=== PATIENT | female | born 1980 | race Caucasian/White ===

== ENCOUNTER 2016-06-09 22:33 | Inpatient (IN) | payer OTHER ==
[~2016-06-09] VITALS: Ht 167.6 cm; Wt 95.2 kg
[~2016-06-09 22:33] MED LIST: CEPH500C PO; DOCU-144 PO; FURO20TA3 PO; HYDR-3498 PO; HYDR-902 PO; LORA0.5T PO; METO5TAB11 PO; PANT20TA2 PO; POLY17PO6 PO
[2016-06-09] MEDS ORDERED: SOD CHLORIDE 0.9% 1,000 ML IV STA (22:46)
[2016-06-09] MEDS ORDERED: ONDANSETRON 4 MG INJ IV STA (22:46)
[2016-06-09] MEDS ORDERED: morphine 4 MG/ML VIAL IV STA (22:46)
[2016-06-09 23:16] LABS: BASOPHILS % 0.5 % (0.0-2.0); EOSINOPHILS % 0.3 % (0.0-7.0); HEMATOCRIT 33.7 % (37.0-47.0); HEMOGLOBIN 11.3 g/dl (12.0-16.0); LYMPHOCYTES # 1.4 10^3/ul (0.8-2.9); LYMPHOCYTES % 14.3 % (15.0-51.0); MEAN CORPUSCULAR HEMOGLOBIN 26.4 pg (29.0-33.0); MEAN CORPUSCULAR HGB CONC 33.5 g/dl (32.0-37.0); MONOCYTE # 0.6 10^3/ul (0.3-0.9); MONOCYTES % 6.7 % (0.0-11.0); NEUTROPHIL # 7.4 10^3/ul (1.6-7.5); NEUTROPHILS % 78.2 % (39.0-77.0); PLATELET COUNT 546 10^3/UL (140-440); RED BLOOD COUNT 4.27 10^6/ul (4.20-5.40); RED CELL DISTRIBUTION WIDTH 21.8 % (11.5-14.5); UNCORRECTED WBC 9.5 10^3/ul (4.8-10.8); WHITE BLOOD COUNT 9.5 10^3/ul (4.8-10.8)
[2016-06-09 23:18] LABS: ALBUMIN 3.2 g/dl (3.3-4.9)
[2016-06-09 23:19] LABS: POTASSIUM 4.6 mmol/L (3.5-5.1)
[2016-06-09 23:21] LABS: ALBUMIN/GLOBULIN RATIO 0.94; BILIRUBIN,INDIRECT 0.3 mg/dl (0-1.1); BILIRUBIN,TOTAL 0.3 mg/dl (0.2-1.3); CALCIUM 9.2 mg/dl (8.4-10.2); CREATININE 0.44 mg/dl (0.44-1.00); TOTAL PROTEIN 6.6 g/dl (6.1-8.1)
[2016-06-09 23:33] LABS: CONDITION 1
[2016-06-09 23:34] LABS: LH ANALYZER COMMENTS 1
--- NOTE | 2016-06-09 23:37 | RADRPT ---
PROCEDURE: XR Abdomen. CLINICAL INDICATION: Abdominal pain. Gastric cancer. Evaluate for obstruction TECHNIQUE: AP abdomen x-rays, upright and supine, a total of 3 images sent to the PACS for review. COMPARISON: CT abdomen and pelvis 04/26/2016 FINDINGS: The bowel gas pattern is normal. There is no evidence of obstruction. Punctate calcifications overly ing the left renal. The osseous structures consistent with renal calculi seen previously. Diffuse "haziness" of the abd omen is suggestive of ascites seen on the prior exam.. No pneumoperitoneum is seen on the upright vi ew. Bilateral pleural effusions and basilar atelectasis of the visualized lung bases is noted. RPTAT:HJJR IMPRESSION: 1. No evidence of bowel obstruction or pneumoperitoneum. 2. Ascites is again suggested similar to the CT of 04/26/2016. 3. Bilateral pleural effusions and compressive atelectasis similar to the prior study. 4. Left renal calculi again noted. Physician Darling Date Time Electronically viewed and signed by Physician Darling on 06/09/2016 23:37 /
[2016-06-09] MEDS ORDERED: HYDROmorphONE 1 MG/ML SYG IV STA (23:53)
[2016-06-10] MEDS ORDERED: IOHEXOL 100 ML ONE (00:27)
[2016-06-10] MEDS ORDERED: SOD CHLORIDE 0.9% 100 ML ONE (00:27)
[2016-06-10] MEDS ORDERED: HEPARIN 1000 UNITS/ML 10 ML INJ IV STA (01:24)
[2016-06-10] MEDS ORDERED: HEPARIN 25000 UNITS/250 ML 250 ML IV STA (01:24)
--- NOTE | 2016-06-10 01:25 | RADRPT ---
PROCEDURE: CTA Chest and pulmonary angiogram. CLINICAL INDICATION: Tachycardia, gastric carcinoma, chest pain, shortness of breath TECHNIQUE: CT scan of the chest and CT pulmonary angiogram was performed on a multidetector high-r esolution CT scanner. High-resolution thin slice coronal and sagittal imaging was obtained from the axial source images. The patient was examined following the intravenous administration of 90 cc of Omnipaque-350. The images were reviewed on a PACS workstation. The total exam CTDI equals 17.05 mGy , and the total exam DLP equals 601.12 mGy-cm. One or more of the following dose reduction techniques were used: - Automated exposure control. - Adjustment of the mA and/or kV according to patient size. - Use of iterative reconstruction technique. COMPARISON: CT abdomen without contrast of 04/26/2016 FINDINGS: The study is limited due to suboptimal opacification of pulmonary arteries. There is appearance of small filling defects consistent with pulmonary emboli in right upper lobe, right lower lobe, lower left upper lobe and lingular segmental/subsegmental pulmonary arteries. Small bilateral partially l oculated appearing pleural effusions are seen. Moderate amount of ascites in visualized upper abdome n. Cholelithiasis. There are nonobstructing calculi in the mid left kidney the largest 4 mm. Small pericardial effusion increased compared to CT abdomen of 04/26/2016. There is approximate 9 mm short axis right paratracheal mediastinal lymph node and an approximate 1.5 cm short axis subcarinal medi astinal lymph node. Linear atelectasis/fibrosis in the lungs. No thoracic aortic aneurysm or dissec tion is seen. IMPRESSION: Limited examination. Positive for pulmonary emboli. Small bilateral partially loculated appearing p leural effusions not significantly changed compared to of 04/26/2016. Small pericardial effusion inc reased compared to 04/26/2016. Enlarged mediastinal lymph node. Moderate amount of ascites in visual ized upper abdomen increased compared to 04/26/2016. Cholelithiasis. Please see above. Critical re sult discussed with Dr. Solorio at 01:20 a.m. on 06/10/2016. RPTAT: HJES .Damien Frost MD, MD Date Time Electronically viewed and signed by .Damien Frost MD, on 06/10/2016 01:25 .S/
[2016-06-10] MEDS ORDERED: ASPIRIN 81 MG TAB PO ONE (01:30)
[2016-06-10] MEDS ORDERED: DICLOFENAC SODIUM 37.5 MG/ML VIAL IV STA (01:41)
[2016-06-10] MEDS ORDERED: ACETAMINOPHEN 325 MG TAB PO PRN ×2 (02:00→07:30)
[2016-06-10] MEDS ORDERED: ONDANSETRON 4 MG INJ IV PRN (02:00)
[2016-06-10] MEDS ORDERED: SOD CHLORIDE 0.9% 1,000 ML IV ONE ×2 (03:30)
[2016-06-10 06:53] VITALS: TEMP 98.2
[2016-06-10] MEDS ORDERED: morphine 2 MG INJ IV PRN (07:30)
[2016-06-10] MEDS ORDERED: HYDROmorphONE 1 MG/ML SYG IV STA (07:30)
[2016-06-10] MEDS ORDERED: NACL 0.9% 3 ML SYG IV SCH (07:30)
[2016-06-10 08:29] LABS: BASOPHILS % 0.1 % (0.0-2.0); EOSINOPHILS % 0.2 % (0.0-7.0); LYMPHOCYTES # 1.5 10^3/ul (0.8-2.9); LYMPHOCYTES % 16.5 % (15.0-51.0); MEAN CORPUSCULAR HEMOGLOBIN 26.4 pg (29.0-33.0); MEAN CORPUSCULAR HGB CONC 33.3 g/dl (32.0-37.0); MEAN CORPUSCULAR VOLUME 79.3 fl (82.0-101.0); MEAN PLATELET VOLUME 6.3 fl (7.4-10.4); MONOCYTE # 0.6 10^3/ul (0.3-0.9); MONOCYTES % 6.9 % (0.0-11.0); NEUTROPHIL # 6.8 10^3/ul (1.6-7.5); NEUTROPHILS % 76.3 % (39.0-77.0); PLATELET COUNT 476 10^3/UL (140-440); RED BLOOD COUNT 3.79 10^6/ul (4.20-5.40); RED CELL DISTRIBUTION WIDTH 22.7 % (11.5-14.5); UNCORRECTED WBC 8.9 10^3/ul (4.8-10.8); WHITE BLOOD COUNT 8.9 10^3/ul (4.8-10.8)
[2016-06-10 08:32] LABS: CONDITION 1; LH ANALYZER COMMENTS 1
[2016-06-10 08:36] LABS: ALBUMIN 2.9 g/dl (3.3-4.9)
[2016-06-10 08:37] LABS: POTASSIUM 3.9 mmol/L (3.5-5.1)
[2016-06-10 08:39] LABS: BILIRUBIN,INDIRECT 0.1 mg/dl (0-1.1); BILIRUBIN,TOTAL 0.1 mg/dl (0.2-1.3); CREATININE 0.43 mg/dl (0.44-1.00)
[2016-06-10 08:40] LABS: ALBUMIN/GLOBULIN RATIO 0.93; CALCIUM 8.3 mg/dl (8.4-10.2); MAGNESIUM 1.6 mg/dl (1.7-2.5)
[2016-06-10] MEDS ORDERED: FUROSEMIDE 20 MG TAB PO SCH (09:00)
[2016-06-10] MEDS ORDERED: PANTOPRAZOLE SODIUM 20 MG TABEC PO SCH (09:00)
[2016-06-10] MEDS: ENOXAPARIN 100 MG/ML SYG SC SCH ×2 (09:00→20:46)
[2016-06-10] MEDS: HYDROmorphONE 1 MG/ML SYG IV PRN ×4 (09:12→22:30)
[2016-06-10] MEDS: METOCLOPRAMIDE 5 MG TAB PO SCH ×3 (09:59→20:47)
[2016-06-10] MEDS: FAMOTIDINE 20 MG INJ IV SCH ×2 (10:00→20:42)
[2016-06-10 10:18] LABS: IRON 38 ug/dl (35-150)
[2016-06-10 10:27] LABS: TOTAL IRON BINDING CAPACITY 212 ug/dl (241-421)
[2016-06-10 13:28] LABS: INR 1.09; PROTIME 14.1 Sec (12.2-14.2); PT RATIO 1.1
[2016-06-10 13:30] LABS: PARTIAL THROMBOPLASTIN TIME 128.3 Sec (25.0-35.0)
--- NOTE | 2016-06-10 14:15 | PN ---
Date/Time of Note Date/Time of Note DATE: 06/10/16 TIME: 14:12 Assessment/Plan VTE Prophylaxis VTE Prophylaxis Intervention: SCD's Assessment/Plan Chief Complaint/Hosp Course Assessment and plan 1. Abdominal pain with moderate ascites. We'll get paracentesis. Continue analgesics as needed. Continue on diuretics. Likely ascites from malignant source 2. Pulmonary embolus and pleural effusion. Patient with still reported shortness of breath. We'll get oversize load pilot escort follow. Continue on heparin. 3. History of stomach cancer. Patient to be followed up by her oncologist as outpatient for this. 4. Leukocytosis likely secondary to #1. Afebrile at present. We'll continue monitor. We'll consider possibility of SBP 5. Iron deficiency anemia. Continue iron Disposition and plan: Plan for paracentesis. Urology Nurse follow. We'll consider instrumentation specialist pending clinical course Discussed plan of care with Dr. Banda Problems: Subjective 24 Hr Interval Summary Free Text/Dictation This doesn't reportedly Exam/Review of Systems Vital Signs Vitals Vital Signs Date Time Temp Pulse Resp B/P Pulse Ox O2 Delivery O2 Flow Rate FiO2 06/10/16 09:53 114 17 123/94 100 Nasal Cannula 6.0 06/10/16 06:53 98.2 06/10/16 04:00 30 Results Result Diagram: 06/10/16 0810 06/10/16 0810 Results 24 hrs Laboratory Tests Test 06/09/16 23:00 06/10/16 05:07 06/10/16 08:10 06/10/16 12:00 Alanine Aminotransferase (ALT/SGPT) 16 24 Albumin 3.2 L 2.9 L Albumin/Globulin Ratio 0.94 0.93 Alkaline Phosphatase 80 81 Anion Gap 18 H 17 H Aspartate Amino Transf (AST/SGOT) 33 19 Basophils # 0.0 0.0 Basophils % 0.5 0.1 Blood Morphology Comment Blood Urea Nitrogen 11 11 Calcium Level 9.2 8.3 L Carbon Dioxide Level 23 21 Chloride Level 97 101 Creatinine 0.44 0.43 L Direct Bilirubin 0.00 0.00 Eosinophils # 0.0 0.0 Eosinophils % 0.3 0.2 Globulin 3.40 H 3.10 Glucose Level 79 84 Hematocrit 33.7 L 30.0 L Hemoglobin 11.3 L 10.0 L Indirect Bilirubin 0.3 0.1 Lactic Acid Level 1.3 Lipase 36 Lymphocytes # 1.4 1.5 Lymphocytes % 14.3 L 16.5 Mean Corpuscular Hemoglobin 26.4 L 26.4 L Mean Corpuscular Hemoglobin Concent 33.5 33.3 Mean Corpuscular Volume 79.0 L 79.3 L Mean Platelet Volume 7.0 L 6.3 L Monocytes # 0.6 0.6 Monocytes % 6.7 6.9 Neutrophils # 7.4 6.8 Neutrophils % 78.2 H 76.3 Nucleated Red Blood Cells # 0.0 0.0 Nucleated Red Blood Cells % 0.0 0.0 Platelet Count 546 H 476 H Potassium Level 4.6 3.9 Red Blood Count 4.27 3.79 L Red Cell Distribution Width 21.8 #H 22.7 H Sodium Level 133 L 135 Total Bilirubin 0.3 0.1 L Total Protein 6.6 6.0 L Troponin I < 0.012 White Blood Count 9.5 # 8.9 Activated Partial Thromboplast Time 155.7 *H 128.3 *H Ferritin 55.5 Iron Level 38 Magnesium Level 1.6 L Percent Iron Saturation 18 L Total Iron Binding Capacity 212 L INR International Normalized Ratio 1.09 Prothrombin Time 14.1 Prothrombin Time Ratio 1.1 Medications Medications Current Medications Ondansetron HCl (Zofran Inj) 4 mg Q6H PRN IV NAUSEA AND/OR VOMITING; Start 06/10 at 07:30 Acetaminophen (Tylenol Tab) 650 mg Q6H PRN PO PAIN LEVEL 1-3 OR FEVER; Start at 07:30 Famotidine (Pepcid Iv) 20 mg Q12 IV Last administered on 06/10/16 10:00; Admin Dose 20 MG; Start 06/10/16 at 09:00 Docusate Sodium (Colace) 100 mg Q12H PRN PO CONSTIPATION; Start 06/10/16 at 07: 30 Furosemide (Lasix) 20 mg DAILY PO Last administered on 06/10/16 10:00; Admin Dose 20 MG; Start 06/10/16 at 09:00 Acetaminophen/ Hydrocodone Bitart (Edwards (10/325)) 1 tab Q6H PRN PO PAIN; Start 06/10/16 at 07:30 Lorazepam (Ativan) 0.5 mg Q8 PRN PO AGITATION/ANXIETY; Start 06/10/16 at 07:30 Metoclopramide HCl (Reglan) 5 mg TID PO Last administered on 06/10/16 09:59; Admin Dose 5 MG; Start 06/10/16 at 09:00 Polyethylene Glycol (Miralax) 8.5 gm DAILY PRN PO CONSTIPATION; Start 06/10/16 at 07:30 Enoxaparin Sodium (Lovenox) 100 mg Q12 SC ; Start 06/10/16 at 09:00 Hydromorphone HCl (Dilaudid) 1 mg Q2 PRN IV pain Last administered on 06/10/16 09:12; Admin Dose 1 MG; Start 06/10/16 at 09:30 CARMEN BHATTI Jun 10, 2016 14:15
[2016-06-10 17:52] VITALS: PULSE 128
[2016-06-10 18:02] VITALS: Ht 167.6 cm; Wt 95.2 kg
[2016-06-10 18:03] VITALS: BP 120/77; PULSE 123; RESP 20
[2016-06-10] MEDS ORDERED: HEPARIN 1000 UNITS/ML 10 ML INJ IV PRN ×2 (19:30)
[2016-06-10 20:00] VITALS: BP 128/63; PULSE 117; RESP 18
[2016-06-10 20:29] VITALS: PULSE 115
[2016-06-10] MEDS: FERROUS SULFATE (EC) 325 MG TAB PO SCH (20:41)
[2016-06-10] MEDS: HEPARIN 25000 UNITS/250 ML 250 ML IV SCH (21:24)
[2016-06-11] VITALS (12 sets, daily range): BP systolic 110–132; BP diastolic 69–91; PULSE 114–130; RESP 16–21
[2016-06-11 02:37] LABS: BASOPHILS % 0.4 % (0.0-2.0); EOSINOPHILS % 0.3 % (0.0-7.0); HEMATOCRIT 29.7 % (37.0-47.0); HEMOGLOBIN 9.7 g/dl (12.0-16.0); LYMPHOCYTES # 1.6 10^3/ul (0.8-2.9); LYMPHOCYTES % 18.8 % (15.0-51.0); MEAN CORPUSCULAR HEMOGLOBIN 26.2 pg (29.0-33.0); MEAN CORPUSCULAR HGB CONC 32.8 g/dl (32.0-37.0); MEAN CORPUSCULAR VOLUME 79.7 fl (82.0-101.0); MEAN PLATELET VOLUME 6.1 fl (7.4-10.4); MONOCYTE # 0.7 10^3/ul (0.3-0.9); MONOCYTES % 7.8 % (0.0-11.0); NEUTROPHIL # 6.3 10^3/ul (1.6-7.5); NEUTROPHILS % 72.7 % (39.0-77.0); PLATELET COUNT 551 10^3/UL (140-440); RED BLOOD COUNT 3.72 10^6/ul (4.20-5.40); RED CELL DISTRIBUTION WIDTH 22.2 % (11.5-14.5); UNCORRECTED WBC 8.7 10^3/ul (4.8-10.8); WHITE BLOOD COUNT 8.7 10^3/ul (4.8-10.8)
[2016-06-11 02:45] LABS: CONDITION 1; LH ANALYZER COMMENTS 1
[2016-06-11 02:55] LABS: POTASSIUM 3.3 mmol/L (3.5-5.1)
[2016-06-11 02:58] LABS: CREATININE 0.47 mg/dl (0.44-1.00)
[2016-06-11 02:59] LABS: CALCIUM 8.5 mg/dl (8.4-10.2); MAGNESIUM 1.6 mg/dl (1.7-2.5)
[2016-06-11] MEDS: HYDROmorphONE 1 MG/ML SYG IV PRN ×7 (03:30→21:42)
[2016-06-11] MEDS: HEPARIN 25000 UNITS/250 ML 250 ML IV SCH (03:50)
[2016-06-11] MEDS: FUROSEMIDE 20 MG TAB PO SCH (05:48)
[2016-06-11] MEDS: FAMOTIDINE 20 MG INJ IV SCH ×2 (08:36→20:56)
[2016-06-11] MEDS: ENOXAPARIN 100 MG/ML SYG SC SCH ×2 (08:36→21:03)
[2016-06-11] MEDS: METOCLOPRAMIDE 5 MG TAB PO SCH ×3 (08:36→20:55)
[2016-06-11] MEDS: FERROUS SULFATE (EC) 325 MG TAB PO SCH ×2 (08:36→20:55)
[2016-06-11] MEDS: ONDANSETRON 4 MG INJ IV PRN ×2 (08:46→15:32)
[2016-06-11] MEDS: LORAZEPAM 0.5 MG TAB PO PRN (08:46)
--- NOTE | 2016-06-11 09:35 | HP ---
DATE OF ADMISSION: 06/10/2016 TIME SEEN: 5 a.m. CHIEF COMPLAINT: Abdominal pain and back pain. HISTORY OF PRESENT ILLNESS: The patient is a 36-year-old female with a history of stomach cancer wi th metastasis and dyspnea on home oxygen, who presented to the emergency department with abdominal p ain and back pain. When she presented to the ER, she was tachycardic with a heart rate of 136 and t achypneic with respiratory rate of 32, otherwise the rest of her vitals were stable. CT pulmonary angiogram was done and it showed a pulmonary embolism as well as moderate ascites, enla rged mediastinal lymph nodes and a partially loculated pleural effusion. She was started on anticoa gulation and admitted for treatment of PE. REVIEW OF SYSTEMS: A 12-point review of systems was performed and is negative except as mentioned in HPI. PAST MEDICAL HISTORY: As per HPI. ALLERGIES: NO KNOWN DRUG ALLERGIES. HOME MEDICATIONS: 1. [place]. 2. Lasix. 3. Ativan. 4. Reglan. 5. Colace. 6. Protonix. PHYSICAL EXAMINATION: VITAL SIGNS: Blood pressure 132/100, heart rate 113, respiratory rate 20, temperature 98.3, oxygen s aturation 98% on 2 liters. GENERAL: The patient in mild distress due to slight breathing problem, otherwise stable. HEENT: No obvious head deformity. His right lower extraocular muscles intact. CARDIOVASCULAR: Tachycardic with regular rhythm. LUNGS: Decreased breath sounds at the bases. ABDOMEN: Soft. There is tenderness diffusely. No rigidity, no guarding. EXTREMITIES: Positive for edema. NEUROLOGIC: No focal deficits. LABORATORY DATA: Sodium 133. Hemoglobin 11.3, platelet count 546. Otherwise CBC is within appropr iate range. IMPRESSION 1. Pulmonary embolism. 2. Abdominal pain. 3. History of stomach cancer, reportedly with metastasis. 4. Iron deficiency anemia. 5. Sinus tachycardia, likely secondary to pulmonary embolus. PLAN: She will be continued on anticoagulation. Oxygen and bronchodilators will also be provided. She is to be followed by pbx supervisor. As far as her abdominal pain is concerned, given her histo ry of stomach cancer it could be as a result of cancer and also ascites, given that she has moderate ascites noted on ultrasound. Plan is to get a paracentesis. Continue pain medication and diuretic s. The fluid will be sent for cytology as well as the culture and cell count. We will also continu e her home medications with adjustment as needed. Further workup and management will be per clinical course. Dictated By: TEREZA MARQUEZ/CAROL Conf#: [id number] DID#: [id number]
--- NOTE | 2016-06-11 13:51 | CONS ---
DATE OF ADMISSION: 06/10/2016 DATE OF CONSULTATION: 06/11/2016 PULMONARY CONSULTATION REASON FOR CONSULTATION: Pulmonary embolism. Thank you, Dr. Madden, for this consultation. HISTORY OF PRESENT ILLNESS: This is an unfortunate 36-year-old lady with a history of gastric cance r, recent admission for pleural effusion. Underwent thoracentesis last month. Now presents with ab dominal pain and dyspnea on exertion. Had a CT angiogram on admission for tachycardia, found to hav e evidence of pulmonary embolism. The patient now commenced on heparin drip for anticoagulation, be ing transitioned to Lovenox. PAST MEDICAL HISTORY: 1. Metastatic gastric cancer. 2. History of pleural effusion. 3. Obesity. 4. History of ascites secondary to malignancy. MEDICATIONS: Per chart. ALLERGIES: NONE. SOCIAL HISTORY: Nonsmoker, no alcohol, no history of drug use. FAMILY HISTORY: Noncontributory. SYSTEMS REVIEW: A 12-point review of systems was negative other than that mentioned above. PHYSICAL EXAMINATION: GENERAL: Well-nourished, well-developed lady, appears comfortable at rest, no acute distress. VITAL SIGNS: Currently afebrile, pulse is 118, blood pressure 110/73, O2 saturation 96% on 6 L nasa l cannula. NECK: Supple. No JVD or lymphadenopathy. CARDIAC: S1, S2, no added sounds or murmurs. CHEST: Diminished air entry bilaterally. ABDOMEN: Soft, nontender. No guarding or rebound. EXTREMITIES: No cyanosis, clubbing, edema. NEUROLOGIC: Grossly intact. No focal deficits. ASSESSMENT: 1. History of gastric cancer. 2. New pulmonary emboli. 3. History of pleural effusion. 4. Ascites, likely secondary to underlying malignancy. The patient will require: 1. Continue anticoagulation. I will switch to Lovenox. 2. Obtain lower extremity Dopplers, rule out deep vein thrombosis. The patient may require vena ca va filter. 3. Continue aspiration precautions. 4. Consider hematology/oncology recommendations. 5. Deep venous thrombosis and gastrointestinal prophylaxis. Dictated By: ERROL CORBETT/CAROL Conf#: [id number] DID#: [id number]
--- NOTE | 2016-06-11 14:32 | RADRPT ---
PROCEDURE: US DVT. CLINICAL INDICATION: Pulmonary embolism, leg swelling. TECHNIQUE: Multiple longitudinal and transverse images of the bilateral lower extremity veins were obtained with osorio scale and color Doppler imaging. 2D grayscale measurements with compression, co sami Doppler flow, and augmentation was performed. The calf veins were interrogated as well. COMPARISON: CTA chest, 06/10/2016 FINDINGS: No evidence of DVT is identified in the right lower extremity. Distal left superficial femoral vein demonstrates noncompressibility and increased internal echogeni city, compatible with DVT in this location. The remainder of the left lower extremity deep venous s ystem is patent. IMPRESSION: 1. The study is positive for DVT in the distal left superficial femoral vein, as above. RPTAT: QQ .Damian Ford MD, MD Date Time Electronically viewed and signed by .Damian Ford MD, on 06/11/2016 14:31 .R/
[2016-06-11] MEDS ORDERED: POTASSIUM CHLORIDE (SR) 20 MEQ TAB PO STA (15:57)
[2016-06-11] MEDS ORDERED: MAGNESIUM SULFATE 2 GM/50 ML 50 ML IVPB ONE (16:00)
--- NOTE | 2016-06-11 17:15 | PN ---
DATE: 06/11/2016 SUBJECTIVE DATA: Complains of severe abdominal pain. Complains of nausea and intolerance to oral intake. OBJECTIVE DATA: VITAL SIGNS: Temperature 98.7, pulse rate 182, respiratory rate 20, blood pressure 132/75, oxygen saturation 98% on supplemental oxygen. GENERAL: This is an obese female lying in bed in mild to moderate respiratory distress with oxygen via nasal cannula on. HEENT: Head normocephalic and atraumatic. Eyes: Anicteric sclerae. Conjunctivae clear. ENT: Nasal septum is midline. Oral mucosa is dry. NECK: Supple. No JVD noticed. RESPIRATORY: Bilaterally diminished breath sounds. Use of accessory muscles of respiration. CARDIAC: Regular rate and rhythm. Sinus tachycardia. ABDOMEN: Distended. Ascites. Diffuse tenderness. GENITOURINARY: Deferred. EXTREMITIES: No cyanosis, no clubbing, no edema. Peripheral pulses palpable. NEUROLOGIC: The patient is awake, alert and oriented. Cranial nerves are grossly intact. LABORATORY AND DIAGNOSTIC DATA: WBC 8.7, hemoglobin 9.7, hematocrit 29.7, platelet count 551. Sodium 137, potassium 3.3, chloride 100, carbon dioxide 28 , anion gap 15, BUN 8, creatinine 0.47, glucose 76, calcium 8.5, magnesium 1.6. ASSESSMENT AND PLAN: 1. Pulmonary embolism. Continue therapeutic anticoagulation. Continue supplemental oxygen. Status post evaluation by pulmonology. 2. Left distal superficial femoral vein deep venous thrombosis. Continue treatment as per #1. We will involve vascular surgery on case for placement of an inferior vena cava filter since the patient has hypercoagulability secondary to underlying malignancy. 2. Abdominal pain with moderate ascites, most probably malignant ascites. Paracentesis ordered. 3. History of stomach cancer. The patient is being followed by outpatient oncology. As per the patient, the patient has finished chemotherapy. 4. Microcytic hypochromic anemia. Underlying deficiency. Continue iron supplements. 5. Bilateral pleural effusions. Continue diuresis. Fluid, electrolytes and nutrition. Regular diet as tolerated. 6. Deep venous thrombosis prophylaxis. Therapeutic anticoagulation. 7. Gastrointestinal prophylaxis. H2 receptor blockers. PLAN: 1. Continue with paracentesis. 2. Involve vascular surgery on the case for inferior vena cava filter placement. Case discussed with Dr. Ortiz. NAYELY ORTIZ MD, AM/CAROL Conf#: [id number] [facility]#: [id number] MTDD
[2016-06-11] MEDS ORDERED: LIDOCAINE 1% (MPF) 5 ML VIAL ONE ×2 (17:47)
[2016-06-11] MEDS: D5W-0.45 NACL + KCL 20 MEQ 1,000 ML IV SCH (18:05)
--- NOTE | 2016-06-11 19:00 | RADRPT ---
PROCEDURE: Renal US. CLINICAL INDICATION: Ascites. TECHNIQUE: Ultrasound guided paracentesis. COMPARISON: CTA chest with partially visualized upper abdomen dated 06/10/2016. CT abdomen and pel vis dated 04/26/2016. FINDINGS: Abdominal ascites is visualized. 5000 cc fluid aspirated from left lower quadrant, as per document provided with these images. IMPRESSION: 5000 cc fluid aspirated from left lower quadrant. RPTAT: [facility]U Patty Zelaya Physician Date Time Electronically viewed and signed by Patty Zelaya Physician on 06/11/2016 18:59 RS/
[2016-06-11] MEDS: HYDROCODONE/APAP (10/325) TAB PO PRN (20:55)
[2016-06-12] VITALS (12 sets, daily range): BP systolic 107–123; BP diastolic 62–95; PULSE 119–135; RESP 16–21
[2016-06-12] MEDS: HYDROmorphONE 1 MG/ML SYG IV PRN ×3 (03:12→14:13)
--- NOTE | 2016-06-12 03:19 | ERA ---
DATE OF SERVICE: 06/10/2016 HISTORY OF PRESENT ILLNESS: This 36-year-old female presents to the emergency room for abdominal pain that has been going on for about a day and a half, described as a sharp pain. She first noticed it 4 days ago. In the last day and one-half, it has gotten much worse. She has a history of stomach cancer. She also has nausea and an episode of vomiting that was nonbloody, nonbilious. She also states that she has been feeling intermittent heart palpitations. REVIEW OF SYSTEMS: A 10-point review of systems negative except as in the HPI. PAST MEDICAL HISTORY: Stomach cancer. PAST SURGICAL HISTORY: Negative. FAMILY HISTORY: Noncontributory. SOCIAL HISTORY: Denies tobacco, alcohol, or other drugs. PHYSICAL EXAMINATION: VITAL SIGNS: Temperature 97.7, pulse 136, respiratory rate 32, blood pressure 110/89, oxygen saturation 100% on room air. GENERAL: Mild distress. HEENT: Normocephalic, atraumatic. NECK: Supple, no JVD or meningismus. CARDIAC: Regular tachycardia without murmurs. LUNGS: Clear to auscultation bilaterally. ABDOMEN: Mild to moderate abdominal tenderness in mid abdomen and left abdomen. No guarding or rebound. Bowel sounds positive. SKIN: No rashes or other lesions. NEUROLOGIC: Alert and oriented x3 with no focal deficits. VASCULAR: Distal pulses intact all 4 extremities. EXTREMITIES: No cyanosis, clubbing, or edema. LABORATORY DATA: CBC significant for mild microcytic anemia, elevated platelet count of 546. Chemistries significant for mildly decreased sodium of 133. Liver function tests and lipase are within normal limits. Lactic acid is not elevated. Troponin is negative. IMAGING: A 2-view abdominal x-ray interpretation by myself: No acute process, no obstruction, no free air, no acute bony abnormalities. CT chest angiogram interpretation: Bilateral pulmonary emboli, small bilateral pleural effusions. No pneumothorax, no pulmonary edema. Moderate abdominal ascites. No fractures. EMERGENCY DEPARTMENT COURSE AND MEDICAL DECISION MAKING: Pulmonary embolism in a patient with acute abdominal pain from stomach cancer. Initially an abdominal workup was performed. The patient was not found any liver or pancreatic lab abnormalities; however, she does have moderate ascites which may be contributing to the pain. Due to her unstable vital signs, history of cancer , I performed a CT angiogram which was positive for pulmonary embolus. The patient's shortness of breath is only mildly improved with oxygen. She was given aspirin and heparin bolus and placed on a heparin drip. She had no signs of hypotension. I will discuss telemetry versus critical care admission with admitting doctor, Dr. Madden. The patient's pain was controlled with morphine and Dilaudid as well as Dyloject IV. She was hydrated with 2 liters of normal saline. She will be continue to be monitored very closely for any worsening of pulmonary embolism. Heart rate was decreased with pain control, fluid administration, and oxygen. CRITICAL CARE TIME: 34 minutes: This includes treatment of unstable vital signs related to a pulmonary embolism in a patient with active cancer, careful fluid administration, pain control, heparinization, multiple visits to the patient's bedside to reassess status for decompensation, chart review, discussion with admitting doctor and patient. ADMISSION DIAGNOSES: 1. Pulmonary embolus. 2. Acute abdominal pain. 3. Stomach cancer. 4. Dyspnea 5. Hyponatremia. DISPOSITION: Admitted in serious condition. Dictated By: TYSON SAMUEL/CAROL Conf#: [id number] DID#: [id number] MTDD
[2016-06-12] MEDS: FUROSEMIDE 20 MG TAB PO SCH (06:37)
[2016-06-12 07:21] LABS: BASOPHILS % 0.5 % (0.0-2.0); EOSINOPHILS % 0.3 % (0.0-7.0); HEMATOCRIT 30.6 % (37.0-47.0); HEMOGLOBIN 10.1 g/dl (12.0-16.0); LYMPHOCYTES # 1.1 10^3/ul (0.8-2.9); LYMPHOCYTES % 15.9 % (15.0-51.0); MEAN CORPUSCULAR HEMOGLOBIN 26.4 pg (29.0-33.0); MEAN CORPUSCULAR HGB CONC 33.2 g/dl (32.0-37.0); MEAN CORPUSCULAR VOLUME 79.5 fl (82.0-101.0); MEAN PLATELET VOLUME 6.9 fl (7.4-10.4); MONOCYTE # 0.5 10^3/ul (0.3-0.9); NEUTROPHIL # 5.2 10^3/ul (1.6-7.5); NEUTROPHILS % 75.3 % (39.0-77.0); PLATELET COUNT 489 10^3/UL (140-440); RED BLOOD COUNT 3.85 10^6/ul (4.20-5.40); UNCORRECTED WBC 6.8 10^3/ul (4.8-10.8); WHITE BLOOD COUNT 6.8 10^3/ul (4.8-10.8)
[2016-06-12 07:33] LABS: CONDITION 1; LH ANALYZER COMMENTS 1
[2016-06-12 07:55] LABS: PHOSPHORUS 3.6 mg/dl (2.5-4.9)
[2016-06-12 07:56] LABS: POTASSIUM 3.3 mmol/L (3.5-5.1)
[2016-06-12 07:59] LABS: CALCIUM 8.3 mg/dl (8.4-10.2); CREATININE 0.45 mg/dl (0.44-1.00)
[2016-06-12] MEDS: METOCLOPRAMIDE 5 MG TAB PO SCH ×3 (08:31→20:45)
[2016-06-12] MEDS: FAMOTIDINE 20 MG INJ IV SCH ×2 (08:31→20:44)
[2016-06-12] MEDS: FERROUS SULFATE (EC) 325 MG TAB PO SCH ×2 (08:31→20:44)
[2016-06-12] MEDS: ENOXAPARIN 100 MG/ML SYG SC SCH ×2 (08:33→20:54)
[2016-06-12] MEDS: D5W-0.45 NACL + KCL 20 MEQ 1,000 ML IV SCH ×2 (08:39→16:35)
[2016-06-12] MEDS: ONDANSETRON 4 MG INJ IV PRN ×2 (08:47→14:12)
[2016-06-12] MEDS: HYDROCODONE/APAP (10/325) TAB PO PRN (08:47)
[2016-06-12] MEDS: LORAZEPAM 0.5 MG TAB PO PRN (08:47)
--- NOTE | 2016-06-12 13:46 | PN ---
Date/Time of Note Date/Time of Note DATE: 06/12/16 TIME: 13:45 Assessment/Plan VTE Prophylaxis VTE Prophylaxis Intervention: LMWH Lines/Catheters IV Catheter Type (from [facility]): Peripheral IV Urinary Cath still in place: No Assessment/Plan Chief Complaint/Hosp Course 1. Pulmonary embolism. Continue therapeutic anticoagulation. Continue supplemental oxygen. Status post evaluation by pulmonology. 2. Left distal superficial femoral vein deep venous thrombosis. Continue treatment as per #1. Will involve vascular surgery on case for placement of an inferior vena cava filter since the patient has hypercoagulability secondary to underlying malignancy. 2. Abdominal pain with moderate ascites, most probably malignant ascites. Paracentesis ordered. 3. History of stomach cancer. The patient is being followed by outpatient oncology. As per the patient, the patient has finished chemotherapy. 4. Microcytic hypochromic anemia. Underlying deficiency. Continue iron supplements. 5. Bilateral pleural effusions. Continue diuresis. Fluid, electrolytes and nutrition. Regular diet as tolerated. 6. Deep venous thrombosis prophylaxis. Therapeutic anticoagulation. 7. Gastrointestinal prophylaxis. H2 receptor blockers. 8. Plan. Continue therapeutic anticoagulation. Will await IVC filter placement. Will switch the patient to oral anticoagulation once IVC filter is placed. Case discussed with . Problems: Subjective 24 Hr Interval Summary Free Text/Dictation Complains of severe abdominal pain. Poor oral intake. Exam/Review of Systems Vital Signs Vitals Vital Signs Date Time Temp Pulse Resp B/P Pulse Ox O2 Delivery O2 Flow Rate FiO2 06/12/16 12:30 122 06/12/16 11:39 98.3 20 111/77 100 06/12/16 07:29 Nasal Cannula 6.0 06/10/16 04:00 30 Intake and Output 06/11/16 06/11/16 06/12/16 15:00 23:00 07:00 Intake Total 820 ml Output Total 500 ml Balance 320 ml Exam GENERAL: This is an obese female lying in bed in mild to moderate respiratory distress with oxygen via nasal cannula on. HEENT: Head normocephalic and atraumatic. Eyes: Anicteric sclerae. Conjunctivae clear. ENT: Nasal septum is midline. Oral mucosa is dry. NECK: Supple. No JVD noticed. RESPIRATORY: Bilaterally diminished breath sounds. Use of accessory muscles of respiration. CARDIAC: Regular rate and rhythm. Sinus tachycardia. ABDOMEN: Distended. Ascites. Diffuse tenderness. GENITOURINARY: Deferred. EXTREMITIES: No cyanosis, no clubbing, no edema. Peripheral pulses palpable. NEUROLOGIC: The patient is awake, alert and oriented. Cranial nerves are grossly intact. Results Result Diagram: 06/12/16 0644 06/12/16 0644 Results 24 hrs Laboratory Tests Test 06/11/16 15:20 06/12/16 06:44 Activated Partial Thromboplast Time 47.8 H Anion Gap 13 Basophils # 0.0 Basophils % 0.5 Blood Morphology Comment Blood Urea Nitrogen 7 Calcium Level 8.3 L Carbon Dioxide Level 28 Chloride Level 98 Creatinine 0.45 Eosinophils # 0.0 Eosinophils % 0.3 Glucose Level 79 Hematocrit 30.6 L Hemoglobin 10.1 L Lymphocytes # 1.1 Lymphocytes % 15.9 Magnesium Level 2.0 Mean Corpuscular Hemoglobin 26.4 L Mean Corpuscular Hemoglobin Concent 33.2 Mean Corpuscular Volume 79.5 L Mean Platelet Volume 6.9 L Monocytes # 0.5 Monocytes % 8.0 Neutrophils # 5.2 Neutrophils % 75.3 Nucleated Red Blood Cells # 0.0 Nucleated Red Blood Cells % 0.0 Phosphorus Level 3.6 Platelet Count 489 H Potassium Level 3.3 L Red Blood Count 3.85 L Red Cell Distribution Width 22.0 H Sodium Level 136 White Blood Count 6.8 # Medications Medications Current Medications Ondansetron HCl (Zofran Inj) 4 mg Q6H PRN IV NAUSEA AND/OR VOMITING Last administered on 06/12/16 08:47; Admin Dose 4 MG; Start 06/10/16 at 07:30 Acetaminophen (Tylenol Tab) 650 mg Q6H PRN PO PAIN LEVEL 1-3 OR FEVER; Start at 07:30 Famotidine (Pepcid Iv) 20 mg Q12 IV Last administered on 06/12/16 08:31; Admin Dose 20 MG; Start 06/10/16 at 09:00 Docusate Sodium (Colace) 100 mg Q12H PRN PO CONSTIPATION; Start 06/10/16 at 07: 30 Acetaminophen/ Hydrocodone Bitart ([place] (10/325)) 1 tab Q6H PRN PO PAIN Last administered on 06/12/16 08:47; Admin Dose 1 TAB; Start 06/10/16 at 07:30 Lorazepam (Ativan) 0.5 mg Q8 PRN PO AGITATION/ANXIETY Last administered on 08:47; Admin Dose 0.5 MG; Start 06/10/16 at 07:30 Metoclopramide HCl (Reglan) 5 mg TID PO Last administered on 06/12/16 12:38; Admin Dose 5 MG; Start 06/10/16 at 09:00 Polyethylene Glycol (Miralax) 8.5 gm DAILY PRN PO CONSTIPATION; Start 06/10/16 at 07:30 Enoxaparin Sodium (Lovenox) 100 mg Q12 SC Last administered on 06/12/16 08:33; Admin Dose 100 MG; Start 06/10/16 at 09:00 Hydromorphone HCl (Dilaudid) 1 mg Q2 PRN IV pain Last administered on 06/12/16 07:03; Admin Dose 1 MG; Start 06/10/16 at 09:30 Ferrous Sulfate (Ferrous Sulfate (Ec)) 325 mg BID PO Last administered on 08:31; Admin Dose 325 MG; Start 06/10/16 at 21:00 Furosemide 20 mg 20 mg DAILY@06 PO Last administered on 06/12/16 06:37; Admin Dose 20 MG; Start 06/11/16 at 06:00 Potassium Chloride/Dextrose/ Sod Cl (D5-1/2ns + KCl 20 Meq) 1,000 ml @ 60 mls/ hr [id number] IV Last administered on 06/11/16 18:05; Admin Dose 60 MLS/HR; Start 06/11/16 at 16:00 NAYELY LINTON NP Jun 12, 2016 13:45
--- NOTE | 2016-06-12 15:31 | CONS ---
Date/Time of Note Date/Time of Note DATE: 06/12/16 TIME: 15:29 Consult Date/Type/Reason Admit Date/Time Jun 10, 2016 at 01:43 Initial Consult Date Type of Consultation: pulmonary Subjective Patient remained stable no new events Objective Vital Signs Date Time Temp Pulse Resp B/P Pulse Ox O2 Delivery O2 Flow Rate FiO2 06/12/16 12:30 122 06/12/16 11:39 98.3 20 111/77 100 06/12/16 07:29 Nasal Cannula 6.0 06/10/16 04:00 30 Intake and Output 06/11/16 06/11/16 06/12/16 15:00 23:00 07:00 Intake Total 820 ml Output Total 500 ml Balance 320 ml Results/Medications Result Diagram: 06/12/1644 06/12/16 0644 Results 24 hrs Laboratory Tests Test 06/12/16 06:44 Anion Gap 13 Basophils # 0.0 Basophils % 0.5 Blood Morphology Comment Blood Urea Nitrogen 7 Calcium Level 8.3 L Carbon Dioxide Level 28 Chloride Level 98 Creatinine 0.45 Eosinophils # 0.0 Eosinophils % 0.3 Glucose Level 79 Hematocrit 30.6 L Hemoglobin 10.1 L Lymphocytes # 1.1 Lymphocytes % 15.9 Magnesium Level 2.0 Mean Corpuscular Hemoglobin 26.4 L Mean Corpuscular Hemoglobin Concent 33.2 Mean Corpuscular Volume 79.5 L Mean Platelet Volume 6.9 L Monocytes # 0.5 Monocytes % 8.0 Neutrophils # 5.2 Neutrophils % 75.3 Nucleated Red Blood Cells # 0.0 Nucleated Red Blood Cells % 0.0 Phosphorus Level 3.6 Platelet Count 489 H Potassium Level 3.3 L Red Blood Count 3.85 L Red Cell Distribution Width 22.0 H Sodium Level 136 White Blood Count 6.8 # Medications Current Medications Ondansetron HCl (Zofran Inj) 4 mg Q6H PRN IV NAUSEA AND/OR VOMITING Last administered on 06/12/16 14:12; Admin Dose 4 MG; Start 06/10/16 at 07:30 Acetaminophen (Tylenol Tab) 650 mg Q6H PRN PO PAIN LEVEL 1-3 OR FEVER; Start at 07:30 Famotidine (Pepcid Iv) 20 mg Q12 IV Last administered on 06/12/16 08:31; Admin Dose 20 MG; Start 06/10/16 at 09:00 Docusate Sodium (Colace) 100 mg Q12H PRN PO CONSTIPATION; Start 06/10/16 at 07: 30 Acetaminophen/ Hydrocodone Bitart ([place] (10/325)) 1 tab Q6H PRN PO PAIN Last administered on 06/12/16 08:47; Admin Dose 1 TAB; Start 06/10/16 at 07:30 Lorazepam (Ativan) 0.5 mg Q8 PRN PO AGITATION/ANXIETY Last administered on 08:47; Admin Dose 0.5 MG; Start 06/10/16 at 07:30 Metoclopramide HCl (Reglan) 5 mg TID PO Last administered on 06/12/16 12:38; Admin Dose 5 MG; Start 06/10/16 at 09:00 Polyethylene Glycol (Miralax) 8.5 gm DAILY PRN PO CONSTIPATION; Start 06/10/16 at 07:30 Enoxaparin Sodium (Lovenox) 100 mg Q12 SC Last administered on 06/12/16 08:33; Admin Dose 100 MG; Start 06/10/16 at 09:00 Hydromorphone HCl (Dilaudid) 1 mg Q2 PRN IV pain Last administered on 06/12/16 14:13; Admin Dose 1 MG; Start 06/10/16 at 09:30 Ferrous Sulfate (Ferrous Sulfate (Ec)) 325 mg BID PO Last administered on 08:31; Admin Dose 325 MG; Start 06/10/16 at 21:00 Furosemide 20 mg 20 mg DAILY@06 PO Last administered on 06/12/16 06:37; Admin Dose 20 MG; Start 06/11/16 at 06:00 Potassium Chloride/Dextrose/ Sod Cl (D5-1/2ns + KCl 20 Meq) 1,000 ml @ 60 mls/ hr [id number] IV Last administered on 06/11/16 18:05; Admin Dose 60 MLS/HR; Start 06/11/16 at 16:00 Assessment/Plan Chief Complaint/Hosp Course Pending IVC filter ASSESSMENT: 1. History of gastric cancer. 2. New pulmonary emboli. 3. History of pleural effusion. 4. Ascites, likely secondary to underlying malignancy. The patient will require: 1. Continue anticoagulation. I will switch to Lovenox. 2. Deep vein thrombosis. Pending IVC filter 3. Continue aspiration precautions. 4. Consider hematology/oncology recommendations. 5. Deep venous thrombosis and gastrointestinal prophylaxis. Problems: ERROL TUCKER [facility], [facility] Jun 12, 2016 15:31
[2016-06-12] MEDS ORDERED: HYDROmorphONE 1 MG/ML SYG IV STA (16:22)
[2016-06-12] MEDS ORDERED: HYDROmorphONE 0.2 MG/ML PCA IV SCH ×3 (16:30→19:30)
[2016-06-12] MEDS ORDERED: POTASSIUM CHLORIDE 20 MEQ POWDER FOR ORAL SOLN PO ONE (19:30)
[2016-06-12] MEDS: HYDROmorphONE 0.2 MG/ML PCA IV SCH (21:19)
--- NOTE | 2016-06-12 22:13 | CONS ---
DATE OF ADMISSION: 06/10/2016 DATE OF CONSULTATION: 06/12/2016 TYPE OF CONSULTATION: Vascular surgery. Dear Doctors: HISTORY OF PRESENT ILLNESS: Mrs. Hernandez is a 36-year-old female with history of stomach cance r that was diagnosed in 08/2015 with metastatic disease. Unfortunately, the patient was started on chemotherapy in which she was not able to tolerate and has stopped her chemo since. The patient was prophylactically started on Lovenox b.i.d. treatments about 3 to 4 months ago per her reporting and , in light of her being on Lovenox, she has developed pulmonary embolism. In addition, she also was identified to have deep vein thrombosis that was found in the distal left superficial femoral vein. The small filling defects that were consistent with pulmonary emboli in the right upper lobe, righ t lower lobe, left upper lobe, and lingular segmental/subsegmental pulmonary arteries. At the [facility], she does have some shortness of breath on nasal cannula with oxygen and tachypneic and tachycardi c. She is on telemetry bed. She denies any claudication or rest pain of her lower extremities. REVIEW OF SYSTEMS: A 12-point review performed and negative except what is mentioned in the HPI. S he denies nausea, vomiting, fever, or chills. PAST MEDICAL HISTORY: Entails metastatic stomach cancer, no longer on chemo. Deep vein thrombosis and pulmonary embolism. PAST SURGICAL HISTORY: None. ALLERGIES: NO KNOWN DRUG ALLERGIES. FAMILY HISTORY: Denies any hypercoagulable state. SOCIAL HISTORY: Denies alcohol, tobacco, or illicit drug use. PHYSICAL EXAMINATION: GENERAL: Alert and oriented x3. At the moment, she is comfortable even though a bit tachypneic. HEENT: Normocephalic, atraumatic. PERRLA, EOMI. Mucosa moist. NECK: Supple. No carotid bruit. PULMONARY: Coarse breath sounds bilaterally, crackles at the bases. CARDIOVASCULAR: Tachycardic. S1, S2 present. ABDOMEN: Soft, nontender, nondistended. Bowel sounds positive. Truncal obesity. EXTREMITIES: Palpable femoral pulses, palpable pedal pulses. Motor, sensory intact. Capillary ref ill 2 to 3 seconds. Edema 1 of the left lower extremity. ASSESSMENT AND PLAN: Left lower extremity deep vein thrombosis and pulmonary embolism in bilateral pulmonary arteries: It seems that the patient's metastatic stomach cancer is the likely the cause o f her being hypercoagulable and developing deep vein thrombosis and pulmonary embolism. Despite her being on prophylactic anticoagulation, she has developed pulmonary embolism. 1. I would recommend for her to have an inferior vena cava filter placement, in light of these find ings. However, the patient is not a candidate for endovascular interventions, such as thrombolysis or thrombectomy, as the patient's prognosis seems to be poor, as she no longer wants to continue wit h chemotherapy. 2. Would recommend to obtain a possible prognosis if the patient is planning to pursue any treatmen ts for stomach cancer in which we can reconsider our endovascular interventions. 3. Optimize vascular status. 4. Continue with her anticoagulation for now. 5. Will plan to place IVC filter in the coming days. 6. Elevate left lower extremity. 7. Discussed findings, plan, and management with the patient and family at the bedside with a certi fied glue maker bone and they understand. Thank you for allowing us to partake in the care of your patient. Please call with any questions. Dictated By: RACHID NUNEZ/CAROL Conf#: [id number] DID#: [id number] CC: TEREZA NEGRETE MD;*EndCC*
[2016-06-13] VITALS (13 sets, daily range): BP systolic 102–146; BP diastolic 74–99; PULSE 126–153; RESP 16–20
[2016-06-13] MEDS: ONDANSETRON 4 MG INJ IV PRN ×3 (00:58→18:47)
[2016-06-13] MEDS: HYDROmorphONE 0.2 MG/ML PCA IV SCH ×5 (00:58→19:40)
[2016-06-13] MEDS: FUROSEMIDE 20 MG TAB PO SCH (05:39)
[2016-06-13 08:21] LABS: BASOPHILS % 0.2 % (0.0-2.0); EOSINOPHILS % 0.2 % (0.0-7.0); HEMATOCRIT 33.2 % (37.0-47.0); LYMPHOCYTES # 1.3 10^3/ul (0.8-2.9); LYMPHOCYTES % 11.3 % (15.0-51.0); MEAN CORPUSCULAR HEMOGLOBIN 26.4 pg (29.0-33.0); MEAN CORPUSCULAR HGB CONC 33.2 g/dl (32.0-37.0); MEAN CORPUSCULAR VOLUME 79.6 fl (82.0-101.0); MONOCYTE # 1.1 10^3/ul (0.3-0.9); NEUTROPHIL # 9.2 10^3/ul (1.6-7.5); NEUTROPHILS % 79.3 % (39.0-77.0); PLATELET COUNT 593 10^3/UL (140-440); RED BLOOD COUNT 4.17 10^6/ul (4.20-5.40); RED CELL DISTRIBUTION WIDTH 21.5 % (11.5-14.5); UNCORRECTED WBC 11.6 10^3/ul (4.8-10.8); WHITE BLOOD COUNT 11.6 10^3/ul (4.8-10.8)
[2016-06-13 08:29] LABS: CONDITION 1; LH ANALYZER COMMENTS 1
[2016-06-13 08:37] LABS: POTASSIUM 4.1 mmol/L (3.5-5.1)
[2016-06-13 08:40] LABS: CREATININE 0.45 mg/dl (0.44-1.00)
[2016-06-13 08:41] LABS: CALCIUM 8.5 mg/dl (8.4-10.2)
[2016-06-13] MEDS: METOCLOPRAMIDE 5 MG TAB PO SCH ×3 (08:48→22:02)
[2016-06-13] MEDS: FAMOTIDINE 20 MG INJ IV SCH ×2 (08:48→22:02)
[2016-06-13] MEDS: FERROUS SULFATE (EC) 325 MG TAB PO SCH ×2 (08:48→22:02)
[2016-06-13 08:50] LABS: PHOSPHORUS 3.6 mg/dl (2.5-4.9)
[2016-06-13 08:51] LABS: MAGNESIUM 1.6 mg/dl (1.7-2.5)
[2016-06-13] MEDS: ENOXAPARIN 100 MG/ML SYG SC SCH ×2 (08:51→23:25)
--- NOTE | 2016-06-13 11:18 | RADRPT ---
PROCEDURE: Chest Radiograph. CLINICAL INDICATION: Dyspnea TECHNIQUE: Single frontal chest radiograph. COMPARISON: Chest radiograph 04/17/2016. CT chest 06/10/2016 FINDINGS: The cardiomediastinal silhouette is within normal limits. There is a small left pleural effusion wi th adjacent atelectasis. There is moderate right basilar atelectasis and mild left basilar atelecta sis . No confluent or lobar infiltrate is seen. The bones are intact. IMPRESSION: 1. Small right pleural effusion. 2. Moderate right and mild left basilar atelectasis. RPTAT: KK .Mason Siddiqi MD, MD Date Time Electronically viewed and signed by .Mason Siddiqi MD, on 06/13/2016 11:18 .B/
[2016-06-13] MEDS ORDERED: FUROSEMIDE 40 MG INJ IV ONE (11:30)
[2016-06-13] MEDS ORDERED: MAGNESIUM SULFATE 2 GM/50 ML 50 ML IVPB SCH (12:00)
--- NOTE | 2016-06-13 12:05 | PN ---
Date/Time of Note Date/Time of Note DATE: 06/13/16 TIME: 12:04 Assessment/Plan VTE Prophylaxis VTE Prophylaxis Intervention: LMWH, other (Therapeutic anticoagulation) Lines/Catheters IV Catheter Type (from [facility]): Peripheral IV Urinary Cath still in place: No Assessment/Plan Chief Complaint/Hosp Course 1. Pulmonary embolism. Continue therapeutic anticoagulation. Continue supplemental oxygen. Status post evaluation by pulmonology. 2. Left distal superficial femoral vein deep venous thrombosis. Continue treatment as per #1. Will involve vascular surgery on case for placement of an inferior vena cava filter since the patient has hypercoagulability secondary to underlying malignancy. 2. Abdominal pain with moderate ascites, most probably malignant ascites. Status post paracentesis. 3. History of stomach cancer. The patient is being followed by outpatient oncology. 4. Microcytic hypochromic anemia. Underlying deficiency. Continue iron supplements. 5. Bilateral pleural effusions. Continue diuresis. 6. Sinus tachycardia. Etiology unclear. Will obtain cardiology evaluation. Will obtain a 2D echocardiogram to evaluate for any underlying pericardial effusion provided the patient's history of malignancy 7. Fluid, electrolytes and nutrition. Regular diet as tolerated. 8. Deep venous thrombosis prophylaxis. Therapeutic anticoagulation. 9. Gastrointestinal prophylaxis. H2 receptor blockers. 10. Plan. Continue therapeutic anticoagulation. Will await IVC filter placement. Will switch the patient to oral anticoagulation once IVC filter is placed. Cardiology consult called for evaluation of sinus tachycardia. Case discussed with . Problems: Subjective 24 Hr Interval Summary Free Text/Dictation The patient was started on [employer] for pain control. Appreciate pain management inputs. The patient started having sinus tachycardia since the morning. The patient denied any chest pain. Patient verbalized that her pain is fairly well- controlled with [employer] Exam/Review of Systems Vital Signs Vitals Vital Signs Date Time Temp Pulse Resp B/P Pulse Ox O2 Delivery O2 Flow Rate FiO2 06/13/16 08:58 153 06/13/16 08:04 98.5 20 128/95 100 06/13/16 01:31 3.0 06/12/16 20:00 Nasal Cannula 06/10/16 04:00 30 Intake and Output 06/12/16 06/12/16 06/13/16 14:59 22:59 06:59 Intake Total 1080 ml 1220 ml Balance 1080 ml 1220 ml Exam GENERAL: This is an obese female lying in bed in mild to moderate respiratory distress with oxygen via nasal cannula on. HEENT: Head normocephalic and atraumatic. Eyes: Anicteric sclerae. Conjunctivae clear. ENT: Nasal septum is midline. Oral mucosa is dry. NECK: Supple. No JVD noticed. RESPIRATORY: Bilaterally diminished breath sounds. Use of accessory muscles of respiration. CARDIAC: Regular rate and rhythm. Sinus tachycardia. ABDOMEN: Distended. Ascites. Diffuse tenderness. GENITOURINARY: Deferred. EXTREMITIES: No cyanosis, no clubbing, no edema. Peripheral pulses palpable. NEUROLOGIC: The patient is awake, alert and oriented. Cranial nerves are grossly intact. Results Result Diagram: 06/13/16 0700 06/13/16 0700 Results 24 hrs Laboratory Tests Test 06/13/16 07:00 Anion Gap 12 Basophils # 0.0 Basophils % 0.2 Blood Morphology Comment Blood Urea Nitrogen 10 Calcium Level 8.5 Carbon Dioxide Level 29 Chloride Level 98 Creatinine 0.45 Eosinophils # 0.0 Eosinophils % 0.2 Glucose Level 89 Hematocrit 33.2 L Hemoglobin 11.0 L Lymphocytes # 1.3 Lymphocytes % 11.3 L Magnesium Level 1.6 L Mean Corpuscular Hemoglobin 26.4 L Mean Corpuscular Hemoglobin Concent 33.2 Mean Corpuscular Volume 79.6 L Mean Platelet Volume 7.0 L Monocytes # 1.1 H Monocytes % 9.0 Neutrophils # 9.2 H Neutrophils % 79.3 H Nucleated Red Blood Cells # 0.0 Nucleated Red Blood Cells % 0.0 Phosphorus Level 3.6 Platelet Count 593 #H Potassium Level 4.1 Red Blood Count 4.17 L Red Cell Distribution Width 21.5 H Sodium Level 135 White Blood Count 11.6 #H Medications Medications Current Medications Ondansetron HCl (Zofran Inj) 4 mg Q6H PRN IV NAUSEA AND/OR VOMITING Last administered on 06/13/16 06:12; Admin Dose 4 MG; Start 06/10/16 at 07:30 Acetaminophen (Tylenol Tab) 650 mg Q6H PRN PO PAIN LEVEL 1-3 OR FEVER; Start at 07:30 Famotidine (Pepcid Iv) 20 mg Q12 IV Last administered on 06/13/16 08:48; Admin Dose 20 MG; Start 06/10/16 at 09:00 Docusate Sodium (Colace) 100 mg Q12H PRN PO CONSTIPATION; Start 06/10/16 at 07: 30 Lorazepam (Ativan) 0.5 mg Q8 PRN PO AGITATION/ANXIETY Last administered on 08:47; Admin Dose 0.5 MG; Start 06/10/16 at 07:30 Metoclopramide HCl (Reglan) 5 mg TID PO Last administered on 06/13/16 08:48; Admin Dose 5 MG; Start 06/10/16 at 09:00 Polyethylene Glycol (Miralax) 8.5 gm DAILY PRN PO CONSTIPATION; Start 06/10/16 at 07:30 Enoxaparin Sodium (Lovenox) 100 mg Q12 SC Last administered on 06/13/16 08:51; Admin Dose 100 MG; Start 06/10/16 at 09:00 Ferrous Sulfate (Ferrous Sulfate (Ec)) 325 mg BID PO Last administered on 08:48; Admin Dose 325 MG; Start 06/10/16 at 21:00 Furosemide 20 mg 20 mg DAILY@06 PO Last administered on 06/13/16 05:39; Admin Dose 20 MG; Start 06/11/16 at 06:00 Potassium Chloride/Dextrose/ Sod Cl (D5-1/2ns + KCl 20 Meq) 1,000 ml @ 60 mls/ hr [id number] IV Last administered on 06/12/16 16:35; Admin Dose 60 MLS/HR; Start 06/11/16 at 16:00 Hydromorphone HCl 1 MG/HR CONTINUOUS RATE ... Q4PCA IV Last administered on 06/13 05:29; Admin Dose 6 MG; Start 06/12/16 at 21:05 Magnesium Sulfate (Magnesium Sulfate 2 Gm/50 ml) 50 ml @ 25 mls/hr ONCE IVPB ; Start 06/13/16 at 12:00; Stop 06/13/16 at 13:59 NAYELY LINTON NP Jun 13, 2016 12:05
[2016-06-13] MEDS: D5W-0.45 NACL + KCL 20 MEQ 1,000 ML IV SCH (12:07)
[2016-06-13] MEDS ORDERED: METHADONE (1 MG/ML 5 ML PO UD SYG) PO SCH (13:00)
--- NOTE | 2016-06-13 13:19 | CONS ---
Date/Time of Note Date/Time of Note DATE: 06/13/16 TIME: 13:13 Assessment/Plan Assessment/Plan Additional Assessment/Plan Sinus tachycardia Pulmonary emboli Stomach cancer with metastases DVT Preserved ejection fraction Pleural effusion and abdominal ascites -Patient with mild congestion seen on chest x-ray. Currently getting diuretics. Repeat echocardiogram has been ordered secondary to recent pulmonary emboli. On review of telemetry, episodes of tachycardia are sinus. Would obtain ECG since there is not one in the chart. TSH checked in April was normal. Magnesium level is low, supplementation has been ordered. Patient is complaining of abdominal pain and is on medications. Sinus tachycardia is likely multifactorial including pulmonary emboli, pain, shortness of breath. Would continue on telemetry monitoring at the current time. Consultation Date/Type/Reason Admit Date/Time Jun 10, 2016 at 01:43 Type of Consultation: cv Reason for Consultation Tachycardia Hx of Present Illness This is a 36-year-old female with unfortunate has stomach cancer with metastases who presented with shortness of breath and found to have pulmonary emboli and lower extremity DVT. Patient has been started on anticoagulation. Patient continues to have episodes of shortness of breath. She denies any chest pain. She does complain of abdominal pain which worsened throughout the day and at times is better. She denies any dizziness or lightheadedness. She does get occasional palpitations. Cardiology consultation was requested secondary to tachycardia. 12 point review of systems was performed with all pertinent positives and negatives mentioned above and all else is negative Past Medical History Stomach cancer Hypertension Family History Significant Family History: no pertinent family hx Social History Smoking Status: Never smoker Exam/Review of Systems Vital Signs Vitals Vital Signs Date Time Temp Pulse Resp B/P Pulse Ox O2 Delivery O2 Flow Rate FiO2 06/13/16 12:26 98.1 131 20 146/99 100 06/13/16 01:31 3.0 06/12/16 20:00 Nasal Cannula 06/10/16 04:00 30 Intake and Output 06/12/16 06/12/16 06/13/16 15:00 23:00 07:00 Intake Total 1080 ml 1220 ml Balance 1080 ml 1220 ml Exam No apparent distress Constitutional: alert, obese, oriented Head: normocephalic Neck: supple Respiratory: other (course breath sounds bilaterally, no wheezing) Cardiovascular: other (S1-S2 heard), regular rate and rhythm (tachycardic) Gastrointestinal: bowel sounds, other (no guarding), soft, tender (with palpation) Extremities: edema (trace) Results Result Diagram: 06/13/16 0700 06/13/16 0700 Results 24 hrs Laboratory Tests Test 06/13/16 07:00 Anion Gap 12 Basophils # 0.0 Basophils % 0.2 Blood Morphology Comment Blood Urea Nitrogen 10 Calcium Level 8.5 Carbon Dioxide Level 29 Chloride Level 98 Creatinine 0.45 Eosinophils # 0.0 Eosinophils % 0.2 Glucose Level 89 Hematocrit 33.2 L Hemoglobin 11.0 L Lymphocytes # 1.3 Lymphocytes % 11.3 L Magnesium Level 1.6 L Mean Corpuscular Hemoglobin 26.4 L Mean Corpuscular Hemoglobin Concent 33.2 Mean Corpuscular Volume 79.6 L Mean Platelet Volume 7.0 L Monocytes # 1.1 H Monocytes % 9.0 Neutrophils # 9.2 H Neutrophils % 79.3 H Nucleated Red Blood Cells # 0.0 Nucleated Red Blood Cells % 0.0 Phosphorus Level 3.6 Platelet Count 593 #H Potassium Level 4.1 Red Blood Count 4.17 L Red Cell Distribution Width 21.5 H Sodium Level 135 White Blood Count 11.6 #H Medications Medications Current Medications Ondansetron HCl (Zofran Inj) 4 mg Q6H PRN IV NAUSEA AND/OR VOMITING Last administered on 06/13/16 06:12; Admin Dose 4 MG; Start 06/10/16 at 07:30 Acetaminophen (Tylenol Tab) 650 mg Q6H PRN PO PAIN LEVEL 1-3 OR FEVER; Start at 07:30 Famotidine (Pepcid Iv) 20 mg Q12 IV Last administered on 06/13/16 08:48; Admin Dose 20 MG; Start 06/10/16 at 09:00 Docusate Sodium (Colace) 100 mg Q12H PRN PO CONSTIPATION; Start 06/10/16 at 07: 30 Lorazepam (Ativan) 0.5 mg Q8 PRN PO AGITATION/ANXIETY Last administered on 08:47; Admin Dose 0.5 MG; Start 06/10/16 at 07:30 Metoclopramide HCl (Reglan) 5 mg TID PO Last administered on 06/13/16 08:48; Admin Dose 5 MG; Start 06/10/16 at 09:00 Polyethylene Glycol (Miralax) 8.5 gm DAILY PRN PO CONSTIPATION; Start 06/10/16 at 07:30 Enoxaparin Sodium (Lovenox) 100 mg Q12 SC Last administered on 06/13/16 08:51; Admin Dose 100 MG; Start 06/10/16 at 09:00 Ferrous Sulfate (Ferrous Sulfate (Ec)) 325 mg BID PO Last administered on 08:48; Admin Dose 325 MG; Start 06/10/16 at 21:00 Furosemide 20 mg 20 mg DAILY@06 PO Last administered on 06/13/16 05:39; Admin Dose 20 MG; Start 06/11/16 at 06:00 Potassium Chloride/Dextrose/ Sod Cl (D5-1/2ns + KCl 20 Meq) 1,000 ml @ 60 mls/ hr [id number] IV Last administered on 06/13/16 12:07; Admin Dose 60 MLS/HR; Start 06/11/16 at 16:00 Hydromorphone HCl 1 MG/HR CONTINUOUS RATE 1... Q4PCA IV Last administered on 11:51; Admin Dose 6 MG; Start 06/12/16 at 21:05 Magnesium Sulfate (Magnesium Sulfate 2 Gm/50 ml) 50 ml @ 25 mls/hr ONCE IVPB ; Start 06/13/16 at 12:00; Stop 06/13/16 at 13:59 Methadone HCl (Methadone Liq (Ped)) 2 mg Q6 PO ; Start 06/13/16 at 14:00 Procedures Procedures Telemetry reviewed with sinus tachycardia ranging from 100 eats per minute up to 140s José Baez DO Jun 13, 2016 13:19
--- NOTE | 2016-06-13 14:03 | PN ---
DATE: 06/13/2016 I have had a conversation with nursing staff available and just talked to this patient concerning o ngoing level of care and her code status. She made it very clear she does not want to live on artif icial life support and she is competent enough to make a decision on her own. I told her we would d iscuss hospice care soon; however, at this time, she is going down to have a paracentesis done. I b lisa because she is being treated for bilateral pulmonary emboli at this time, that placement of a PleurX catheter may have significant complications. Therefore, I would suggest not placing one. Karoline coronado will follow her very closely. I have adjusted her CHEMICAL RECLAMATION EQUIPMENT OPERATOR today, discussed with nursing staff in [facility]. She is receiving excellent care by nursing staff. Dictated By: EPHRAIM PHELPS MD, LP/CAROL Conf#: [id number] DID#: [id number]
--- NOTE | 2016-06-13 14:10 | CONS ---
DATE OF ADMISSION: 06/10/2016 DATE OF CONSULTATION: 06/13/2016 PALLIATIVE CARE CONSULTATION HISTORY OF PRESENT ILLNESS: This is a very pleasant 36-year-old female who has a history of stomach cancer with tense abdominal ascites who presented with pain and increasing shortness of breath to [facility] emergency room. Her primary care team is at [facility]. The last time she states she saw them was approximately 1 month prior to this hospitalization. She is unclear as to whether or not they had anything further to offer her. When I asked her these questions, she says "nothing , nothing." She says she was quickly in and out of the clinic and there was no other talk of ongoin g care or protocol drugs. Currently she is extremely uncomfortable, complaining of generalized abdo yadira discomfort without radiations into her flanks but radiations into the lumbar spine. She state s that she is nauseated. She is having periods of vomiting associated with it. She rates her pain 10/10 and states that medications she has taken at home for pain management have been ineffective. MEDICATIONS: Please refer to reconciliation sheet. ALLERGIES: NO KNOWN DRUG ALLERGIES. MAJOR MEDICAL PROBLEMS IN THE PAST: All pertinent for history of present illness only. SOCIAL HISTORY: Nonsmoker, nondrinker. FAMILY HISTORY: Noncontributory. REVIEW OF SYSTEMS: Cannot obtain; the patient is too uncomfortable at this time. PHYSICAL EXAMINATION: GENERAL: Shows an uncomfortable appearing female, diaphoretic, and holding her abdomen. HEENT: She is otherwise normocephalic and atraumatic, anicteric, and acyanotic on examination. VITAL SIGNS: Blood pressure 146/99, pulse 131 and regular, respirations are 20, pulse oximetry 100% , temperature 98.1 degrees. HEENT: She is normocephalic and atraumatic. Anicteric, acyanotic. CHEST: Shows bilateral distant breath sounds throughout both lung daniels. No rales, rhonchi, wheez ing, or rubs. ABDOMEN: Distant bowel signs grossly distended all 4 quadrants with discomfort in all 4 quadrants b ut without gross rebound or peritoneal signs. LABORATORIES: Pertinent for this consultation, white blood cell count of 11.6, hemoglobin 11.0, hem atocrit of 33.2, MCV of 79.6, platelet count 593,000. Chemistries: Serum sodium 135, potassium 4.1 , chloride 98, bicarbonate 29, BUN 10, creatinine 0.45, blood sugar of 89. INR 47.8. ASSESSMENT AND PLAN: This is an unfortunate female with what appears to be very advanced stomach ca ncer with malignant ascites. She has had 1 paracentesis. She has done well with that and had some alleviation of her shortness of breath, but she is obviously uncomfortable at this time and having d iffuse abdominal discomfort. My suggestion is to treat her pain at this time. It may also help wit h her shortness of breath. I will discontinue current medications and start her off on a CORE LAYING MACHINE OPERATOR Dilaud id. The morphine she was taking seems to have been ineffective but was a good idea to begin as a fi rst line drug. Program her machine for continuous as well as breakthrough pain dose also. At this time, also I have ordered methadone with anticipation she will probably go home with methadone as th e primary pain control medications. Other issues such as pulmonary embolus, I think we should try a nd obtain medical records from [facility] also. Dictated By: EPHRAIM PHELPS MD LP/NTS Conf#: [id number] DID#: [id number]
[2016-06-13] MEDS ORDERED: MAGNESIUM SULFATE 3 GM in SOD CHLORIDE 0.9% 100 ML IVPB SCH (14:30)
[2016-06-13] MEDS: METHADONE (1 MG/1 ML PO SYG) PO SCH ×2 (15:24→18:40)
--- NOTE | 2016-06-13 15:51 | PN ---
Date/Time of Note Date/Time of Note DATE: 06/13/16 TIME: 15:49 Assessment/Plan Lines/Catheters IV Catheter Type (from [facility]): Peripheral IV Jackson in Place (from [facility]): No Assessment/Plan Chief Complaint/Hosp Course -Left lower extremity deep vein thrombosis and pulmonary embolism in bilateral pulmonary arteries: It seems that the patient's metastatic stomach cancer is the likely the cause of her being hypercoagulable and developing deep vein thrombosis and pulmonary embolism. Despite her being on prophylactic anticoagulation, she has developed pulmonary embolism. -Will plan for inferior vena cava filter placement, in light of these findings. However, the patient is not a candidate for endovascular interventions, such as thrombolysis or thrombectomy, as the patient's prognosis seems to be poor, as she no longer wants to continue with chemotherapy. -Would recommend to obtain a possible prognosis if the patient is planning to pursue any treatments for stomach cancer in which we can reconsider our endovascular interventions. -Optimize vascular status. -Continue with her anticoagulation for now. -Will plan to place IVC filter in the coming days. -Elevate left lower extremity. -Discussed findings, plan, and management with the patient and family at the bedside with a certified medical stenographer and they understand. -Thank you for allowing us to partake in the care of your patient. Please call with any questions. Problems: Subjective 24 Hr Interval Summary no new vascular events overnight, requiring oxygen on NC Exam/Review of Systems Vital Signs Vitals Vital Signs Date Time Temp Pulse Resp B/P Pulse Ox O2 Delivery O2 Flow Rate FiO2 06/13/16 15:31 97.7 144 20 133/76 96 06/13/16 01:31 3.0 06/12/16 20:00 Nasal Cannula 06/10/16 04:00 30 Intake and Output 06/12/16 06/12/16 06/13/16 15:00 23:00 07:00 Intake Total 1080 ml 1220 ml Balance 1080 ml 1220 ml Exam Free Text/Dictation GENERAL: Alert and oriented x3. PULMONARY: Coarse breath sounds bilaterally, crackles at the bases. CARDIOVASCULAR: S1, S2 present. ABDOMEN: Soft, nontender, nondistended. Bowel sounds positive. Truncal obesity. EXTREMITIES: Palpable femoral pulses, palpable pedal pulses. Motor, sensory intact. Capillary refill 2 to 3 seconds. Edema 1 of the left lower extremity. Results Result Diagram: 06/13/1600 06/13/1600 RACHID CRUZ MD Jun 13, 2016 15:51
--- NOTE | 2016-06-13 16:32 | CONS ---
Date/Time of Note Date/Time of Note DATE: 06/13/16 TIME: 16:30 Consult Date/Type/Reason Admit Date/Time Jun 10, 2016 at 01:43 Type of Consultation: Pulm Subjective Still has shortness of breath on exertion. Objective Vital Signs Date Time Temp Pulse Resp B/P Pulse Ox O2 Delivery O2 Flow Rate FiO2 06/13/16 15:31 97.7 144 20 133/76 96 06/13/16 01:31 3.0 06/12/16 20:00 Nasal Cannula 06/10/16 04:00 30 Intake and Output 06/12/16 06/12/16 06/13/16 15:00 23:00 07:00 Intake Total 1080 ml 1220 ml Balance 1080 ml 1220 ml PHYSICAL EXAMINATION: GENERAL: Well-nourished, well-developed lady, appears comfortable at rest, no acute distress. VITAL SIGNS: Currently afebrile, pulse is 118, blood pressure 110/73, O2 saturation 96% on 4L nc NECK: Supple. No JVD or lymphadenopathy. CARDIAC: S1, S2, no added sounds or murmurs. CHEST: Diminished air entry bilaterally. ABDOMEN: Soft, nontender. No guarding or rebound. EXTREMITIES: No cyanosis, clubbing, edema +1 NEUROLOGIC: Grossly intact. No focal deficits. Results/Medications Result Diagram: 06/13/16 0700 06/13/16 0700 Results 24 hrs Laboratory Tests Test 06/13/16 07:00 Anion Gap 12 Basophils # 0.0 Basophils % 0.2 Blood Morphology Comment Blood Urea Nitrogen 10 Calcium Level 8.5 Carbon Dioxide Level 29 Chloride Level 98 Creatinine 0.45 Eosinophils # 0.0 Eosinophils % 0.2 Glucose Level 89 Hematocrit 33.2 L Hemoglobin 11.0 L Lymphocytes # 1.3 Lymphocytes % 11.3 L Magnesium Level 1.6 L Mean Corpuscular Hemoglobin 26.4 L Mean Corpuscular Hemoglobin Concent 33.2 Mean Corpuscular Volume 79.6 L Mean Platelet Volume 7.0 L Monocytes # 1.1 H Monocytes % 9.0 Neutrophils # 9.2 H Neutrophils % 79.3 H Nucleated Red Blood Cells # 0.0 Nucleated Red Blood Cells % 0.0 Phosphorus Level 3.6 Platelet Count 593 #H Potassium Level 4.1 Red Blood Count 4.17 L Red Cell Distribution Width 21.5 H Sodium Level 135 White Blood Count 11.6 #H Medications Current Medications Ondansetron HCl (Zofran Inj) 4 mg Q6H PRN IV NAUSEA AND/OR VOMITING Last administered on 06/13/16 06:12; Admin Dose 4 MG; Start 06/10/16 at 07:30 Acetaminophen (Tylenol Tab) 650 mg Q6H PRN PO PAIN LEVEL 1-3 OR FEVER; Start at 07:30 Famotidine (Pepcid Iv) 20 mg Q12 IV Last administered on 06/13/16 08:48; Admin Dose 20 MG; Start 06/10/16 at 09:00 Docusate Sodium (Colace) 100 mg Q12H PRN PO CONSTIPATION; Start 06/10/16 at 07: 30 Lorazepam (Ativan) 0.5 mg Q8 PRN PO AGITATION/ANXIETY Last administered on 08:47; Admin Dose 0.5 MG; Start 06/10/16 at 07:30 Metoclopramide HCl (Reglan) 5 mg TID PO Last administered on 06/13/16 13:45; Admin Dose 5 MG; Start 06/10/16 at 09:00 Polyethylene Glycol (Miralax) 8.5 gm DAILY PRN PO CONSTIPATION; Start 06/10/16 at 07:30 Enoxaparin Sodium (Lovenox) 100 mg Q12 SC Last administered on 06/13/16 08:51; Admin Dose 100 MG; Start 06/10/16 at 09:00 Ferrous Sulfate (Ferrous Sulfate (Ec)) 325 mg BID PO Last administered on 08:48; Admin Dose 325 MG; Start 06/10/16 at 21:00 Furosemide 20 mg 20 mg DAILY@06 PO Last administered on 06/13/16 05:39; Admin Dose 20 MG; Start 06/11/16 at 06:00 Potassium Chloride/Dextrose/ Sod Cl (D5-1/2ns + KCl 20 Meq) 1,000 ml @ 60 mls/ hr [id number] IV Last administered on 06/13/16 12:07; Admin Dose 60 MLS/HR; Start 06/11/16 at 16:00 Hydromorphone HCl (Dilaudid EXECUTIVE ASST) 1 MG/HR CONTINUOUS RATE 1... Q4PCA IV Last administered on 06/13/16 15:19; Admin Dose 6 MG; Start 06/12/16 at 21:05 Methadone HCl 2 mg 2 mg Q6 PO Last administered on 06/13/16 15:24; Admin Dose 2 MG; Start 06/13/16 at 14:00 Magnesium Sulfate/ Sodium Chloride (Magnesium Sulfate/NS) 106 ml @ 35.333 mls/ hr ONCE IVPB Last administered on 06/13/16 15:24; Admin Dose 35.333 MLS/HR; Start 06/13/16 at 14:30; Stop 06/13/16 at 17:29 Assessment/Plan Chief Complaint/Hosp Course Pending IVC filter ASSESSMENT: 1. History of gastric cancer. 2. New pulmonary emboli.Hypercoagulable state 3. History of pleural effusion. 4. Ascites, likely secondary to underlying malignancy. The patient will require: 1. Continue anticoagulation. I will switch to Lovenox. 2. Deep vein thrombosis. Pending IVC filter 3. Continue aspiration precautions. 4. Consider hematology/oncology recommendations. 5. Deep venous thrombosis and gastrointestinal prophylaxis. Problems: ERROL TUCKER MD, [facility] Jun 13, 2016 16:32
--- NOTE | 2016-06-13 17:15 | RADRPT ---
PROCEDURE: Ultrasound four quadrants CLINICAL INDICATION: Abdominal distension. Evaluate for ascites. TECHNIQUE: Sonographic evaluation of the four quadrants of the abdomen was performed. Huffman-scale imaging was utilized. Images were reviewed on a high-resolution PACS workstation. COMPARISON: Ultrasound-guided paracentesis 06/11/2016. FINDINGS: Minimal to mild ascites is seen. IMPRESSION: 1. Minimal to mild ascites. RPTAT: QQ .Miko Mtz MD, Date Time Electronically viewed and signed by .Miko Mtz MD, MD on 06/13/2016 17:15 .N/
--- NOTE | 2016-06-13 21:41 | RADRPT ---
Echocardiogram Report Patient Name: ROSIE REYES Gender: Female Date: 1980 Study Date: 13-Jun-2016 Traffic Sergeant: Awa Harris [facility] Location: 5560 Ref. Physician: NAYELY LINTON Quality: Technically Difficult Study Procedures: Transthoracic echocardiogram examination. Indications: Pericardial Effusion. Findings Left Ventricle: Lower limits of normal left ventricular systolic function. The left ventricular ejection fraction is visually estimated at 50 %. Pericardium: Trivial to small effusion. IVC: Normal inferior vena cava appearance and respiratory collapse. Conclusions Lower limits of normal left ventricular systolic function. The left ventricular ejection fraction is visually estimated at 50 %. Trivial to small effusion. Electronically Signed By: José Baez 13-Jun-2016 21:41:01 -0800 Patient Name: ROSIE REYES Study Date: 13-Jun-2016 [id number]
[2016-06-14] VITALS (13 sets, daily range): BP systolic 112–142; BP diastolic 77–105; PULSE 123–151; RESP 16–20
[2016-06-14] MEDS: METHADONE (1 MG/1 ML PO SYG) PO SCH ×4 (00:09→17:39)
[2016-06-14] MEDS: HYDROmorphONE 0.2 MG/ML PCA IV SCH ×4 (05:36→19:38)
[2016-06-14] MEDS: FUROSEMIDE 20 MG TAB PO SCH (05:37)
[2016-06-14 08:06] LABS: BASOPHILS % 0.2 % (0.0-2.0); EOSINOPHILS % 0.3 % (0.0-7.0); HEMATOCRIT 34.5 % (37.0-47.0); HEMOGLOBIN 11.4 g/dl (12.0-16.0); LYMPHOCYTES # 1.7 10^3/ul (0.8-2.9); LYMPHOCYTES % 17.4 % (15.0-51.0); MEAN CORPUSCULAR HEMOGLOBIN 26.3 pg (29.0-33.0); MEAN CORPUSCULAR VOLUME 79.7 fl (82.0-101.0); MEAN PLATELET VOLUME 7.1 fl (7.4-10.4); MONOCYTE # 0.9 10^3/ul (0.3-0.9); MONOCYTES % 9.4 % (0.0-11.0); NEUTROPHILS % 72.7 % (39.0-77.0); RED BLOOD COUNT 4.33 10^6/ul (4.20-5.40); RED CELL DISTRIBUTION WIDTH 21.8 % (11.5-14.5); UNCORRECTED WBC 9.7 10^3/ul (4.8-10.8); WHITE BLOOD COUNT 9.7 10^3/ul (4.8-10.8)
[2016-06-14 08:09] LABS: POTASSIUM 4.1 mmol/L (3.5-5.1)
[2016-06-14 08:11] LABS: CREATININE 0.52 mg/dl (0.44-1.00)
[2016-06-14 08:12] LABS: CALCIUM 8.3 mg/dl (8.4-10.2); CONDITION 1; LH ANALYZER COMMENTS 1; PLATELET COUNT 634 10^3/UL (140-440)
[2016-06-14 08:19] LABS: MAGNESIUM 1.8 mg/dl (1.7-2.5); PHOSPHORUS 4.1 mg/dl (2.5-4.9)
[2016-06-14] MEDS: FAMOTIDINE 20 MG INJ IV SCH ×2 (09:39→21:37)
[2016-06-14] MEDS: METOCLOPRAMIDE 5 MG TAB PO SCH ×2 (09:39→15:21)
[2016-06-14] MEDS: FERROUS SULFATE (EC) 325 MG TAB PO SCH ×2 (09:39→21:37)
[2016-06-14] MEDS: ENOXAPARIN 100 MG/ML SYG SC SCH ×2 (09:52→21:45)
--- NOTE | 2016-06-14 11:48 | RADRPT ---
Vent Rate: 129 bpm RR Interval: 0 msec VA Interval: 140 msec QRS Duration: 88 msec QT Interval: 302 msec QTC Interval: 442 msec P-R-T [place]: 60 - 72 - 49 degrees Sinus tachycardia Otherwise normal ECG Electronically Signed By: Stephen Doherty [id number]
--- NOTE | 2016-06-14 12:04 | PN ---
Date/Time of Note Date/Time of Note DATE: 06/14/16 TIME: 11:59 Assessment/Plan VTE Prophylaxis VTE Prophylaxis Intervention: LMWH Lines/Catheters IV Catheter Type (from [facility]): Peripheral IV Urinary Cath still in place: No Assessment/Plan Chief Complaint/Hosp Course 1. Pulmonary embolism. Continue therapeutic anticoagulation. Continue supplemental oxygen. Being followed by pulmonology. 2. Left distal superficial femoral vein deep venous thrombosis. Continue treatment as per #1. Vascular surgery on case for placement of an inferior vena cava filter since the patient has hypercoagulability secondary to underlying malignancy. 3. Abdominal pain with moderate ascites, most probably malignant ascites. Status post paracentesis. 4. Stomach cancer with malignant ascites. Palliative care following. The patient is currently a DNR. 5. Microcytic hypochromic anemia. Underlying deficiency. Continue iron supplements. 6. Bilateral pleural effusions. Continue diuresis. 7. Sinus tachycardia. Etiology unclear. Cardiology following. 8. Fluid, electrolytes and nutrition. Regular diet as tolerated. 9. Deep venous thrombosis prophylaxis. Therapeutic anticoagulation. 10. Gastrointestinal prophylaxis. H2 receptor blockers. 11. Plan. Continue therapeutic anticoagulation. Will await IVC filter placement. Will switch the patient to oral anticoagulation once IVC filter is placed. Case discussed with . Problems: Subjective 24 Hr Interval Summary Free Text/Dictation "Feeling better." Remains tachycardic, but better. Exam/Review of Systems Vital Signs Vitals Vital Signs Date Time Temp Pulse Resp B/P Pulse Ox O2 Delivery O2 Flow Rate FiO2 06/14/16 11:48 98.7 125 20 124/85 98 06/14/16 00:14 3.0 06/13/16 20:30 Nasal Cannula Intake and Output 06/13/16 06/13/16 06/14/16 15:00 23:00 07:00 Intake Total 1000 ml 900 ml Balance 1000 ml 900 ml Exam GENERAL: This is an obese female lying in bed in mild to moderate respiratory distress with oxygen via nasal cannula on. HEENT: Head normocephalic and atraumatic. Eyes: Anicteric sclerae. Conjunctivae clear. ENT: Nasal septum is midline. Oral mucosa is dry. NECK: Supple. No JVD noticed. RESPIRATORY: Bilaterally diminished breath sounds. Use of accessory muscles of respiration. CARDIAC: Regular rate and rhythm. Sinus tachycardia. ABDOMEN: Distended. Ascites. Diffuse tenderness. GENITOURINARY: Deferred. EXTREMITIES: No cyanosis, no clubbing, no edema. Peripheral pulses palpable. NEUROLOGIC: The patient is awake, alert and oriented. Cranial nerves are grossly intact. Results Result Diagram: 06/14/16 0654 06/14/16 0654 Results 24 hrs Laboratory Tests Test 06/14/16 06:54 Anion Gap 13 Basophils # 0.0 Basophils % 0.2 Blood Morphology Comment Blood Urea Nitrogen 11 Calcium Level 8.3 L Carbon Dioxide Level 30 Chloride Level 93 L Creatinine 0.52 Eosinophils # 0.0 Eosinophils % 0.3 Glucose Level 92 Hematocrit 34.5 L Hemoglobin 11.4 L Lymphocytes # 1.7 Lymphocytes % 17.4 Magnesium Level 1.8 Mean Corpuscular Hemoglobin 26.3 L Mean Corpuscular Hemoglobin Concent 33.0 Mean Corpuscular Volume 79.7 L Mean Platelet Volume 7.1 L Monocytes # 0.9 Monocytes % 9.4 Neutrophils # 7.0 Neutrophils % 72.7 Nucleated Red Blood Cells # 0.0 Nucleated Red Blood Cells % 0.0 Phosphorus Level 4.1 Platelet Count 634 H Potassium Level 4.1 Red Blood Count 4.33 Red Cell Distribution Width 21.8 H Sodium Level 132 L White Blood Count 9.7 Medications Medications Current Medications Ondansetron HCl (Zofran Inj) 4 mg Q6H PRN IV NAUSEA AND/OR VOMITING Last administered on 06/13/16 18:47; Admin Dose 4 MG; Start 06/10/16 at 07:30 Acetaminophen (Tylenol Tab) 650 mg Q6H PRN PO PAIN LEVEL 1-3 OR FEVER; Start at 07:30 Famotidine (Pepcid Iv) 20 mg Q12 IV Last administered on 06/14/16 09:39; Admin Dose 20 MG; Start 06/10/16 at 09:00 Docusate Sodium (Colace) 100 mg Q12H PRN PO CONSTIPATION; Start 06/10/16 at 07: 30 Lorazepam (Ativan) 0.5 mg Q8 PRN PO AGITATION/ANXIETY Last administered on 08:47; Admin Dose 0.5 MG; Start 06/10/16 at 07:30 Metoclopramide HCl (Reglan) 5 mg TID PO Last administered on 06/14/16 09:39; Admin Dose 5 MG; Start 06/10/16 at 09:00 Polyethylene Glycol (Miralax) 8.5 gm DAILY PRN PO CONSTIPATION; Start 06/10/16 at 07:30 Enoxaparin Sodium (Lovenox) 100 mg Q12 SC Last administered on 06/14/16 09:52; Admin Dose 100 MG; Start 06/10/16 at 09:00 Ferrous Sulfate (Ferrous Sulfate (Ec)) 325 mg BID PO Last administered on 09:39; Admin Dose 325 MG; Start 06/10/16 at 21:00 Furosemide 20 mg 20 mg DAILY@06 PO Last administered on 06/14/16 05:37; Admin Dose 20 MG; Start 06/11/16 at 06:00 Potassium Chloride/Dextrose/ Sod Cl (D5-1/2ns + KCl 20 Meq) 1,000 ml @ 60 mls/ hr [id number] IV Last administered on 06/13/16 12:07; Admin Dose 60 MLS/HR; Start 06/11/16 at 16:00 Hydromorphone HCl (Dilaudid DIRECTOR FINANCIAL SYSTEMS) 1 MG/HR CONTINUOUS RATE 1... Q4PCA IV Last administered on 06/14/16 05:36; Admin Dose 6 MG; Start 06/12/16 at 21:05 Methadone HCl (Methadone Liq (Ped)) 2 mg Q6 PO Last administered on 06/14/16 05 :36; Admin Dose 2 MG; Start 06/13/16 at 14:00 NAYELY LINTON NP Jun 14, 2016 12:04
--- NOTE | 2016-06-14 13:05 | CONS ---
Date/Time of Note Date/Time of Note DATE: 06/14/16 TIME: 13:04 Consult Date/Type/Reason Admit Date/Time Jun 10, 2016 at 01:43 Type of Consultation: Pulm Subjective Still has some shortness breath on exertion Currently he remains hemodynamic stable Objective Vital Signs Date Time Temp Pulse Resp B/P Pulse Ox O2 Delivery O2 Flow Rate FiO2 06/14/16 11:48 98.7 125 20 124/85 98 06/14/16 00:14 3.0 06/13/16 20:30 Nasal Cannula Intake and Output 06/13/16 06/13/16 06/14/16 15:00 23:00 07:00 Intake Total 1000 ml 900 ml Balance 1000 ml 900 ml PHYSICAL EXAMINATION: GENERAL: Well-nourished, well-developed lady, appears comfortable at rest, no acute distress. VITAL SIGNS: As above NECK: Supple. No JVD or lymphadenopathy. CARDIAC: S1, S2, no added sounds or murmurs. CHEST: Diminished air entry bilaterally. ABDOMEN: Soft, nontender. No guarding or rebound. EXTREMITIES: No cyanosis, clubbing, edema +1 NEUROLOGIC: Grossly intact. No focal deficits. Results/Medications Result Diagram: 06/14/16 0654 06/14/16 0654 Results 24 hrs Laboratory Tests Test 06/14/16 06:54 Anion Gap 13 Basophils # 0.0 Basophils % 0.2 Blood Morphology Comment Blood Urea Nitrogen 11 Calcium Level 8.3 L Carbon Dioxide Level 30 Chloride Level 93 L Creatinine 0.52 Eosinophils # 0.0 Eosinophils % 0.3 Glucose Level 92 Hematocrit 34.5 L Hemoglobin 11.4 L Lymphocytes # 1.7 Lymphocytes % 17.4 Magnesium Level 1.8 Mean Corpuscular Hemoglobin 26.3 L Mean Corpuscular Hemoglobin Concent 33.0 Mean Corpuscular Volume 79.7 L Mean Platelet Volume 7.1 L Monocytes # 0.9 Monocytes % 9.4 Neutrophils # 7.0 Neutrophils % 72.7 Nucleated Red Blood Cells # 0.0 Nucleated Red Blood Cells % 0.0 Phosphorus Level 4.1 Platelet Count 634 H Potassium Level 4.1 Red Blood Count 4.33 Red Cell Distribution Width 21.8 H Sodium Level 132 L White Blood Count 9.7 Medications Current Medications Ondansetron HCl (Zofran Inj) 4 mg Q6H PRN IV NAUSEA AND/OR VOMITING Last administered on 06/13/16 18:47; Admin Dose 4 MG; Start 06/10/16 at 07:30 Acetaminophen (Tylenol Tab) 650 mg Q6H PRN PO PAIN LEVEL 1-3 OR FEVER; Start at 07:30 Famotidine (Pepcid Iv) 20 mg Q12 IV Last administered on 06/14/16 09:39; Admin Dose 20 MG; Start 06/10/16 at 09:00 Docusate Sodium (Colace) 100 mg Q12H PRN PO CONSTIPATION; Start 06/10/16 at 07: 30 Lorazepam (Ativan) 0.5 mg Q8 PRN PO AGITATION/ANXIETY Last administered on 08:47; Admin Dose 0.5 MG; Start 06/10/16 at 07:30 Metoclopramide HCl (Reglan) 5 mg TID PO Last administered on 06/14/16 09:39; Admin Dose 5 MG; Start 06/10/16 at 09:00 Polyethylene Glycol (Miralax) 8.5 gm DAILY PRN PO CONSTIPATION; Start 06/10/16 at 07:30 Enoxaparin Sodium (Lovenox) 100 mg Q12 SC Last administered on 06/14/16 09:52; Admin Dose 100 MG; Start 06/10/16 at 09:00 Ferrous Sulfate (Ferrous Sulfate (Ec)) 325 mg BID PO Last administered on 09:39; Admin Dose 325 MG; Start 06/10/16 at 21:00 Furosemide 20 mg 20 mg DAILY@06 PO Last administered on 06/14/16 05:37; Admin Dose 20 MG; Start 06/11/16 at 06:00 Potassium Chloride/Dextrose/ Sod Cl (D5-1/2ns + KCl 20 Meq) 1,000 ml @ 60 mls/ hr [id number] IV Last administered on 06/13/16 12:07; Admin Dose 60 MLS/HR; Start 06/11/16 at 16:00 Hydromorphone HCl (Dilaudid CANVAS GOODS SUPERVISOR) 1 MG/HR CONTINUOUS RATE 1... Q4PCA IV Last administered on 06/14/16 05:36; Admin Dose 6 MG; Start 06/12/16 at 21:05 Methadone HCl (Methadone Liq (Ped)) 2 mg Q6 PO Last administered on 06/14/16t 05 :36; Admin Dose 2 MG; Start 06/13/16 at 14:00 Assessment/Plan Chief Complaint/Hosp Course ASSESSMENT: 1. History of gastric cancer. 2. New pulmonary emboli.Hypercoagulable state 3. History of pleural effusion. 4. Ascites, likely secondary to underlying malignancy. 5. Hypoxemic respiratory failure secondary to pleural effusions and bibasilar atelectasis from alveolar hypoventilation The patient will require: 1. Continue anticoagulation. 2. Deep vein thrombosis. Pending IVC filter 3. Continue aspiration precautions. 4. Consider hematology/oncology recommendations. 5. Deep venous thrombosis and gastrointestinal prophylaxis. 6. Incentive spirometry Problems: ERROL TUCKER MD, [facility] Jun 14, 2016 13:05
--- NOTE | 2016-06-14 13:36 | PN ---
Date/Time of Note Date/Time of Note DATE: 06/14/16 TIME: 13:35 Assessment/Plan Lines/Catheters IV Catheter Type (from [facility]): Peripheral IV [facility] in Place (from [facility]): No Assessment/Plan Chief Complaint/Hosp Course -Left lower extremity deep vein thrombosis and pulmonary embolism in bilateral pulmonary arteries: It seems that the patient's metastatic stomach cancer is the likely the cause of her being hypercoagulable and developing deep vein thrombosis and pulmonary embolism. Despite her being on prophylactic anticoagulation, she has developed pulmonary embolism. -Will plan for inferior vena cava filter placement, in light of these findings. However, the patient is not a candidate for endovascular interventions, such as thrombolysis or thrombectomy, as the patient's prognosis seems to be poor, as she no longer wants to continue with chemotherapy. -Optimize vascular status. -Continue with her anticoagulation for now. -Will plan to place IVC filter in the coming days. -Elevate left lower extremity. -Discussed findings, plan, and management with the patient and family at the bedside with a certified full roll inspector and they understand. -Thank you for allowing us to partake in the care of your patient. Please call with any questions. Problems: Subjective 24 Hr Interval Summary no new vascular events overnight Exam/Review of Systems Vital Signs Vitals Vital Signs Date Time Temp Pulse Resp B/P Pulse Ox O2 Delivery O2 Flow Rate FiO2 06/14/16 11:48 98.7 125 20 124/85 98 06/14/16 00:14 3.0 06/13/16 20:30 Nasal Cannula Intake and Output 06/13/16 06/13/16 06/14/16 15:00 23:00 07:00 Intake Total 1000 ml 900 ml Balance 1000 ml 900 ml Exam Free Text/Dictation GENERAL: Alert and oriented x3. PULMONARY: Coarse breath sounds bilaterally, crackles at the bases. CARDIOVASCULAR: S1, S2 present. ABDOMEN: Soft, nontender, nondistended. Bowel sounds positive. Truncal obesity. EXTREMITIES: Palpable femoral pulses, palpable pedal pulses. Motor, sensory intact. Capillary refill 2 to 3 seconds. Edema 1 of the left lower extremity. Results Result Diagram: 06/14/16 0654 06/14/16 0654 RACHID CRUZ MD Jun 14, 2016 13:36
[2016-06-14] MEDS: D5W-0.45 NACL + KCL 20 MEQ 1,000 ML IV SCH (15:22)
[2016-06-14] MEDS ORDERED: MAGNESIUM SULFATE 3 GM in SOD CHLORIDE 0.9% 100 ML IVPB ONE (17:30)
--- NOTE | 2016-06-14 18:16 | CONS ---
Date/Time of Note Date/Time of Note DATE: 06/14/16 TIME: 18:14 Assessment/Plan Assessment/Plan Additional Assessment/Plan Tachycardia Pulmonary emboli Stomach cancer with metastases DVT Preserved ejection fraction Pleural effusion and abdominal ascites -Review of telemetry, with strips of what appears to be possibly atrial tachycardia versus atrial flutter. Would start Cardizem to slow down rate. Continue aggressive pain control and anticoagulation. Supplement magnesium to maintain above 2.0 and potassium above 4.0. Consultation Date/Type/Reason Admit Date/Time Jun 10, 2016 at 01:43 Initial Consult Date Type of Consultation: cv 24 HR Interval Summary Free Text/Dictation Patient complains of abdominal pain and intermittent palpitations. Shortness of breath is better Exam/Review of Systems Vital Signs Vitals Vital Signs Date Time Temp Pulse Resp B/P Pulse Ox O2 Delivery O2 Flow Rate FiO2 06/14/16 17:29 125 06/14/16 16:28 98.2 20 142/105 100 06/14/16 08:40 Nasal Cannula 6.0 Intake and Output 06/13/16 06/13/16 06/14/16 15:00 23:00 07:00 Intake Total 1000 ml 900 ml Balance 1000 ml 900 ml Exam No apparent distress Constitutional: alert, obese, oriented Head: normocephalic Neck: supple Respiratory: other (Coarse breath sounds bilaterally, no wheezing) Cardiovascular: other (S1-S2 heard), regular rate and rhythm (Tachycardic) Gastrointestinal: bowel sounds, other (No guarding), soft, tender Extremities: edema (Trace) Results Result Diagram: 06/14/16 0654 06/14/16 0654 Results 24 hrs Laboratory Tests Test 06/14/16 06:54 Anion Gap 13 Basophils # 0.0 Basophils % 0.2 Blood Morphology Comment Blood Urea Nitrogen 11 Calcium Level 8.3 L Carbon Dioxide Level 30 Chloride Level 93 L Creatinine 0.52 Eosinophils # 0.0 Eosinophils % 0.3 Glucose Level 92 Hematocrit 34.5 L Hemoglobin 11.4 L Lymphocytes # 1.7 Lymphocytes % 17.4 Magnesium Level 1.8 Mean Corpuscular Hemoglobin 26.3 L Mean Corpuscular Hemoglobin Concent 33.0 Mean Corpuscular Volume 79.7 L Mean Platelet Volume 7.1 L Monocytes # 0.9 Monocytes % 9.4 Neutrophils # 7.0 Neutrophils % 72.7 Nucleated Red Blood Cells # 0.0 Nucleated Red Blood Cells % 0.0 Phosphorus Level 4.1 Platelet Count 634 H Potassium Level 4.1 Red Blood Count 4.33 Red Cell Distribution Width 21.8 H Sodium Level 132 L White Blood Count 9.7 Medications Medications Current Medications Ondansetron HCl (Zofran Inj) 4 mg Q6H PRN IV NAUSEA AND/OR VOMITING Last administered on 06/13/16 18:47; Admin Dose 4 MG; Start 06/10/16 at 07:30 Acetaminophen (Tylenol Tab) 650 mg Q6H PRN PO PAIN LEVEL 1-3 OR FEVER; Start at 07:30 Famotidine (Pepcid Iv) 20 mg Q12 IV Last administered on 06/14/16 09:39; Admin Dose 20 MG; Start 06/10/16 at 09:00 Docusate Sodium (Colace) 100 mg Q12H PRN PO CONSTIPATION; Start 06/10/16 at 07: 30 Lorazepam (Ativan) 0.5 mg Q8 PRN PO AGITATION/ANXIETY Last administered on 08:47; Admin Dose 0.5 MG; Start 06/10/16 at 07:30 Metoclopramide HCl (Reglan) 5 mg TID PO Last administered on 06/14/16 15:21; Admin Dose 5 MG; Start 06/10/16 at 09:00 Polyethylene Glycol (Miralax) 8.5 gm DAILY PRN PO CONSTIPATION; Start 06/10/16 at 07:30 Enoxaparin Sodium (Lovenox) 100 mg Q12 SC Last administered on 06/14/16 09:52; Admin Dose 100 MG; Start 06/10/16 at 09:00 Ferrous Sulfate (Ferrous Sulfate (Ec)) 325 mg BID PO Last administered on 09:39; Admin Dose 325 MG; Start 06/10/16 at 21:00 Furosemide 20 mg 20 mg DAILY@06 PO Last administered on 06/14/16 05:37; Admin Dose 20 MG; Start 06/11/16 at 06:00 Potassium Chloride/Dextrose/ Sod Cl (D5-1/2ns + KCl 20 Meq) 1,000 ml @ 60 mls/ hr [id number] IV Last administered on 06/14/16 15:22; Admin Dose 60 MLS/HR; Start 06/11/16 at 16:00 Hydromorphone HCl (Dilaudid SOIL FERTILITY EXTENSION SPECIALIST) 1 MG/HR CONTINUOUS RATE 1... Q4PCA IV Last administered on 06/14/16 15:45; Admin Dose 6 MG; Start 06/12/16 at 21:05 Methadone HCl 2 mg 2 mg Q6 PO Last administered on 06/14/16 17:39; Admin Dose 2 MG; Start 06/13/16 at 14:00 Magnesium Sulfate/ Sodium Chloride (Magnesium Sulfate/NS) 106 ml @ 35.333 mls/ hr ONCE ONCE IVPB ; Start 06/14/16 at 17:30; Stop 06/14/16 at 20:29 José Baez DO Jun 14, 2016 18:16
[2016-06-14] MEDS: DILTIAZEM 60 MG TAB PO SCH (18:35)
--- NOTE | 2016-06-14 19:32 | PN ---
DATE: 06/14/2016 PAIN MANAGEMENT PROGRESS NOTE SUBJECTIVE: She is feeling better, states that she is not sleeping well at night, but her pain is u nder better control, and she is less short of breath. Denies nausea and vomiting today. She is usi ng her FINANCIAL OFFICER machine, and she states she feels better with the use of her FINANCIAL OFFICER machine and uses it also very appropriately at dosings, 1 mg continuous, 1 mg q.30 minute lockout. Denies any hypersomnolen ce associated with it. There have been no hemodynamic changes. OBJECTIVE: VITAL SIGNS: Blood pressure 140/105, pulse of 137, respirations of 20, temperature of 98.2 degrees, 100% saturations on 6 L. CHEST: Distant breath sounds throughout both lung daniels. CORONARY: S1, S2, without S3 or S4. Rapid rate. LABORATORY TESTS: White blood cell count 9.7, hemoglobin 11.4, hematocrit 34.5, MCV of 79.7, platel et count of 634,000. Chemistry: Serum sodium 132, potassium 4.1, chloride 93, bicarbonate 30, BUN 11, creatinine 0.52, blood sugar of 92. 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 We do not have medic al records from [facility]. I spoke to El Storey, the patient's nurse practition er, suggests trying to obtain those medical records and oncology consultation. We should address e oncology consultation first before I open up hospice care. Dictated By: EPHRAIM PHELPS MD LP/NTS Conf#: [id number] DID#: [id number]
[2016-06-15] VITALS (13 sets, daily range): BP systolic 102–128; BP diastolic 63–80; PULSE 104–121; RESP 18–24
[2016-06-15] MEDS: HYDROmorphONE 0.2 MG/ML PCA IV SCH ×5 (00:11→21:48)
[2016-06-15] MEDS: METHADONE (1 MG/1 ML PO SYG) PO SCH ×4 (00:38→18:15)
[2016-06-15] MEDS: DILTIAZEM 60 MG TAB PO SCH ×4 (00:38→18:00)
[2016-06-15] MEDS: D5W-0.45 NACL + KCL 20 MEQ 1,000 ML IV SCH ×3 (03:20→20:00)
[2016-06-15] MEDS: FUROSEMIDE 20 MG TAB PO SCH ×2 (06:12→18:16)
[2016-06-15 08:06] LABS: ADD SCAN DIFF NO
[2016-06-15 08:10] LABS: BASOPHILS % 0.3 % (0.0-2.0); EOSINOPHILS % 0.2 % (0.0-7.0); HEMATOCRIT 34.8 % (37.0-47.0); HEMOGLOBIN 11.1 g/dl (12.0-16.0); LYMPHOCYTES % 19.3 % (15.0-51.0); MEAN CORPUSCULAR HEMOGLOBIN 25.8 pg (29.0-33.0); MEAN CORPUSCULAR HGB CONC 31.9 g/dl (32.0-37.0); MEAN CORPUSCULAR VOLUME 80.7 fl (82.0-101.0); MEAN PLATELET VOLUME 8.6 fl (7.4-10.4); MONOCYTES % 9.6 % (0.0-11.0); NEUTROPHIL # 7.2 10^3/ul (1.6-7.5); NEUTROPHILS % 69.2 % (39.0-77.0); RED BLOOD COUNT 4.31 10^6/ul (4.20-5.40); RED CELL DISTRIBUTION WIDTH 18.9 % (11.5-14.5); WHITE BLOOD COUNT 10.3 10^3/ul (4.8-10.8)
[2016-06-15 08:28] LABS: MAGNESIUM 1.9 mg/dl (1.7-2.5); PHOSPHORUS 3.8 mg/dl (2.5-4.9)
[2016-06-15 08:36] LABS: POTASSIUM 3.7 mmol/L (3.5-5.1)
[2016-06-15 08:38] LABS: CREATININE 0.45 mg/dl (0.44-1.00)
[2016-06-15 08:39] LABS: CALCIUM 7.9 mg/dl (8.4-10.2)
[2016-06-15 09:03] LABS: PLATELET COUNT 727 10^3/UL (140-415)
[2016-06-15] MEDS: FERROUS SULFATE (EC) 325 MG TAB PO SCH ×2 (09:32→21:44)
[2016-06-15] MEDS: FAMOTIDINE 20 MG INJ IV SCH ×2 (09:32→21:44)
[2016-06-15] MEDS: ENOXAPARIN 100 MG/ML SYG SC SCH ×2 (09:33→21:49)
[2016-06-15] MEDS ORDERED: DILTIAZEM 25 MG INJ IV ONE (11:00)
[2016-06-15] MEDS ORDERED: POTASSIUM CHLORIDE (SR) 20 MEQ TAB PO STA (11:29)
[2016-06-15] MEDS ORDERED: MAGNESIUM SULFATE 2 GM/50 ML 50 ML IVPB ONE (11:30)
--- NOTE | 2016-06-15 11:36 | CONS ---
Date/Time of Note Date/Time of Note DATE: 06/15/16 TIME: 11:30 Assessment/Plan Assessment/Plan Additional Assessment/Plan Tachycardia Pulmonary emboli Stomach cancer with metastases DVT Preserved ejection fraction Pleural effusion and abdominal ascites -Telemetry reviewed with episodes of atrial tachycardia and possibly atrial flutter, slightly better with Cardizem. Will start Lopressor. If not improved , might need to start amiodarone. Patient with increased shortness of breath today, plan for CT chest. Would increase diuretics to twice daily but if CT chest with increased effusion, would likely need to switch diuretics to IV. Supplement potassium to maintain above 4.0 and magnesium above 2.0. Consultation Date/Type/Reason Admit Date/Time Jun 10, 2016 at 01:43 Type of Consultation: cv 24 HR Interval Summary Free Text/Dictation Patient with palpitations this morning and shortness of breath. Better after Cardizem. Exam/Review of Systems Vital Signs Vitals Vital Signs Date Time Temp Pulse Resp B/P Pulse Ox O2 Delivery O2 Flow Rate FiO2 06/15/16 08:19 97.6 121 24 105/73 100 06/15/16 07:47 Mask 10.0 Intake and Output 06/14/16 06/14/16 06/15/16 15:00 23:00 07:00 Intake Total 1600 ml 1120 ml Balance 1600 ml 1120 ml Exam On oxygen mask, dyspnea with extensively speaking Constitutional: alert, oriented Head: normocephalic Neck: supple Respiratory: other (Coarse breath sounds bilaterally, no wheezing) Cardiovascular: other (S1-S2 heard), regular rate and rhythm (Tachycardic) Gastrointestinal: bowel sounds, other (No guarding), soft, tender Extremities: edema Results Result Diagram: 06/15/1671806/15/16718 Results 24 hrs Laboratory Tests Test 06/15/16 07:19 Anion Gap 12 Basophils # 0.0 Basophils % 0.3 Blood Urea Nitrogen 9 Calcium Level 7.9 L Carbon Dioxide Level 28 Chloride Level 92 L Creatinine 0.45 Eosinophils # 0.0 Eosinophils % 0.2 Glucose Level 94 Hematocrit 34.8 L Hemoglobin 11.1 L Lymphocytes # 2.0 Lymphocytes % 19.3 Magnesium Level 1.9 Mean Corpuscular Hemoglobin 25.8 L Mean Corpuscular Hemoglobin Concent 31.9 L Mean Corpuscular Volume 80.7 L Mean Platelet Volume 8.6 # Monocytes # 1.0 H Monocytes % 9.6 Neutrophils # 7.2 Neutrophils % 69.2 Nucleated Red Blood Cells # 0.0 Nucleated Red Blood Cells % 0.0 Phosphorus Level 3.8 Platelet Count 727 H Potassium Level 3.7 Red Blood Count 4.31 Red Cell Distribution Width 18.9 H Sodium Level 128 L White Blood Count 10.3 Medications Medications Current Medications Ondansetron HCl (Zofran Inj) 4 mg Q6H PRN IV NAUSEA AND/OR VOMITING Last administered on 06/13/16 18:47; Admin Dose 4 MG; Start 06/10/16 at 07:30 Acetaminophen (Tylenol Tab) 650 mg Q6H PRN PO PAIN LEVEL 1-3 OR FEVER; Start at 07:30 Famotidine (Pepcid Iv) 20 mg Q12 IV Last administered on 06/15/16 09:32; Admin Dose 20 MG; Start 06/10/16 at 09:00 Docusate Sodium (Colace) 100 mg Q12H PRN PO CONSTIPATION; Start 06/10/16 at 07: 30 Polyethylene Glycol (Miralax) 8.5 gm DAILY PRN PO CONSTIPATION; Start 06/10/16 at 07:30 Enoxaparin Sodium (Lovenox) 100 mg Q12 SC Last administered on 06/15/16 09:33 ; Admin Dose 100 MG; Start 06/10/16 at 09:00 Ferrous Sulfate (Ferrous Sulfate (Ec)) 325 mg BID PO Last administered on 09:32; Admin Dose 325 MG; Start 06/10/16 at 21:00 Furosemide 20 mg 20 mg DAILY@06 PO Last administered on 06/15/16 06:12; Admin Dose 20 MG; Start 06/11/16 at 06:00 Potassium Chloride/Dextrose/ Sod Cl (D5-1/2ns + KCl 20 Meq) 1,000 ml @ 60 mls/ hr [id number] IV Last administered on 06/14/16 15:22; Admin Dose 60 MLS/HR; Start 06/11/16 at 16:00 Hydromorphone HCl (Dilaudid CHEMICAL INSTRUMENTATION OFFICER) 1 MG/HR CONTINUOUS RATE 1... Q4PCA IV Last administered on 06/15/16 09:27; Admin Dose 6 MG; Start 06/12/16 at 21:05 Methadone HCl (Methadone Liq (Ped)) 2 mg Q6 PO Last administered on 06/15/16 06:12; Admin Dose 2 MG; Start 06/13/16 at 14:00 Diltiazem HCl (Cardizem) 60 mg Q6 PO Last administered on 06/15/16 06:12; Admin Dose 60 MG; Start 06/14/16 at 18:30 José Baez DO Jun 15, 2016 11:36
[2016-06-15] MEDS: METOPROLOL 50 MG TAB PO SCH ×2 (12:26→21:46)
--- NOTE | 2016-06-15 12:28 | PN ---
Date/Time of Note Date/Time of Note DATE: 06/15/16 TIME: 12:27 Assessment/Plan VTE Prophylaxis VTE Prophylaxis Intervention: LMWH Lines/Catheters IV C[facility]ter Type (from [facility]): Peripheral IV Urinary Cath still in place: No Assessment/Plan Chief Complaint/Hosp Course 1. Pulmonary embolism. Continue therapeutic anticoagulation. Continue supplemental oxygen. Being followed by pulmonology. 2. Left distal superficial femoral vein deep venous thrombosis. Continue treatment as per #1. Vascular surgery on case for placement of an inferior vena cava filter since the patient has hypercoagulability secondary to underlying malignancy. 3. Abdominal pain with moderate ascites, most probably malignant ascites. Status post paracentesis. 4. Stomach cancer with malignant ascites. Palliative care following. The patient is currently a DNR. 5. Microcytic hypochromic anemia. Underlying deficiency. Continue iron supplements. 6. Bilateral pleural effusions. Continue diuresis. 7. Sinus tachycardia. Etiology unclear. Cardiology following. 8. Fluid, electrolytes and nutrition. Regular diet as tolerated. 9. Deep venous thrombosis prophylaxis. Therapeutic anticoagulation. 10. Gastrointestinal prophylaxis. H2 receptor blockers. 11. Plan. Continue therapeutic anticoagulation. Will await IVC filter placement. Will switch the patient to oral anticoagulation once IVC filter is placed. Called Oncology for recommendations. Poor prognosis. Case discussed with . Problems: Subjective 24 Hr Interval Summary Free Text/Dictation "Feeling better." Exam/Review of Systems Vital Signs Vitals Vital Signs Date Time Temp Pulse Resp B/P Pulse Ox O2 Delivery O2 Flow Rate FiO2 06/15/16 12:11 115 06/15/16 11:56 97.9 20 102/64 96 06/15/16 07:47 Mask 10.0 Intake and Output 06/14/16 06/14/16 06/15/16 14:59 22:59 06:59 Intake Total 1600 ml 1120 ml Balance 1600 ml 1120 ml Exam GENERAL: This is an obese female lying in bed in mild respiratory distress with oxygen via nasal cannula on. HEENT: Head normocephalic and atraumatic. Eyes: Anicteric sclerae. Conjunctivae clear. ENT: Nasal septum is midline. Oral mucosa is dry. NECK: Supple. No JVD noticed. RESPIRATORY: Bilaterally diminished breath sounds. Minimal use of accessory muscles of respiration. CARDIAC: Regular rate and rhythm. Sinus tachycardia. ABDOMEN: Distended. Ascites. Diffuse tenderness. GENITOURINARY: Deferred. EXTREMITIES: No cyanosis, no clubbing, no edema. Peripheral pulses palpable. NEUROLOGIC: The patient is awake, alert and oriented. Cranial nerves are grossly intact. Results Result Diagram: 06/15/1671806/15/16 07 Results 24 hrs Laboratory Tests Test 06/15/16 07:19 Anion Gap 12 Basophils # 0.0 Basophils % 0.3 Blood Urea Nitrogen 9 Calcium Level 7.9 L Carbon Dioxide Level 28 Chloride Level 92 L Creatinine 0.45 Eosinophils # 0.0 Eosinophils % 0.2 Glucose Level 94 Hematocrit 34.8 L Hemoglobin 11.1 L Lymphocytes # 2.0 Lymphocytes % 19.3 Magnesium Level 1.9 Mean Corpuscular Hemoglobin 25.8 L Mean Corpuscular Hemoglobin Concent 31.9 L Mean Corpuscular Volume 80.7 L Mean Platelet Volume 8.6 # Monocytes # 1.0 H Monocytes % 9.6 Neutrophils # 7.2 Neutrophils % 69.2 Nucleated Red Blood Cells # 0.0 Nucleated Red Blood Cells % 0.0 Phosphorus Level 3.8 Platelet Count 727 H Potassium Level 3.7 Red Blood Count 4.31 Red Cell Distribution Width 18.9 H Sodium Level 128 L White Blood Count 10.3 Medications Medications Current Medications Ondansetron HCl (Zofran Inj) 4 mg Q6H PRN IV NAUSEA AND/OR VOMITING Last administered on 06/13/16 18:47; Admin Dose 4 MG; Start 06/10/16 at 07:30 Acetaminophen (Tylenol Tab) 650 mg Q6H PRN PO PAIN LEVEL 1-3 OR FEVER; Start at 07:30 Famotidine (Pepcid Iv) 20 mg Q12 IV Last administered on 06/15/16 09:32; Admin Dose 20 MG; Start 06/10/16 at 09:00 Docusate Sodium (Colace) 100 mg Q12H PRN PO CONSTIPATION; Start 06/10/16 at 07: 30 Polyethylene Glycol (Miralax) 8.5 gm DAILY PRN PO CONSTIPATION; Start 06/10/16 at 07:30 Enoxaparin Sodium (Lovenox) 100 mg Q12 SC Last administered on 06/15/16 09:33 ; Admin Dose 100 MG; Start 06/10/16 at 09:00 Ferrous Sulfate 325 mg 325 mg BID PO Last administered on 06/15/16 09:32; Admin Dose 325 MG; Start 06/10/16 at 21:00 Potassium Chloride/Dextrose/ Sod Cl (D5-1/2ns + KCl 20 Meq) 1,000 ml @ 60 mls/ hr [id number] IV Last administered on 06/14/16 15:22; Admin Dose 60 MLS/HR; Start 06/11/16 at 16:00 Hydromorphone HCl (Dilaudid ADMINISTRATIVE ASSISTANT OFFICE MANAGER) 1 MG/HR CONTINUOUS RATE 1... Q4PCA IV Last administered on 06/15/16 09:27; Admin Dose 6 MG; Start 06/12/16 at 21:05 Methadone HCl (Methadone Liq (Ped)) 2 mg Q6 PO Last administered on 06/15/16 06:12; Admin Dose 2 MG; Start 06/13/16 at 14:00 Diltiazem HCl (Cardizem) 60 mg Q6 PO Last administered on 06/15/16 06:12; Admin Dose 60 MG; Start 06/14/16 at 18:30 Metoprolol Tartrate 50 mg 50 mg BID PO ; Start 06/15/16 at 11:30 Magnesium Sulfate (Magnesium Sulfate 2 Gm/50 ml) 50 ml @ 25 mls/hr ONCE ONCE IVPB ; Start 06/15/16 at 11:30; Stop 06/15/16 at 13:29 NAYELY LINTON NP Jun 15, 2016 12:28
--- NOTE | 2016-06-15 13:09 | PN ---
DATE: 06/15/2016 SUBJECTIVE: The patient remains stable this morning. No new events. Continues on Ventimask oxygen. PHYSICAL EXAMINATION: VITAL SIGNS: Temperature 97, pulse is 115, blood pressure 102/64, O2 saturation 96% on 10 liters condon pplemental O2. NECK: Supple, no JVD or lymphadenopathy. CARDIAC: S1, S2, no added sounds or murmurs. CHEST: Diminished air entry bilaterally. ABDOMEN: Soft, nontender. No guarding or rebound. EXTREMITIES: No cyanosis, clubbing, 1+ edema. NEUROLOGIC: Generalized weakness. LABORATORY DATA: White count 10.3, hemoglobin 9.1, platelets 727. Chemistry within normal limits e xcept for sodium of 128. Most recent chest x-ray shows bibasilar atelectasis and small right pleura l effusion. IMPRESSION AND PLAN: 1. Metastatic gastric cancer. 2. Pleural effusions, likely malignant in origin. 3. Hypoxemic respiratory failure, likely secondary to a component of alveolar hypoventilation. 4. History of deep venous thrombosis and pulmonary embolism, pending inferior vena cava. 5. Tachycardia, likely secondary to underlying malignancy and/or possible component of mild sepsis. The patient will require: 1. Continued supplemental O2. 2. Appreciate hematology/oncology recommendations. 3. DVT and GI prophylaxis. Dictated By: ERROL CORBETT/CAROL Conf#: [id number] DID#: [id number]
--- NOTE | 2016-06-15 16:08 | CONS ---
Date/Time of Note Date/Time of Note DATE: 06/15/16 TIME: 16:00 Assessment/Plan Assessment/Plan Chief Complaint/Hosp Course 36 yo female with metastatic gastric cancer wh ohas failed multiple lines of chemotherapy who now presents with shortness of breath secondary to pulmonary embolism 1. Metastatic gastric cancer - pt has failed multiple lines of chemotherapy and is no longer a candidate for chemotherapy given her frail state - She carries a very poor prognosis. I would recommend hospice evaluation 2. Left lower extremity deep vein thrombosis and pulmonary embolism in bilateral pulmonary arteries - agree with plan for IVC filter - agree with Lovenox 100mg SQ q 12 Problems: Consultation Date/Type/Reason Admit Date/Time Jun 10, 2016 at 01:43 Date of Consultation: Jun 15, 2016 Type of Consultation: Oncology Reason for Consultation metastatic gastric cancer Referring Provider: NAYELY LINTON NP Hx of Present Illness 36-year-old female with metastatic gastric cancer dx 08/2015 with peritoneal metastasis. Pt was being treated at [facility] and has progressed through Xeloda and then Taxol/ Ramcirumab. PT was deemed too ill for further chemotherapy and was referred to hospice but per oncologist at [facility], her was not comfortable with this. She now presents with dyspnea, abdominal pain and back pain. In the ER a CT pulmonary angiogram was done and it showed a pulmonary embolism as well as moderate ascites, enlarged mediastinal lymph nodes and a partially loculated pleural effusion. She was started on anticoagulation and admitted for treatment of PE. Subjective hx not possible: other (weak) Constitutional: diaphoresis, poor po, requiring O2 Eyes: no complaints ENT: no complaints Respiratory: cough, pleuritic pain, shortness of breath Cardiovascular: no complaints Gastrointestinal: decreased appetite, nausea, pain Genitourinary: no complaints Musculoskeletal: back pain, bone/joint pain Skin: no complaints Neurologic: no complaints Past Medical History Medical History: no pertinent history Family History Significant Family History: no pertinent family hx Social History Alcohol Use: none Smoking Status: Never smoker Drug Use: none Exam/Review of Systems Vital Signs Vitals Vital Signs Date Time Temp Pulse Resp B/P Pulse Ox O2 Delivery O2 Flow Rate FiO2 06/15/16 13:20 Simple Mask 10.0 06/15/16 12:11 115 06/15/16 11:56 97.9 20 102/64 96 Intake and Output 06/14/16 06/14/16 06/15/16 15:00 23:00 07:00 Intake Total 1600 ml 1120 ml Balance 1600 ml 1120 ml Exam Constitutional: alert, distress, frail, oriented Psych: anxiety, depression Head: normocephalic Eyes: nl conjunctiva ENMT: nl external ears & nose Neck: supple Respiratory: crackles/rales, diminished breath sounds, intercostal retraction, labored breathing, other (on face mask) Cardiovascular: other (tachycardic) Gastrointestinal: soft Musculoskeletal: nl extremities to inspection Extremities: normal pulses Results Result Diagram: 06/15/1671806/15/16718 Results 24 hrs Laboratory Tests Test 06/15/16 07:19 Anion Gap 12 Basophils # 0.0 Basophils % 0.3 Blood Urea Nitrogen 9 Calcium Level 7.9 L Carbon Dioxide Level 28 Chloride Level 92 L Creatinine 0.45 Eosinophils # 0.0 Eosinophils % 0.2 Glucose Level 94 Hematocrit 34.8 L Hemoglobin 11.1 L Lymphocytes # 2.0 Lymphocytes % 19.3 Magnesium Level 1.9 Mean Corpuscular Hemoglobin 25.8 L Mean Corpuscular Hemoglobin Concent 31.9 L Mean Corpuscular Volume 80.7 L Mean Platelet Volume 8.6 # Monocytes # 1.0 H Monocytes % 9.6 Neutrophils # 7.2 Neutrophils % 69.2 Nucleated Red Blood Cells # 0.0 Nucleated Red Blood Cells % 0.0 Phosphorus Level 3.8 Platelet Count 727 H Potassium Level 3.7 Red Blood Count 4.31 Red Cell Distribution Width 18.9 H Sodium Level 128 L White Blood Count 10.3 Medications Medications Current Medications Ondansetron HCl (Zofran Inj) 4 mg Q6H PRN IV NAUSEA AND/OR VOMITING Last administered on 06/13/16 18:47; Admin Dose 4 MG; Start 06/10/16 at 07:30 Acetaminophen (Tylenol Tab) 650 mg Q6H PRN PO PAIN LEVEL 1-3 OR FEVER; Start at 07:30 Famotidine (Pepcid Iv) 20 mg Q12 IV Last administered on 06/15/16 09:32; Admin Dose 20 MG; Start 06/10/16 at 09:00 Docusate Sodium (Colace) 100 mg Q12H PRN PO CONSTIPATION; Start 06/10/16 at 07: 30 Polyethylene Glycol (Miralax) 8.5 gm DAILY PRN PO CONSTIPATION; Start 06/10/16 at 07:30 Enoxaparin Sodium (Lovenox) 100 mg Q12 SC Last administered on 06/15/16 09:33 ; Admin Dose 100 MG; Start 06/10/16 at 09:00 Ferrous Sulfate 325 mg 325 mg BID PO Last administered on 06/15/16 09:32; Admin Dose 325 MG; Start 06/10/16 at 21:00 Potassium Chloride/Dextrose/ Sod Cl (D5-1/2ns + KCl 20 Meq) 1,000 ml @ 60 mls/ hr [id number] IV Last administered on 06/15/16 12:23; Admin Dose 60 MLS/HR; Start 06/11/16 at 16:00 Hydromorphone HCl (Dilaudid PLUMBING ASSEMBLER INSTALLER) 1 MG/HR CONTINUOUS RATE 1... Q4PCA IV Last administered on 06/15/16 09:27; Admin Dose 6 MG; Start 06/12/16 at 21:05 Methadone HCl (Methadone Liq (Ped)) 2 mg Q6 PO Last administered on 06/15/16 12:23; Admin Dose 2 MG; Start 06/13/16 at 14:00 Diltiazem HCl (Cardizem) 60 mg Q6 PO Last administered on 06/15/16 06:12; Admin Dose 60 MG; Start 06/14/16 at 18:30 Metoprolol Tartrate (Lopressor) 50 mg BID PO Last administered on 06/15/16 12: 26; Admin Dose 50 MG; Start 06/15/16 at 11:30 LISSET BABIN M.D. Jun 15, 2016 16:08
--- NOTE | 2016-06-15 17:20 | RADRPT ---
Vent Rate: 117 bpm RR Interval: 0 msec [place] Interval: 172 msec QRS Duration: 96 msec QT Interval: 332 msec QTC Interval: 463 msec P-R-T [place]: 28 - 64 - 42 degrees Sinus tachycardia Otherwise normal ECG Electronically Signed By: Stephen Doherty [id number]
[2016-06-15] MEDS: NITROGLYCERIN (SL) 0.4 MG TAB SL PRN ×2 (22:58→23:16)
[2016-06-16] VITALS (14 sets, daily range): BP systolic 91–127; BP diastolic 56–76; PULSE 86–110; RESP 17–19
[2016-06-16] MEDS: DILTIAZEM 60 MG TAB PO SCH ×5 (00:41→17:29)
[2016-06-16] MEDS: METHADONE (1 MG/1 ML PO SYG) PO SCH ×4 (00:41→17:29)
[2016-06-16] MEDS: HYDROmorphONE 0.2 MG/ML PCA IV SCH ×6 (02:04→23:17)
[2016-06-16] MEDS: D5W-0.45 NACL + KCL 20 MEQ 1,000 ML IV SCH ×3 (05:25→23:15)
[2016-06-16] MEDS: FUROSEMIDE 20 MG TAB PO SCH ×2 (05:27→17:29)
--- NOTE | 2016-06-16 08:45 | PN ---
Date/Time of Note Date/Time of Note DATE: 06/16/16 TIME: 08:43 Assessment/Plan Lines/Catheters IV Catheter Type (from [facility]): Peripheral IV Jackson in Place (from [facility]): No Assessment/Plan Chief Complaint/Hosp Course -Left lower extremity deep vein thrombosis and pulmonary embolism in bilateral pulmonary arteries: It seems that the patient's metastatic stomach cancer is the likely the cause of her being hypercoagulable and developing deep vein thrombosis and pulmonary embolism. Despite her being on prophylactic anticoagulation, she has developed pulmonary embolism. -Will plan for inferior vena cava filter placement, in light of these findings. However, the patient is not a candidate for endovascular interventions, such as thrombolysis or thrombectomy, as the patient's prognosis seems to be poor -Optimize vascular status. -Continue with her anticoagulation for now. -Will plan to place IVC filter in the coming days if the patient agrees and multidisciplinary team feels it is necessary given her poor prognosis -Elevate left lower extremity. -Discussed findings, plan, and management with the patient and family at the bedside with a certified powder nipper and they understand. -Thank you for allowing us to partake in the care of your patient. Please call with any questions. Problems: Subjective 24 Hr Interval Summary no new vascular events overnight, requiring oxygen support Exam/Review of Systems Vital Signs Vitals Vital Signs Date Time Temp Pulse Resp B/P Pulse Ox O2 Delivery O2 Flow Rate FiO2 06/16/16 08:41 97.6 102 19 112/74 100 06/16/16 00:39 10.0 06/15/16 23:00 Simple Mask Intake and Output 06/15/16 06/15/16 06/16/16 14:59 22:59 06:59 Intake Total 1020 ml Output Total 200 ml Balance 820 ml Exam Free Text/Dictation GENERAL: Alert and oriented x3. PULMONARY: Coarse breath sounds bilaterally, crackles at the bases. CARDIOVASCULAR: S1, S2 present. ABDOMEN: Soft, nontender, nondistended. Bowel sounds positive. Truncal obesity. EXTREMITIES: Palpable femoral pulses, palpable pedal pulses. Motor, sensory intact. Capillary refill 2 to 3 seconds. Edema 1+ of the left lower extremity. Results Result Diagram: 06/15/16 0719 06/15/16 0719 RACHID CRUZ MD Jun 16, 2016 08:45
[2016-06-16] MEDS: FERROUS SULFATE (EC) 325 MG TAB PO SCH ×2 (09:04→21:46)
[2016-06-16] MEDS: FAMOTIDINE 20 MG INJ IV SCH ×2 (09:04→21:48)
[2016-06-16] MEDS: METOPROLOL 50 MG TAB PO SCH ×2 (09:04→21:49)
[2016-06-16] MEDS: ENOXAPARIN 100 MG/ML SYG SC SCH ×2 (09:11→21:52)
--- NOTE | 2016-06-16 09:21 | PN ---
Date/Time of Note Date/Time of Note DATE: 06/16/16 TIME: 09:18 Assessment/Plan VTE Prophylaxis VTE Prophylaxis Intervention: LMWH Lines/Catheters IV Catheter Type (from [facility]): Peripheral IV Urinary Cath still in place: No Assessment/Plan Chief Complaint/Hosp Course 1. Pulmonary embolism. Continue therapeutic anticoagulation. Continue supplemental oxygen. Being followed by pulmonology. 2. Left distal superficial femoral vein deep venous thrombosis. Continue treatment as per #1. Vascular surgery was on the case for possible inferior vena cava filter since the patient has hypercoagulability secondary to underlying malignancy. However, vascular surgery suggested no IVC filter placement provided the patient's advanced malignancy 3. Abdominal pain with moderate ascites, most probably malignant ascites. Status post paracentesis. 4. Stomach cancer with malignant ascites. Palliative care following. The patient is currently a DNR. 5. Microcytic hypochromic anemia. Underlying deficiency. Continue iron supplements. 6. Bilateral pleural effusions. Continue diuresis. 7. Sinus tachycardia. Etiology unclear. Cardiology following. Improving with beta-blockers. 8. Fluid, electrolytes and nutrition. Regular diet as tolerated. 9. Deep venous thrombosis prophylaxis. Therapeutic anticoagulation. 10. Gastrointestinal prophylaxis. H2 receptor blockers. 11. Plan. Continue therapeutic anticoagulation. The patient had a CT scan of the abdomen and pelvis ordered to evaluate the extent of metastasis. However, the patient's urine hCG and a beta hCG was found to be positive. The patient verbalized that she has not had any menstrual periods for the past few months. Will obtain a pelvic ultrasound to evaluate for any underlying intrauterine . Case discussed with . Problems: Subjective 24 Hr Interval Summary Free Text/Dictation Had an episode of chest pain last night. Denies any pain at this time. On Dilaudid ADVANCED MANUFACTURING ENGINEER. Exam/Review of Systems Vital Signs Vitals Vital Signs Date Time Temp Pulse Resp B/P Pulse Ox O2 Delivery O2 Flow Rate FiO2 06/16/16 08:41 97.6 102 19 112/74 100 06/16/16 00:39 10.0 06/15/16 23:00 Simple Mask Intake and Output 06/15/16 06/15/16 06/16/16 15:00 23:00 07:00 Intake Total 1020 ml Output Total 200 ml Balance 820 ml Exam GENERAL: This is an obese female lying in bed in mild respiratory distress with oxygen via nasal cannula on. HEENT: Head normocephalic and atraumatic. Eyes: Anicteric sclerae. Conjunctivae clear. ENT: Nasal septum is midline. Oral mucosa is dry. NECK: Supple. No JVD noticed. RESPIRATORY: Bilaterally diminished breath sounds. Minimal use of accessory muscles of respiration. CARDIAC: Regular rate and rhythm. Sinus tachycardia. ABDOMEN: Distended. Ascites. Diffuse tenderness. GENITOURINARY: Deferred. EXTREMITIES: No cyanosis, no clubbing, no edema. Peripheral pulses palpable. NEUROLOGIC: The patient is awake, alert and oriented. Cranial nerves are grossly intact. Results Result Diagram: 06/15/1671806/15/16718 Results 24 hrs Laboratory Tests Test 06/15/16 15:45 06/15/16 23:09 Urine Test POSITIVE Beta HCG, Quantitative 82.8 Medications Medications Current Medications Ondansetron HCl (Zofran Inj) 4 mg Q6H PRN IV NAUSEA AND/OR VOMITING Last administered on 06/13/16 18:47; Admin Dose 4 MG; Start 06/10/16 at 07:30 Acetaminophen (Tylenol Tab) 650 mg Q6H PRN PO PAIN LEVEL 1-3 OR FEVER; Start at 07:30 Famotidine (Pepcid Iv) 20 mg Q12 IV Last administered on 06/16/16 09:04; Admin Dose 20 MG; Start 06/10/16 at 09:00 Docusate Sodium (Colace) 100 mg Q12H PRN PO CONSTIPATION; Start 06/10/16 at 07: 30 Polyethylene Glycol (Miralax) 8.5 gm DAILY PRN PO CONSTIPATION; Start 06/10/16 at 07:30 Enoxaparin Sodium (Lovenox) 100 mg Q12 SC Last administered on 06/16/16 09:11 ; Admin Dose 100 MG; Start 06/10/16 at 09:00 Ferrous Sulfate 325 mg 325 mg BID PO Last administered on 06/16/16 09:04; Admin Dose 325 MG; Start 06/10/16 at 21:00 Potassium Chloride/Dextrose/ Sod Cl (D5-1/2ns + KCl 20 Meq) 1,000 ml @ 60 mls/ hr [id number] IV Last administered on 06/16/16 05:25; Admin Dose 60 MLS/HR; Start 06/11/16 at 16:00 Hydromorphone HCl (Dilaudid ADVANCED MANUFACTURING ENGINEER) 1 MG/HR CONTINUOUS RATE 1... Q4PCA IV Last administered on 06/16/16 07:04; Admin Dose 6 MG; Start 06/12/16 at 21:05 Methadone HCl (Methadone Liq (Ped)) 2 mg Q6 PO Last administered on 06/16/16 05:27; Admin Dose 2 MG; Start 06/13/16 at 14:00 Diltiazem HCl (Cardizem) 60 mg Q6 PO Last administered on 06/16/16 05:28; Admin Dose 60 MG; Start 06/14/16 at 18:30 Metoprolol Tartrate (Lopressor) 50 mg BID PO Last administered on 06/16/16 09: 04; Admin Dose 50 MG; Start 06/15/16 at 11:30 Nitroglycerin (Nitroglycerin (Sl Tab) 0.4 Mg) 1 tab Q5M PRN SL ANGINA Last administered on 06/15/16 23:16; Admin Dose 1 TAB; Start 06/15/16 at 22:47 NAYELY LINTON NP Jun 16, 2016 09:21
--- NOTE | 2016-06-16 10:03 | PN ---
Date/Time of Note Date/Time of Note DATE: 06/16/16 TIME: 10:01 Assessment/Plan VTE Prophylaxis VTE Prophylaxis Intervention: SCD's Lines/Catheters IV Catheter Type (from [facility]): Peripheral IV Urinary Cath still in place: No Assessment/Plan Assessment/Plan Tachycardia Pulmonary emboli Stomach cancer with metastases DVT Preserved ejection fraction Pleural effusion and abdominal ascites -Telemetry reviewed with episodes of atrial tachycardia and possibly atrial flutter, slightly better with Cardizem / Lopressor. -on lasix Supplement potassium to maintain above 4.0 and magnesium above 2.0. Subjective 24 Hr Interval Summary Free Text/Dictation The patient iwt no change Exam/Review of Systems Vital Signs Vitals Vital Signs Date Time Temp Pulse Resp B/P Pulse Ox O2 Delivery O2 Flow Rate FiO2 06/16/16 08:41 97.6 102 19 112/74 100 06/16/16 00:39 10.0 06/15/16 23:00 Simple Mask Intake and Output 06/15/16 06/15/16 06/16/16 15:00 23:00 07:00 Intake Total 1020 ml Output Total 200 ml Balance 820 ml Results Result Diagram: 06/15/1671806/15/16718 Results 24 hrs Laboratory Tests Test 06/15/16 15:45 06/15/16 23:09 Urine Test POSITIVE Beta HCG, Quantitative 82.8 Medications Medications Current Medications Ondansetron HCl (Zofran Inj) 4 mg Q6H PRN IV NAUSEA AND/OR VOMITING Last administered on 06/13/16 18:47; Admin Dose 4 MG; Start 06/10/16 at 07:30 Acetaminophen (Tylenol Tab) 650 mg Q6H PRN PO PAIN LEVEL 1-3 OR FEVER; Start at 07:30 Famotidine (Pepcid Iv) 20 mg Q12 IV Last administered on 06/16/16 09:04; Admin Dose 20 MG; Start 06/10/16 at 09:00 Docusate Sodium (Colace) 100 mg Q12H PRN PO CONSTIPATION; Start 06/10/16 at 07: 30 Polyethylene Glycol (Miralax) 8.5 gm DAILY PRN PO CONSTIPATION; Start 06/10/16 at 07:30 Enoxaparin Sodium (Lovenox) 100 mg Q12 SC Last administered on 06/16/16 09:11 ; Admin Dose 100 MG; Start 06/10/16 at 09:00 Ferrous Sulfate 325 mg 325 mg BID PO Last administered on 06/16/16 09:04; Admin Dose 325 MG; Start 06/10/16 at 21:00 Potassium Chloride/Dextrose/ Sod Cl (D5-1/2ns + KCl 20 Meq) 1,000 ml @ 60 mls/ hr [id number] IV Last administered on 06/16/16 05:25; Admin Dose 60 MLS/HR; Start 06/11/16 at 16:00 Hydromorphone HCl (Dilaudid TRANSMISSION SYSTEMS OPERATOR) 1 MG/HR CONTINUOUS RATE 1... Q4PCA IV Last administered on 06/16/16 07:04; Admin Dose 6 MG; Start 06/12/16 at 21:05 Methadone HCl (Methadone Liq (Ped)) 2 mg Q6 PO Last administered on 06/16/16 05:27; Admin Dose 2 MG; Start 06/13/16 at 14:00 Diltiazem HCl (Cardizem) 60 mg Q6 PO Last administered on 06/16/16 05:28; Admin Dose 60 MG; Start 06/14/16 at 18:30 Metoprolol Tartrate (Lopressor) 50 mg BID PO Last administered on 06/16/16 09: 04; Admin Dose 50 MG; Start 06/15/16 at 11:30 Nitroglycerin (Nitroglycerin (Sl Tab) 0.4 Mg) 1 tab Q5M PRN SL ANGINA Last administered on 06/15/16 23:16; Admin Dose 1 TAB; Start 06/15/16 at 22:47 ERIBERTO DOMINGUEZ MD Jun 16, 2016 10:03
--- NOTE | 2016-06-16 16:57 | RADRPT ---
PROCEDURE: US OB. CLINICAL INDICATION: Abdominal pain with a positive test. TECHNIQUE: Transabdominal imaging of the gravid uterus was performed. Images are reviewed on a h igh-resolution PACS workstation. COMPARISON: Abdominal ultrasound dated 06/13/2016. FINDINGS: No intrauterine is identified. The uterus measures 7.3 x 3.8 x 6.2 cm. The right ovary chaparro sures 3.9 x 2.1 x 2.3 cm and the left ovary measures 2.9 x 1.7 x 2.4 cm. There is normal flow demons trated within both ovaries. There are no adnexal masses. There is a moderate volume of ascites with in the visualized pelvis. IMPRESSION: 1. No intrauterine is identified. While this can be a normal finding in early , an ectopic is not excluded and clinical correlation with serial beta HCG and follow-up ul trasound is recommended. 2. Moderate volume of ascites. RPTAT: EE .Pratik Tovar MD, Date Time Electronically viewed and signed by .Pratik Tovar MD, on 06/16/2016 16:57 .P/
[2016-06-16] MEDS: ONDANSETRON 4 MG INJ IV PRN (17:30)
--- NOTE | 2016-06-16 18:00 | CONS ---
Date/Time of Note Date/Time of Note DATE: 06/16/16 TIME: 17:57 Consult Date/Type/Reason Admit Date/Time Jun 10, 2016 at 01:43 Initial Consult Date 06/15/16 Type of Consultation: Pulm Ordering Provider: NAYELY LINTON EPIC ANALYST Subjective On 8L FM, still SOB. Objective Vital Signs Date Time Temp Pulse Resp B/P Pulse Ox O2 Delivery O2 Flow Rate FiO2 06/16/16 16:39 100 8.0 06/16/16 16:20 94 06/16/16 16:15 97.9 18 108/76 06/15/16 23:00 Simple Mask Intake and Output 06/15/16 06/15/16 06/16/16 15:00 23:00 07:00 Intake Total 1020 ml Output Total 200 ml Balance 820 ml HEENT: Neck supple; no JVD; no LAD CVS: tachy, S1 and S2 CHEST: Coarse BS ABD: Soft, NT, + BS EXT: No c/c/e Results/Medications Result Diagram: 06/15/1671806/15/16718 Results 24 hrs Laboratory Tests Test 06/15/16 23:09 Beta HCG, Quantitative 82.8 Medications Current Medications Ondansetron HCl (Zofran Inj) 4 mg Q6H PRN IV NAUSEA AND/OR VOMITING Last administered on 06/16/16 17:30; Admin Dose 4 MG; Start 06/10/16 at 07:30 Acetaminophen (Tylenol Tab) 650 mg Q6H PRN PO PAIN LEVEL 1-3 OR FEVER; Start at 07:30 Famotidine (Pepcid Iv) 20 mg Q12 IV Last administered on 06/16/16 09:04; Admin Dose 20 MG; Start 06/10/16 at 09:00 Docusate Sodium (Colace) 100 mg Q12H PRN PO CONSTIPATION; Start 06/10/16 at 07: 30 Polyethylene Glycol (Miralax) 8.5 gm DAILY PRN PO CONSTIPATION; Start 06/10/16 at 07:30 Enoxaparin Sodium (Lovenox) 100 mg Q12 SC Last administered on 06/16/16 09:11 ; Admin Dose 100 MG; Start 06/10/16 at 09:00 Ferrous Sulfate 325 mg 325 mg BID PO Last administered on 06/16/16 09:04; Admin Dose 325 MG; Start 06/10/16 at 21:00 Potassium Chloride/Dextrose/ Sod Cl (D5-1/2ns + KCl 20 Meq) 1,000 ml @ 60 mls/ hr [id number] IV Last administered on 06/16/16 05:25; Admin Dose 60 MLS/HR; Start 06/11/16 at 16:00 Hydromorphone HCl (Dilaudid AIRCRAFT CYLINDER MECHANIC) 1 MG/HR CONTINUOUS RATE 1... Q4PCA IV Last administered on 06/16/16 15:54; Admin Dose 6 MG; Start 06/12/16 at 21:05 Methadone HCl (Methadone Liq (Ped)) 2 mg Q6 PO Last administered on 06/16/16 17:29; Admin Dose 2 MG; Start 06/13/16 at 14:00 Diltiazem HCl (Cardizem) 60 mg Q6 PO Last administered on 06/16/16 05:28; Admin Dose 60 MG; Start 06/14/16 at 18:30 Metoprolol Tartrate (Lopressor) 50 mg BID PO Last administered on 06/16/16 09: 04; Admin Dose 50 MG; Start 06/15/16 at 11:30 Nitroglycerin (Nitroglycerin (Sl Tab) 0.4 Mg) 1 tab Q5M PRN SL ANGINA Last administered on 06/15/16 23:16; Admin Dose 1 TAB; Start 06/15/16 at 22:47 Assessment/Plan Additional Assessment/Plan IMP: 1. 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 Pleural effusions, likely malignant in origin. 3. Hypoxemic respiratory insufficiency due to cancer and PE 4. History of deep venous thrombosis and pulmonary embolism 5. Tachycardia RECS: 1. Change oxygen delivery to high-flow nasal canula 2. Trial of systemic CS may help with lymphangitic carcinomatosis 3. Anticoagulation RYLAN JOSEPH MD Jun 16, 2016 18:00
[2016-06-16] MEDS: METHYLPREDNISOLONE 40 MG INJ IV SCH (21:46)
[2016-06-16] MEDS: NITROGLYCERIN (SL) 0.4 MG TAB SL PRN (22:59)
[2016-06-17] VITALS (13 sets, daily range): BP systolic 89–119; BP diastolic 59–78; PULSE 90–110; RESP 15–25
[2016-06-17] MEDS: METHADONE (1 MG/1 ML PO SYG) PO SCH ×4 (00:40→18:11)
[2016-06-17] MEDS: DILTIAZEM 60 MG TAB PO SCH ×4 (00:40→18:12)
[2016-06-17] MEDS: HYDROmorphONE 0.2 MG/ML PCA IV SCH ×3 (03:07→18:25)
[2016-06-17] MEDS: FUROSEMIDE 20 MG TAB PO SCH ×2 (05:50→18:12)
[2016-06-17] MEDS: METOPROLOL 50 MG TAB PO SCH ×2 (09:00→20:09)
[2016-06-17] MEDS: METHYLPREDNISOLONE 40 MG INJ IV SCH ×2 (09:04→20:09)
[2016-06-17] MEDS: FERROUS SULFATE (EC) 325 MG TAB PO SCH ×2 (09:04→20:09)
[2016-06-17] MEDS: FAMOTIDINE 20 MG INJ IV SCH ×2 (09:04→20:09)
[2016-06-17] MEDS: ENOXAPARIN 100 MG/ML SYG SC SCH ×2 (09:05→20:18)
--- NOTE | 2016-06-17 09:07 | PN ---
Date/Time of Note Date/Time of Note DATE: 06/17/16 TIME: 09:02 Assessment/Plan VTE Prophylaxis VTE Prophylaxis Intervention: LMWH Lines/Catheters [facility] (from [facility] Peripheral IV Urinary Cath still in place: No Assessment/Plan Chief Complaint/Hosp Course 1. Pulmonary embolism. Continue therapeutic anticoagulation. Continue supplemental oxygen. Being followed by pulmonology. 2. Left distal superficial femoral vein deep venous thrombosis. Continue treatment as per #1. Vascular surgery was on the case for possible inferior vena cava filter since the patient has hypercoagulability secondary to underlying malignancy. However, vascular surgery suggested no IVC filter placement provided the patient's advanced malignancy 3. Abdominal pain with moderate ascites, most probably malignant ascites. Status post paracentesis. 4. Stomach cancer with malignant ascites. Palliative care following. The patient is currently a DNR. 5. Microcytic hypochromic anemia. Underlying deficiency. Continue iron supplements. 6. Bilateral pleural effusions. Continue diuresis. 7. Acute respiratory failure. Hypoxic. Continue supplemental oxygen and inhaled bronchodilators. The patient being followed by pulmonary. 8. Sinus tachycardia. Etiology unclear. Cardiology following. Improving with beta-blockers. 9. Fluid, electrolytes and nutrition. Regular diet as tolerated. 10. Deep venous thrombosis prophylaxis. Therapeutic anticoagulation. 11. Gastrointestinal prophylaxis. H2 receptor blockers. 12. Plan. Continue therapeutic anticoagulation. Palliative Care planning on talking to the patient and family regarding comfort measures. Case discussed with . Problems: Subjective 24 Hr Interval Summary Free Text/Dictation Remains on Dilaudid INSULATION PROFESSIONAL. Currently on high flow O2. Exam/Review of Systems Vital Signs Vitals Vital Signs Date Time Temp Pulse Resp B/P Pulse Ox O2 Delivery O2 Flow Rate FiO2 06/17/16 08:20 92 06/17/16 08:19 100 40 06/17/16 07:31 98.3 24 90/67 06/17/16 01:30 High Flow 06/16/16 16:39 8.0 Intake and Output 06/16/16 06/16/16 06/17/16 15:00 23:00 07:00 Intake Total 1400 ml 1800 ml Output Total 1000 ml 1500 ml Balance 400 ml 300 ml Exam GENERAL: This is an obese female lying in bed in mild respiratory distress with oxygen via high flow nasal cannula on. HEENT: Head normocephalic and atraumatic. Eyes: Anicteric sclerae. Conjunctivae clear. ENT: Nasal septum is midline. Oral mucosa is dry. NECK: Supple. No JVD noticed. RESPIRATORY: Bilaterally diminished breath sounds. Minimal use of accessory muscles of respiration. CARDIAC: Regular rate and rhythm. Sinus tachycardia. ABDOMEN: Distended. Ascites. Diffuse tenderness. GENITOURINARY: Deferred. EXTREMITIES: No cyanosis, no clubbing, no edema. Peripheral pulses palpable. NEUROLOGIC: The patient is awake, alert and oriented. Cranial nerves are grossly intact. Results Result Diagram: 06/15/1671806/15/16718 Results 24 hrs Laboratory Tests Test 06/16/16 21:39 Bedside Glucose 96 Medications Medications Current Medications Ondansetron HCl (Zofran Inj) 4 mg Q6H PRN IV NAUSEA AND/OR VOMITING Last administered on 06/16/16 17:30; Admin Dose 4 MG; Start 06/10/16 at 07:30 Acetaminophen (Tylenol Tab) 650 mg Q6H PRN PO PAIN LEVEL 1-3 OR FEVER Last administered on 06/16/16 22:50; Admin Dose 650 MG; Start 06/10/16 at 07:30 Famotidine (Pepcid Iv) 20 mg Q12 IV Last administered on 06/16/16 21:48; Admin Dose 20 MG; Start 06/10/16 at 09:00 Docusate Sodium (Colace) 100 mg Q12H PRN PO CONSTIPATION; Start 06/10/16 at 07: 30 Polyethylene Glycol (Miralax) 8.5 gm DAILY PRN PO CONSTIPATION; Start 06/10/16 at 07:30 Enoxaparin Sodium (Lovenox) 100 mg Q12 SC Last administered on 06/16/16 21:52 ; Admin Dose 100 MG; Start 06/10/16 at 09:00 Ferrous Sulfate 325 mg 325 mg BID PO Last administered on 06/16/16 21:46; Admin Dose 325 MG; Start 06/10/16 at 21:00 Potassium Chloride/Dextrose/ Sod Cl (D5-1/2ns + KCl 20 Meq) 1,000 ml @ 60 mls/ hr [id number] IV Last administered on 06/16/16 23:15; Admin Dose 60 MLS/HR; Start 06/11/16 at 16:00 Hydromorphone HCl (Dilaudid INSULATION PROFESSIONAL) 1 MG/HR CONTINUOUS RATE 1... Q4PCA IV Last administered on 06/17/16 03:07; Admin Dose 6 MG; Start 06/12/16 at 21:05 Methadone HCl (Methadone Liq (Ped)) 2 mg Q6 PO Last administered on 06/17/16 06:09; Admin Dose 2 MG; Start 06/13/16 at 14:00 Diltiazem HCl (Cardizem) 60 mg Q6 PO Last administered on 06/17/16 00:40; Admin Dose 60 MG; Start 06/14/16 at 18:30 Metoprolol Tartrate (Lopressor) 50 mg BID PO Last administered on 06/16/16 21: 49; Admin Dose 50 MG; Start 06/15/16 at 11:30 Nitroglycerin (Nitroglycerin (Sl Tab) 0.4 Mg) 1 tab Q5M PRN SL ANGINA Last administered on 06/16/16 22:59; Admin Dose 1 TAB; Start 06/15/16 at 22:47 Methylprednisolone Sodium Succinate (Solu-Medrol) 40 mg Q12 IV Last administered on 06/16/16 21:46; Admin Dose 40 MG; Start 06/16/16 at 21:00 NAYELY LINTON NP Jun 17, 2016 09:07
[2016-06-17] MEDS: NITROGLYCERIN (SL) 0.4 MG TAB SL PRN (11:33)
--- NOTE | 2016-06-17 15:46 | CONS ---
Date/Time of Note Date/Time of Note DATE: 06/17/16 TIME: 15:35 Consult Date/Type/Reason Admit Date/Time Jun 10, 2016 at 01:43 Initial Consult Date 06/15/16 Type of Consultation: Pulm Ordering Provider: NAYELY LINTON GLOBAL MARKETING INTERN Subjective Transferred to tele. On high-flow NC. Appears more comfortable. Objective Vital Signs Date Time Temp Pulse Resp B/P Pulse Ox O2 Delivery O2 Flow Rate FiO2 06/17/16 14:06 100 40 06/17/16 12:06 108 06/17/16 11:25 97.9 25 119/78 06/17/16 01:30 High Flow 06/16/16 16:39 8.0 Intake and Output 06/16/16 06/16/16 06/17/16 15:00 23:00 07:00 Intake Total 1400 ml 1800 ml Output Total 1000 ml 1500 ml Balance 400 ml 300 ml HEENT: Neck supple; no JVD; no LAD CVS: RRR, S1 and S2 CHEST: Clear ABD: Soft, NT, + BS EXT: No c/c/e Results/Medications Result Diagram: 06/15/1671806/15/16718 Results 24 hrs Laboratory Tests Test 06/16/16 21:39 Bedside Glucose 96 Medications Current Medications Ondansetron HCl (Zofran Inj) 4 mg Q6H PRN IV NAUSEA AND/OR VOMITING Last administered on 06/16/16 17:30; Admin Dose 4 MG; Start 06/10/16 at 07:30 Acetaminophen (Tylenol Tab) 650 mg Q6H PRN PO PAIN LEVEL 1-3 OR FEVER Last administered on 06/16/16 22:50; Admin Dose 650 MG; Start 06/10/16 at 07:30 Famotidine (Pepcid Iv) 20 mg Q12 IV Last administered on 06/17/16 09:04; Admin Dose 20 MG; Start 06/10/16 at 09:00 Docusate Sodium (Colace) 100 mg Q12H PRN PO CONSTIPATION; Start 06/10/16 at 07: 30 Polyethylene Glycol (Miralax) 8.5 gm DAILY PRN PO CONSTIPATION; Start 06/10/16 at 07:30 Enoxaparin Sodium (Lovenox) 100 mg Q12 SC Last administered on 06/17/16 09:05 ; Admin Dose 100 MG; Start 06/10/16 at 09:00 Ferrous Sulfate 325 mg 325 mg BID PO Last administered on 06/17/16 09:04; Admin Dose 325 MG; Start 06/10/16 at 21:00 Potassium Chloride/Dextrose/ Sod Cl (D5-1/2ns + KCl 20 Meq) 1,000 ml @ 60 mls/ hr [id number] IV Last administered on 06/16/16 23:15; Admin Dose 60 MLS/HR; Start 06/11/16 at 16:00 Hydromorphone HCl (Dilaudid ROUTEMAN) 1 MG/HR CONTINUOUS RATE 1... Q4PCA IV Last administered on 06/17/16 09:28; Admin Dose 6 MG; Start 06/12/16 at 21:05 Methadone HCl (Methadone Liq (Ped)) 2 mg Q6 PO Last administered on 06/17/16 13:02; Admin Dose 2 MG; Start 06/13/16 at 14:00 Diltiazem HCl (Cardizem) 60 mg Q6 PO Last administered on 06/17/16 11:33; Admin Dose 60 MG; Start 06/14/16 at 18:30 Metoprolol Tartrate (Lopressor) 50 mg BID PO Last administered on 06/16/16 21: 49; Admin Dose 50 MG; Start 06/15/16 at 11:30 Nitroglycerin (Nitroglycerin (Sl Tab) 0.4 Mg) 1 tab Q5M PRN SL ANGINA Last administered on 06/17/16 11:33; Admin Dose 1 TAB; Start 06/15/16 at 22:47 Methylprednisolone Sodium Succinate (Solu-Medrol) 40 mg Q12 IV Last administered on 06/17/16 09:04; Admin Dose 40 MG; Start 06/16/16 at 21:00 Assessment/Plan Additional Assessment/Plan IMP: 1. 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 Pleural effusions 3. Hypoxemic respiratory insufficiency due to cancer and PE 4. History of deep venous thrombosis and pulmonary embolism 5. Tachycardia RECS: 1. Continue High-flow NC 2. Trial of systemic CS 3. Anticoagulation RYLAN JOSEPH MD Jun 17, 2016 15:45
[2016-06-17] MEDS: D5W-0.45 NACL + KCL 20 MEQ 1,000 ML IV SCH (15:57)
[2016-06-17] MEDS: LEVALBUTEROL (NEB) 0.63 MG/3 ML AMP HHN SCH (17:16)
[2016-06-17] MEDS: ONDANSETRON 4 MG INJ IV PRN (21:39)
[2016-06-18] VITALS (12 sets, daily range): BP systolic 99–112; BP diastolic 62–76; PULSE 82–100; RESP 16–20
[2016-06-18] MEDS: LEVALBUTEROL (NEB) 0.63 MG/3 ML AMP HHN SCH ×4 (00:35→23:24)
[2016-06-18] MEDS: HYDROmorphONE 0.2 MG/ML PCA IV SCH ×4 (02:37→19:45)
[2016-06-18] MEDS: DILTIAZEM 60 MG TAB PO SCH ×2 (02:40→06:19)
[2016-06-18] MEDS: METHADONE (1 MG/1 ML PO SYG) PO SCH ×4 (02:48→16:16)
[2016-06-18] MEDS: D5W-0.45 NACL + KCL 20 MEQ 1,000 ML IV SCH ×2 (02:48→19:42)
[2016-06-18] MEDS: FUROSEMIDE 20 MG TAB PO SCH ×2 (06:19→18:05)
[2016-06-18 06:24] LABS: BASOPHILS % 0.1 % (0.0-2.0); HEMATOCRIT 29.5 % (37.0-47.0); HEMOGLOBIN 9.8 g/dl (12.0-16.0); LYMPHOCYTES # 0.8 10^3/ul (0.8-2.9); MEAN CORPUSCULAR HEMOGLOBIN 26.5 pg (29.0-33.0); MEAN CORPUSCULAR HGB CONC 33.3 g/dl (32.0-37.0); MEAN CORPUSCULAR VOLUME 79.5 fl (82.0-101.0); MEAN PLATELET VOLUME 6.6 fl (7.4-10.4); MONOCYTE # 0.4 10^3/ul (0.3-0.9); MONOCYTES % 4.8 % (0.0-11.0); NEUTROPHILS % 85.1 % (39.0-77.0); PLATELET COUNT 753 10^3/UL (140-440); RED BLOOD COUNT 3.71 10^6/ul (4.20-5.40); RED CELL DISTRIBUTION WIDTH 20.8 % (11.5-14.5); UNCORRECTED WBC 8.2 10^3/ul (4.8-10.8); WHITE BLOOD COUNT 8.2 10^3/ul (4.8-10.8)
[2016-06-18 06:33] LABS: CONDITION 1; LH ANALYZER COMMENTS 1
[2016-06-18 06:36] LABS: POTASSIUM 3.9 mmol/L (3.5-5.1)
[2016-06-18 06:38] LABS: CREATININE 0.35 mg/dl (0.44-1.00)
[2016-06-18 06:39] LABS: CALCIUM 8.3 mg/dl (8.4-10.2)
[2016-06-18 06:47] LABS: MAGNESIUM 1.7 mg/dl (1.7-2.5); PHOSPHORUS 3.3 mg/dl (2.5-4.9)
[2016-06-18] MEDS: METOPROLOL 50 MG TAB PO SCH ×2 (09:00→21:00)
[2016-06-18] MEDS: FERROUS SULFATE (EC) 325 MG TAB PO SCH ×2 (09:18→21:12)
[2016-06-18] MEDS: FAMOTIDINE 20 MG INJ IV SCH ×2 (09:18→21:12)
[2016-06-18] MEDS: METHYLPREDNISOLONE 40 MG INJ IV SCH ×2 (09:18→21:12)
[2016-06-18] MEDS: ENOXAPARIN 100 MG/ML SYG SC SCH ×2 (09:19→21:18)
--- NOTE | 2016-06-18 11:08 | CONS ---
Date/Time of Note Date/Time of Note DATE: 06/18/16 TIME: 11:03 Assessment/Plan Assessment/Plan Additional Assessment/Plan Assessment and recommendations; 1. Patient with advanced gastric cancer with large volume centesis performed on the sixth of this month. 2. Bilateral pleural thickening in lower lobes. 3. Left superficial femoral vein DVT with PE. 4. Hypoxemia currently on high flow FiO2. Continue current treatment. Patient can be started on apixaban. Scheduled for [place] filter placement today. Based upon CT imaging of the chest, I could not appreciate evidence of any extensive metastatic disease. Continue Solu- Medrol for now. Consultation Date/Type/Reason Admit Date/Time Jun 10, 2016 at 01:43 Initial Consult Date 06/15/16 Type of Consultation: Pulm Referring Provider: NAYELY LINTON NP 24 HR Interval Summary Free Text/Dictation Patient condition is stable. Denies any chest pain, shortness of breath is stable. Denies any cough, hemoptysis, sputum production. Does complain of occasional nausea. Without any vomiting. General examination; young lady, currently in no distress awake and alert. Exam/Review of Systems Vital Signs Vitals Vital Signs Date Time Temp Pulse Resp B/P Pulse Ox O2 Delivery O2 Flow Rate FiO2 06/18/16 09:33 82 06/18/16 09:27 98.2 16 104/70 99 High Flow 06/18/16 07:49 40 06/16/16 16:39 8.0 Intake and Output 06/17/16 06/17/16 06/18/16 15:00 23:00 07:00 Intake Total 1920 ml 460 ml Output Total 800 ml Balance 1120 ml 460 ml Exam HEENT examination; supple neck, no JVD. Pharynx is clear. Patient has good dentition. Pupils are midsize and reactive to light bilaterally. No neck masses. No thyromegaly. Chest examination; minimally decreased breath sounds right lower lobe otherwise clear. S1-S2 audible. No murmurs. Regular rhythm. Abdomen examination; there is mild epigastric tenderness. Abdomen is nondistended. Bowel sounds audible. Extremity examination; no peripheral edema. SHIPPING MANAGER examination no focal deficit. Results Result Diagram: 06/18/16 0518 06/18/16 0518 Results 24 hrs Laboratory Tests Test 06/18/16 05:18 Anion Gap 11 Basophils # 0.0 Basophils % 0.1 Blood Morphology Comment Blood Urea Nitrogen 4 L Calcium Level 8.3 L Carbon Dioxide Level 28 Chloride Level 99 Creatinine 0.35 L Eosinophils # 0.0 Eosinophils % 0.0 Glucose Level 123 Hematocrit 29.5 L Hemoglobin 9.8 L Lymphocytes # 0.8 Lymphocytes % 10.0 L Magnesium Level 1.7 Mean Corpuscular Hemoglobin 26.5 L Mean Corpuscular Hemoglobin Concent 33.3 Mean Corpuscular Volume 79.5 L Mean Platelet Volume 6.6 #L Monocytes # 0.4 Monocytes % 4.8 Neutrophils # 7.0 Neutrophils % 85.1 H Nucleated Red Blood Cells # 0.0 Nucleated Red Blood Cells % 0.0 Phosphorus Level 3.3 Platelet Count 753 H Potassium Level 3.9 Red Blood Count 3.71 L Red Cell Distribution Width 20.8 H Sodium Level 134 L White Blood Count 8.2 # Medications Medications Current Medications Ondansetron HCl (Zofran Inj) 4 mg Q6H PRN IV NAUSEA AND/OR VOMITING Last administered on 06/17/16 21:39; Admin Dose 4 MG; Start 06/10/16 at 07:30 Acetaminophen (Tylenol Tab) 650 mg Q6H PRN PO PAIN LEVEL 1-3 OR FEVER Last administered on 06/16/16 22:50; Admin Dose 650 MG; Start 06/10/16 at 07:30 Famotidine (Pepcid Iv) 20 mg Q12 IV Last administered on 06/18/16 09:18; Admin Dose 20 MG; Start 06/10/16 at 09:00 Docusate Sodium (Colace) 100 mg Q12H PRN PO CONSTIPATION; Start 06/10/16 at 07: 30 Polyethylene Glycol (Miralax) 8.5 gm DAILY PRN PO CONSTIPATION; Start 06/10/16 at 07:30 Enoxaparin Sodium (Lovenox) 100 mg Q12 SC Last administered on 06/18/16 09:19 ; Admin Dose 100 MG; Start 06/10/16 at 09:00 Ferrous Sulfate 325 mg 325 mg BID PO Last administered on 06/18/16 09:18; Admin Dose 325 MG; Start 06/10/16 at 21:00 Potassium Chloride/Dextrose/ Sod Cl (D5-1/2ns + KCl 20 Meq) 1,000 ml @ 60 mls/ hr [id number] IV Last administered on 06/18/16 02:48; Admin Dose 60 MLS/HR; Start 06/11/16 at 16:00 Hydromorphone HCl (Dilaudid TRAFFIC SIGN ERECTION SUPERVISOR) 1 MG/HR CONTINUOUS RATE 1... Q4PCA IV Last administered on 06/18/16 06:48; Admin Dose 6 MG; Start 06/12/16 at 21:05 Methadone HCl (Methadone Liq (Ped)) 2 mg Q6 PO Last administered on 06/18/16 06:19; Admin Dose 2 MG; Start 06/13/16 at 14:00 Diltiazem HCl (Cardizem) 60 mg Q6 PO Last administered on 06/18/16 06:19; Admin Dose 60 MG; Start 06/14/16 at 18:30 Metoprolol Tartrate (Lopressor) 50 mg BID PO Last administered on 06/17/16 20: 09; Admin Dose 50 MG; Start 06/15/16 at 11:30 Nitroglycerin (Nitroglycerin (Sl Tab) 0.4 Mg) 1 tab Q5M PRN SL ANGINA Last administered on 06/17/16 11:33; Admin Dose 1 TAB; Start 06/15/16 at 22:47 Methylprednisolone Sodium Succinate (Solu-Medrol) 40 mg Q12 IV Last administered on 06/18/16 09:18; Admin Dose 40 MG; Start 06/16/16 at 21:00 TITUS JO Jun 18, 2016 11:08
[2016-06-18] MEDS ORDERED: IODIXANOL LOCM 100 ML BTL ONE (11:45)
[2016-06-18] MEDS ORDERED: LIDOCAINE 1% (MDV) 20 ML INJ ONE (11:45)
[2016-06-18] MEDS ORDERED: MIDAZOLAM 1 MG/ML 2 ML INJ ONE (11:45)
[2016-06-18] MEDS ORDERED: HEPARIN 1000 UNITS/NS (A-LINE) 1,000 ML ONE (11:45)
[2016-06-18] MEDS ORDERED: FENTAnyl 50 MCG/ML VIAL ONE (11:46)
--- NOTE | 2016-06-18 13:19 | PN ---
Date/Time of Note Date/Time of Note DATE: 06/18/16 TIME: 13:17 Assessment/Plan Lines/Catheters IV Catheter Type (from [facility]): Peripheral IV [place] in Place (from [facility]): No Assessment/Plan Chief Complaint/Hosp Course -Left lower extremity deep vein thrombosis and pulmonary embolism in bilateral pulmonary arteries: It seems that the patient's metastatic stomach cancer is the likely the cause of her being hypercoagulable and developing deep vein thrombosis and pulmonary embolism. Despite her being on prophylactic anticoagulation, she has developed pulmonary embolism. -Will plan for inferior vena cava filter placement, in light of these findings. However, the patient is not a candidate for endovascular interventions, such as thrombolysis or thrombectomy, as the patient's prognosis seems to be poor -Optimize vascular status. -Continue with her anticoagulation for now. -Will plan to place IVC filter in the coming days as the patient has agreed and multidisciplinary team feels it is necessary given her poor prognosis -Elevate left lower extremity. -Discussed findings, plan, and management with the patient and family at the bedside with a certified distribution transformer assembler and they understand. -Thank you for allowing us to partake in the care of your patient. Please call with any questions. Problems: Subjective 24 Hr Interval Summary no new vascular events overnight, pt still requiring high oxygen support Exam/Review of Systems Vital Signs Vitals Vital Signs Date Time Temp Pulse Resp B/P Pulse Ox O2 Delivery O2 Flow Rate FiO2 06/18/16 12:30 85 06/18/16 12:10 98.3 20 99/65 99 06/18/16 09:27 High Flow 06/18/16 07:49 40 06/16/16 16:39 8.0 Intake and Output 06/17/16 06/17/16 06/18/16 15:00 23:00 07:00 Intake Total 1920 ml 460 ml Output Total 800 ml Balance 1120 ml 460 ml Exam Free Text/Dictation GENERAL: Alert and oriented x3. PULMONARY: Coarse breath sounds bilaterally, crackles at the bases. CARDIOVASCULAR: S1, S2 present. ABDOMEN: Soft, nontender, nondistended. Bowel sounds positive. Truncal obesity. EXTREMITIES: Palpable femoral pulses, palpable pedal pulses. Motor, sensory intact. Capillary refill 2 to 3 seconds. Edema 1+ of the left lower extremity. Results Result Diagram: 06/18/1651706/18/16517 RACHID CRUZ MD Jun 18, 2016 13:19
--- NOTE | 2016-06-18 13:32 | CONS ---
Date/Time of Note Date/Time of Note DATE: 06/18/16 TIME: 13:30 Assessment/Plan Assessment/Plan Additional Assessment/Plan Tachycardia Pulmonary emboli Stomach cancer with metastases DVT Preserved ejection fraction Pleural effusion and abdominal ascites -Heart rate trend is improved, change Cardizem to twice daily dosing, maintain potassium above 4.0 and magnesium above 2.0. Consultation Date/Type/Reason Admit Date/Time Jun 10, 2016 at 01:43 Type of Consultation: cv Referring Provider: NAYELY LINTON SCOOTER MECHANIC 24 HR Interval Summary Free Text/Dictation Shortness of breath continues to improve. Denies any further palpitations or dizziness Exam/Review of Systems Vital Signs Vitals Vital Signs Date Time Temp Pulse Resp B/P Pulse Ox O2 Delivery O2 Flow Rate FiO2 06/18/16 12:30 85 06/18/16 12:10 98.3 20 99/65 99 06/18/16 09:27 High Flow 06/18/16 07:49 40 06/16/16 16:39 8.0 Intake and Output 06/17/16 06/17/16 06/18/16 15:00 23:00 07:00 Intake Total 1920 ml 460 ml Output Total 800 ml Balance 1120 ml 460 ml Exam On high flow oxygen Constitutional: alert, oriented Head: normocephalic Respiratory: other (Coarse breath sounds bilaterally, no wheezing) Cardiovascular: other (S1-S2 heard), regular rate and rhythm Gastrointestinal: bowel sounds, non-tender, soft Extremities: edema (Trace) Results Result Diagram: 06/18/1618 06/18/16 0518 Results 24 hrs Laboratory Tests Test 06/18/16 05:18 Anion Gap 11 Basophils # 0.0 Basophils % 0.1 Blood Morphology Comment Blood Urea Nitrogen 4 L Calcium Level 8.3 L Carbon Dioxide Level 28 Chloride Level 99 Creatinine 0.35 L Eosinophils # 0.0 Eosinophils % 0.0 Glucose Level 123 Hematocrit 29.5 L Hemoglobin 9.8 L Lymphocytes # 0.8 Lymphocytes % 10.0 L Magnesium Level 1.7 Mean Corpuscular Hemoglobin 26.5 L Mean Corpuscular Hemoglobin Concent 33.3 Mean Corpuscular Volume 79.5 L Mean Platelet Volume 6.6 #L Monocytes # 0.4 Monocytes % 4.8 Neutrophils # 7.0 Neutrophils % 85.1 H Nucleated Red Blood Cells # 0.0 Nucleated Red Blood Cells % 0.0 Phosphorus Level 3.3 Platelet Count 753 H Potassium Level 3.9 Red Blood Count 3.71 L Red Cell Distribution Width 20.8 H Sodium Level 134 L White Blood Count 8.2 # Medications Medications Current Medications Ondansetron HCl (Zofran Inj) 4 mg Q6H PRN IV NAUSEA AND/OR VOMITING Last administered on 06/17/16 21:39; Admin Dose 4 MG; Start 06/10/16 at 07:30 Acetaminophen (Tylenol Tab) 650 mg Q6H PRN PO PAIN LEVEL 1-3 OR FEVER Last administered on 06/16/16 22:50; Admin Dose 650 MG; Start 06/10/16 at 07:30 Famotidine (Pepcid Iv) 20 mg Q12 IV Last administered on 06/18/16 09:18; Admin Dose 20 MG; Start 06/10/16 at 09:00 Docusate Sodium (Colace) 100 mg Q12H PRN PO CONSTIPATION; Start 06/10/16 at 07: 30 Polyethylene Glycol (Miralax) 8.5 gm DAILY PRN PO CONSTIPATION; Start 06/10/16 at 07:30 Enoxaparin Sodium (Lovenox) 100 mg Q12 SC Last administered on 06/18/16 09:19 ; Admin Dose 100 MG; Start 06/10/16 at 09:00 Ferrous Sulfate 325 mg 325 mg BID PO Last administered on 06/18/16 09:18; Admin Dose 325 MG; Start 06/10/16 at 21:00 Potassium Chloride/Dextrose/ Sod Cl (D5-1/2ns + KCl 20 Meq) 1,000 ml @ 60 mls/ hr [id number] IV Last administered on 06/18/16 02:48; Admin Dose 60 MLS/HR; Start 06/11/16 at 16:00 Hydromorphone HCl (Dilaudid BUSINESS RECORDS MANAGER) 1 MG/HR CONTINUOUS RATE 1... Q4PCA IV Last administered on 06/18/16 11:04; Admin Dose 6 MG; Start 06/12/16 at 21:05 Methadone HCl (Methadone Liq (Ped)) 2 mg Q6 PO Last administered on 06/18/16 06:19; Admin Dose 2 MG; Start 06/13/16 at 14:00 Diltiazem HCl (Cardizem) 60 mg Q6 PO Last administered on 06/18/16 06:19; Admin Dose 60 MG; Start 06/14/16 at 18:30 Metoprolol Tartrate (Lopressor) 50 mg BID PO Last administered on 06/17/16 20: 09; Admin Dose 50 MG; Start 06/15/16 at 11:30 Nitroglycerin (Nitroglycerin (Sl Tab) 0.4 Mg) 1 tab Q5M PRN SL ANGINA Last administered on 06/17/16 11:33; Admin Dose 1 TAB; Start 06/15/16 at 22:47 Methylprednisolone Sodium Succinate (Solu-Medrol) 40 mg Q12 IV Last administered on 06/18/16 09:18; Admin Dose 40 MG; Start 06/16/16 at 21:00 José Baez DO Jun 18, 2016 13:32
[2016-06-18] MEDS ORDERED: POTASSIUM CHLORIDE (SR) 10 MEQ TAB PO ONE (14:00)
[2016-06-18] MEDS ORDERED: MAGNESIUM SULFATE 3 GM in SOD CHLORIDE 0.9% 100 ML IVPB ONE (14:00)
--- NOTE | 2016-06-18 14:30 | CONS ---
Date/Time of Note Date/Time of Note DATE: 06/18/16 TIME: 14:27 Assessment/Plan Assessment/Plan Chief Complaint/Hosp Course 36 yo female with metastatic gastric cancer wh ohas failed multiple lines of chemotherapy who now presents with shortness of breath secondary to pulmonary embolism 1. Metastatic gastric cancer - pt has failed multiple lines of chemotherapy and is no longer a candidate for chemotherapy given her frail state - She carries a very poor prognosis. I would recommend hospice evaluation 2. Left lower extremity deep vein thrombosis and pulmonary embolism in bilateral pulmonary arteries - agree with plan for IVC filter - agree with Lovenox 100mg SQ q 12 Problems: Consultation Date/Type/Reason Admit Date/Time Jun 10, 2016 at 01:43 Initial Consult Date 06/15/16 Type of Consultation: Hematology Reason for Consultation gastric cancer Referring Provider: NAYELY LINTON NP 24 HR Interval Summary Free Text/Dictation no acute overnight events Exam/Review of Systems Vital Signs Vitals Vital Signs Date Time Temp Pulse Resp B/P Pulse Ox O2 Delivery O2 Flow Rate FiO2 06/18/16 12:30 85 06/18/16 12:10 98.3 20 99/65 99 06/18/16 09:27 High Flow 06/18/16 07:49 40 06/16/16 16:39 8.0 Intake and Output 06/17/16 06/17/16 06/18/16 15:00 23:00 07:00 Intake Total 1920 ml 460 ml Output Total 800 ml Balance 1120 ml 460 ml Exam Constitutional: alert, frail, oriented Psych: depression, no complaints Head: normocephalic Eyes: nl conjunctiva ENMT: nl external ears & nose Neck: non-tender, supple Respiratory: clear to auscultation Cardiovascular: nl pulses, regular rate and rhythm Gastrointestinal: soft Musculoskeletal: nl extremities to inspection, nl gait and stance Results Result Diagram: 06/18/1618 06/18/1618 Results 24 hrs Laboratory Tests Test 06/18/16 05:18 Anion Gap 11 Basophils # 0.0 Basophils % 0.1 Blood Morphology Comment Blood Urea Nitrogen 4 L Calcium Level 8.3 L Carbon Dioxide Level 28 Chloride Level 99 Creatinine 0.35 L Eosinophils # 0.0 Eosinophils % 0.0 Glucose Level 123 Hematocrit 29.5 L Hemoglobin 9.8 L Lymphocytes # 0.8 Lymphocytes % 10.0 L Magnesium Level 1.7 Mean Corpuscular Hemoglobin 26.5 L Mean Corpuscular Hemoglobin Concent 33.3 Mean Corpuscular Volume 79.5 L Mean Platelet Volume 6.6 #L Monocytes # 0.4 Monocytes % 4.8 Neutrophils # 7.0 Neutrophils % 85.1 H Nucleated Red Blood Cells # 0.0 Nucleated Red Blood Cells % 0.0 Phosphorus Level 3.3 Platelet Count 753 H Potassium Level 3.9 Red Blood Count 3.71 L Red Cell Distribution Width 20.8 H Sodium Level 134 L White Blood Count 8.2 # Medications Medications Current Medications Ondansetron HCl (Zofran Inj) 4 mg Q6H PRN IV NAUSEA AND/OR VOMITING Last administered on 06/17/16 21:39; Admin Dose 4 MG; Start 06/10/16 at 07:30 Acetaminophen (Tylenol Tab) 650 mg Q6H PRN PO PAIN LEVEL 1-3 OR FEVER Last administered on 06/16/16 22:50; Admin Dose 650 MG; Start 06/10/16 at 07:30 Famotidine (Pepcid Iv) 20 mg Q12 IV Last administered on 06/18/16 09:18; Admin Dose 20 MG; Start 06/10/16 at 09:00 Docusate Sodium (Colace) 100 mg Q12H PRN PO CONSTIPATION; Start 06/10/16 at 07: 30 Polyethylene Glycol (Miralax) 8.5 gm DAILY PRN PO CONSTIPATION; Start 06/10/16 at 07:30 Enoxaparin Sodium (Lovenox) 100 mg Q12 SC Last administered on 06/18/16 09:19 ; Admin Dose 100 MG; Start 06/10/16 at 09:00 Ferrous Sulfate 325 mg 325 mg BID PO Last administered on 06/18/16 09:18; Admin Dose 325 MG; Start 06/10/16 at 21:00 Potassium Chloride/Dextrose/ Sod Cl (D5-1/2ns + KCl 20 Meq) 1,000 ml @ 60 mls/ hr [id number] IV Last administered on 06/18/16 02:48; Admin Dose 60 MLS/HR; Start 06/11/16 at 16:00 Hydromorphone HCl (Dilaudid PULVERIZER MILL OPERATOR) 1 MG/HR CONTINUOUS RATE 1... Q4PCA IV Last administered on 06/18/16 11:04; Admin Dose 6 MG; Start 06/12/16 at 21:05 Methadone HCl (Methadone Liq (Ped)) 2 mg Q6 PO Last administered on 06/18/16 06:19; Admin Dose 2 MG; Start 06/13/16 at 14:00 Metoprolol Tartrate (Lopressor) 50 mg BID PO Last administered on 06/17/16 20: 09; Admin Dose 50 MG; Start 06/15/16 at 11:30 Nitroglycerin (Nitroglycerin (Sl Tab) 0.4 Mg) 1 tab Q5M PRN SL ANGINA Last administered on 06/17/16 11:33; Admin Dose 1 TAB; Start 06/15/16 at 22:47 Methylprednisolone Sodium Succinate 40 mg 40 mg Q12 IV Last administered on 09:18; Admin Dose 40 MG; Start 06/16/16 at 21:00 Magnesium Sulfate/ Sodium Chloride (Magnesium Sulfate/NS) 106 ml @ 35.333 mls/ hr ONCE ONCE IVPB ; Start 06/18/16 at 14:00; Stop 06/18/16 at 16:59 Diltiazem HCl (Cardizem Cd) 120 mg BID PO ; Start 06/18/16 at 21:00 LISSET BABIN M.D. Jun 18, 2016 14:30
--- NOTE | 2016-06-18 14:50 | PN ---
Date/Time of Note Date/Time of Note DATE: 06/18/16 TIME: 14:45 Assessment/Plan VTE Prophylaxis VTE Prophylaxis Intervention: LMWH Lines/Catheters IV Catheter Type (from [facility]): Peripheral IV Urinary Cath still in place: No Assessment/Plan Chief Complaint/Hosp Course Assessment and plan 1. Pulmonary embolism. Continue on anticoagulation. Continue on O2. 2. Left distal superficial femoral vein DVT. Continue anticoagulation. Vascular surgeon is following. No recommendation for IVC filter given patient's advanced malignancy and hypercoagulability secondary to underlying malignancy 3. Abdominal pain with ascites likely malignant in origin. Patient did receive paracentesis. We'll provide as needed 4. History of stomach cancer with malignant ascites. Palliative care physician following. Oncologist following. No plan for further chemotherapy given patient' s health condition. Follow-up with oncologist recommendations. 5. Iron deficiency anemia. Continue iron supplement 6. Bilateral pleural effusions. Continue on diuretic 7. Acute respiratory failure. Continue insulin bronchodilators. Continue pulmonology recommendations 8. GERD prophylaxis: H2 surinder Disposition and plan:palliative care physician is following. We'll need to readdress patient's goals of care. Overall prognosis is poor. We'll discuss with patient and family consideration for possible hospice Discussed plan of care with Dr. Banda Problems: Subjective 24 Hr Interval Summary Free Text/Dictation Seen on high flow. Still with some minimal abdominal discomfort. Exam/Review of Systems Vital Signs Vitals Vital Signs Date Time Temp Pulse Resp B/P Pulse Ox O2 Delivery O2 Flow Rate FiO2 06/18/16 12:30 85 06/18/16 12:10 98.3 20 99/65 99 06/18/16 09:27 High Flow 06/18/16 07:49 40 06/16/16 16:39 8.0 Intake and Output 06/17/16 06/17/16 06/18/16 15:00 23:00 07:00 Intake Total 1920 ml 460 ml Output Total 800 ml Balance 1120 ml 460 ml Results Result Diagram: 06/18/1618 06/18/16 0518 Results 24 hrs Laboratory Tests Test 06/18/16 05:18 Anion Gap 11 Basophils # 0.0 Basophils % 0.1 Blood Morphology Comment Blood Urea Nitrogen 4 L Calcium Level 8.3 L Carbon Dioxide Level 28 Chloride Level 99 Creatinine 0.35 L Eosinophils # 0.0 Eosinophils % 0.0 Glucose Level 123 Hematocrit 29.5 L Hemoglobin 9.8 L Lymphocytes # 0.8 Lymphocytes % 10.0 L Magnesium Level 1.7 Mean Corpuscular Hemoglobin 26.5 L Mean Corpuscular Hemoglobin Concent 33.3 Mean Corpuscular Volume 79.5 L Mean Platelet Volume 6.6 #L Monocytes # 0.4 Monocytes % 4.8 Neutrophils # 7.0 Neutrophils % 85.1 H Nucleated Red Blood Cells # 0.0 Nucleated Red Blood Cells % 0.0 Phosphorus Level 3.3 Platelet Count 753 H Potassium Level 3.9 Red Blood Count 3.71 L Red Cell Distribution Width 20.8 H Sodium Level 134 L White Blood Count 8.2 # Medications Medications Current Medications Ondansetron HCl (Zofran Inj) 4 mg Q6H PRN IV NAUSEA AND/OR VOMITING Last administered on 06/17/16 21:39; Admin Dose 4 MG; Start 06/10/16 at 07:30 Acetaminophen (Tylenol Tab) 650 mg Q6H PRN PO PAIN LEVEL 1-3 OR FEVER Last administered on 06/16/16 22:50; Admin Dose 650 MG; Start 06/10/16 at 07:30 Famotidine (Pepcid Iv) 20 mg Q12 IV Last administered on 06/18/16 09:18; Admin Dose 20 MG; Start 06/10/16 at 09:00 Docusate Sodium (Colace) 100 mg Q12H PRN PO CONSTIPATION; Start 06/10/16 at 07: 30 Polyethylene Glycol (Miralax) 8.5 gm DAILY PRN PO CONSTIPATION; Start 06/10/16 at 07:30 Enoxaparin Sodium (Lovenox) 100 mg Q12 SC Last administered on 06/18/16 09:19 ; Admin Dose 100 MG; Start 06/10/16 at 09:00 Ferrous Sulfate 325 mg 325 mg BID PO Last administered on 06/18/16 09:18; Admin Dose 325 MG; Start 06/10/16 at 21:00 Potassium Chloride/Dextrose/ Sod Cl (D5-1/2ns + KCl 20 Meq) 1,000 ml @ 60 mls/ hr [id number] IV Last administered on 06/18/16 02:48; Admin Dose 60 MLS/HR; Start 06/11/16 at 16:00 Hydromorphone HCl (Dilaudid RESIDENCE MANAGER) 1 MG/HR CONTINUOUS RATE 1... Q4PCA IV Last administered on 06/18/16 11:04; Admin Dose 6 MG; Start 06/12/16 at 21:05 Methadone HCl (Methadone Liq (Ped)) 2 mg Q6 PO Last administered on 06/18/16 06:19; Admin Dose 2 MG; Start 06/13/16 at 14:00 Metoprolol Tartrate (Lopressor) 50 mg BID PO Last administered on 06/17/16 20: 09; Admin Dose 50 MG; Start 06/15/16 at 11:30 Nitroglycerin (Nitroglycerin (Sl Tab) 0.4 Mg) 1 tab Q5M PRN SL ANGINA Last administered on 06/17/16 11:33; Admin Dose 1 TAB; Start 06/15/16 at 22:47 Methylprednisolone Sodium Succinate 40 mg 40 mg Q12 IV Last administered on 09:18; Admin Dose 40 MG; Start 06/16/16 at 21:00 Magnesium Sulfate/ Sodium Chloride (Magnesium Sulfate/NS) 106 ml @ 35.333 mls/ hr ONCE ONCE IVPB ; Start 06/18/16 at 14:00; Stop 06/18/16 at 16:59 Diltiazem HCl (Cardizem Cd) 120 mg BID PO ; Start 06/18/16 at 21:00 CARMEN BHATTI Jun 18, 2016 14:49 CARMEN BHATTI Jun 18, 2016 14:49
--- NOTE | 2016-06-18 16:23 | RADRPT ---
PROCEDURE: XR Chest. CLINICAL INDICATION: Shortness of breath. TECHNIQUE: Single frontal view of the chest was obtained COMPARISON: Chest x-ray 06/13/2016 10:58 a.m. FINDINGS: There are bilateral pleural effusions. There is compressive atelectasis in the bases of the lungs w ith [employer] plate-like densities. Monitoring electrodes are draped across the chest. The bony elements are unremarkable. IMPRESSION: 1. There are bilateral pleural effusions with plate-like areas of atelectasis in the bases of the josé ngs and compressive atelectasis in the right left lower lung daniels. The right lower lobe infiltrat e associated with these changes cannot be excluded. These findings are little changed compared to 0 06/13/2016. RPTAT:AAJJ Physician Teresa Date Time Electronically viewed and signed by Sabino Avilez Physician on 06/18/2016 16:23 CAROLYN/
[2016-06-18] MEDS: DILTIAZEM (CD) 120 MG CAP PO SCH (21:00)
[2016-06-19] VITALS (11 sets, daily range): BP systolic 97–119; BP diastolic 66–86; PULSE 76–93; RESP 20
[2016-06-19] MEDS: METHADONE (1 MG/1 ML PO SYG) PO SCH ×4 (00:26→17:18)
[2016-06-19] MEDS: HYDROmorphONE 0.2 MG/ML PCA IV SCH ×6 (00:33→22:31)
[2016-06-19] MEDS: FUROSEMIDE 20 MG TAB PO SCH ×2 (05:25→17:18)
[2016-06-19] MEDS: D5W-0.45 NACL + KCL 20 MEQ 1,000 ML IV SCH ×2 (07:20→17:22)
[2016-06-19] MEDS: LEVALBUTEROL (NEB) 0.63 MG/3 ML AMP HHN SCH ×2 (08:13→15:49)
[2016-06-19] MEDS: ONDANSETRON 4 MG INJ IV PRN (08:43)
[2016-06-19] MEDS: FAMOTIDINE 20 MG INJ IV SCH ×2 (08:44→21:24)
[2016-06-19] MEDS: METHYLPREDNISOLONE 40 MG INJ IV SCH ×2 (08:45→21:24)
[2016-06-19] MEDS: FERROUS SULFATE (EC) 325 MG TAB PO SCH ×2 (08:48→21:24)
[2016-06-19] MEDS: ENOXAPARIN 100 MG/ML SYG SC SCH (08:48)
[2016-06-19] MEDS: METOPROLOL 50 MG TAB PO SCH ×2 (08:50→21:28)
[2016-06-19] MEDS: DILTIAZEM (CD) 120 MG CAP PO SCH ×2 (08:50→21:28)
--- NOTE | 2016-06-19 09:51 | PN ---
DATE: 06/19/2016 I have had an extensive conversation with Ana this morning through the portable computerized tele oracle technical architect. I have reviewed her medical records with her and listened to her goals of care. She h as changed her code status to DO NOT RESUSCITATE during my last conversation with her, and at that t cisco she decided that she would not want to pursue any further aggressive intervention, but wanted to go home. I confirmed that with her today, I explained that I believe that hospice would be in her best interest at this time and that she would benefit from hospice in giving a higher level of care and the support that both she and her family would need and deserve. She has agreed to this. I gita l make the appropriate referral after speaking with her primary careers adviser, . Dictated By: EPHRAIM PHELPS MD, LP/CAROL Conf#: [id number] DID#: [id number]
--- NOTE | 2016-06-19 10:54 | PN ---
Date/Time of Note Date/Time of Note DATE: 06/19/16 TIME: 10:46 Assessment/Plan VTE Prophylaxis VTE Prophylaxis Intervention: LMWH Lines/Catheters IV Catheter Type (from [facility] Peripheral IV Urinary Cath still in place: No Assessment/Plan Chief Complaint/Hosp Course Assessment and plan 1. Pulmonary embolism. Continue on anticoagulation. Continue on O2. 2. Left distal superficial femoral vein DVT. Continue anticoagulation. Vascular surgeon is following. No recommendation for IVC filter given patient's advanced malignancy and hypercoagulability secondary to underlying malignancy 3. Abdominal pain with ascites likely malignant in origin. Patient did receive paracentesis. We'll provide as needed 4. History of stomach cancer with malignant ascites. Palliative care physician following. Oncologist following. No plan for further chemotherapy given patient' s health condition. Follow-up with oncologist recommendations. We'll refill discussed with patient calls of care 5. Iron deficiency anemia. Continue iron supplement 6. Bilateral pleural effusions. Continue on diuretic 7. Acute respiratory failure. Continue insulin bronchodilators. Continue pulmonology recommendations 8. GERD prophylaxis: H2 surinder Disposition and plan:Palliative care physician following. When ready for discharge, plan for home with hospice. Follow up with belt knife feeder recommendations. Remains on hi-derik. d/c when cleared by consultants Discussed plan of care with Dr. Banda Problems: Subjective 24 Hr Interval Summary Free Text/Dictation Remains on high flow. Still with reported shortness of breath Exam/Review of Systems Vital Signs Vitals Vital Signs Date Time Temp Pulse Resp B/P Pulse Ox O2 Delivery O2 Flow Rate FiO2 06/19/16 08:54 93 06/19/16 08:14 20 96 30 06/19/16 07:28 98.2 117/86 06/18/16 09:27 High Flow 06/16/16 16:39 8.0 Intake and Output 06/18/16 06/18/16 06/19/16 15:00 23:00 07:00 Intake Total 600 ml 820 ml 990 ml Output Total 1200 ml 500 ml Balance -600 ml 820 ml 490 ml Exam General: No acute signs or symptoms of distress Eyes: pupils equal round, Anicteric sclera Neck: Supple nontender, no JVD Cardiac: S1, S2 auscultated, regular rhythm and rate Pulmonary: Diminished bilaterally GI: Protuberant Extremities: Edema bilateral lower extremities Skin: Clean dry and intact Neurologic: Alert to person place and time and situation Results Result Diagram: 06/18/1651706/18/16517 Medications Medications Current Medications Ondansetron HCl (Zofran Inj) 4 mg Q6H PRN IV NAUSEA AND/OR VOMITING Last administered on 06/19/16 08:43; Admin Dose 4 MG; Start 06/10/16 at 07:30 Acetaminophen (Tylenol Tab) 650 mg Q6H PRN PO PAIN LEVEL 1-3 OR FEVER Last administered on 06/16/16 22:50; Admin Dose 650 MG; Start 06/10/16 at 07:30 Famotidine (Pepcid Iv) 20 mg Q12 IV Last administered on 06/19/16 08:44; Admin Dose 20 MG; Start 06/10/16 at 09:00 Docusate Sodium (Colace) 100 mg Q12H PRN PO CONSTIPATION; Start 06/10/16 at 07: 30 Polyethylene Glycol (Miralax) 8.5 gm DAILY PRN PO CONSTIPATION; Start 06/10/16 at 07:30 Enoxaparin Sodium (Lovenox) 100 mg Q12 SC Last administered on 06/19/16 08:48 ; Admin Dose 100 MG; Start 06/10/16 at 09:00 Ferrous Sulfate 325 mg 325 mg BID PO Last administered on 06/19/16 08:48; Admin Dose 325 MG; Start 06/10/16 at 21:00 Potassium Chloride/Dextrose/ Sod Cl (D5-1/2ns + KCl 20 Meq) 1,000 ml @ 60 mls/ hr [id number] IV Last administered on 06/18/16 19:42; Admin Dose 60 MLS/HR; Start 06/11/16 at 16:00 Hydromorphone HCl (Dilaudid ADMIN DIR) 1 MG/HR CONTINUOUS RATE 1... Q4PCA IV Last administered on 06/19/16 10:14; Admin Dose 6 MG; Start 06/12/16 at 21:05 Methadone HCl (Methadone Liq (Ped)) 2 mg Q6 PO Last administered on 06/19/16 05:25; Admin Dose 2 MG; Start 06/13/16 at 14:00 Metoprolol Tartrate (Lopressor) 50 mg BID PO Last administered on 2/14/17at 08: 50; Admin Dose 50 MG; Start 06/15/16 at 11:30 Nitroglycerin (Nitroglycerin (Sl Tab) 0.4 Mg) 1 tab Q5M PRN SL ANGINA Last administered on 06/17/16 11:33; Admin Dose 1 TAB; Start 06/15/16 at 22:47 Methylprednisolone Sodium Succinate (Solu-Medrol) 40 mg Q12 IV Last administered on 06/19/16 08:45; Admin Dose 40 MG; Start 06/16/16 at 21:00 Diltiazem HCl (Cardizem Cd) 120 mg BID PO Last administered on 06/19/16 08:50 ; Admin Dose 120 MG; Start 06/18/16 at 21:00 CARMEN BHATTI Jun 19, 2016 10:54
--- NOTE | 2016-06-19 11:51 | CONS ---
Date/Time of Note Date/Time of Note DATE: 06/19/16 TIME: 11:48 Assessment/Plan Assessment/Plan Additional Assessment/Plan Assessment and recommendations; next 1. Patient with advanced gastric cancer with ascites status post large volume paracentesis without any evidence of recurrence. Next 2. Right lower lobe pleural thickening. Next 3. DVT and PE. 4. Hypoxemia. Continue current treatment. Discontinue Lovenox. Start the patient on apixaban 10 mg twice daily for 1 week and then 5 mg twice daily thereafter for the remainder of patient's life. administrative assistant data entry was made after talking to the pharmacist as would not enter the dosing on the computer. Consultation Date/Type/Reason Admit Date/Time Jun 10, 2016 at 01:43 Initial Consult Date 06/15/16 Type of Consultation: Pulmonary Referring Provider: NAYELY ILNTON NP 24 HR Interval Summary Free Text/Dictation Patient condition is stable. Denies any shortness of breath. Any abdominal pain, complains of occasional nausea without any vomiting. Denies any fever chills. General examination; young lady, awake alert currently in no distress. Exam/Review of Systems Vital Signs Vitals Vital Signs Date Time Temp Pulse Resp B/P Pulse Ox O2 Delivery O2 Flow Rate FiO2 06/19/16 11:02 98.2 79 119/86 100 06/19/16 08:14 20 30 06/18/16 09:27 High Flow 06/16/16 16:39 8.0 Intake and Output 06/18/16 06/18/16 06/19/16 14:59 22:59 06:59 Intake Total 600 ml 820 ml 990 ml Output Total 1200 ml 500 ml Balance -600 ml 820 ml 490 ml Exam HEENT examination; supple neck, no JVD. No lymphadenopathy. Pharynx is clear. No neck masses. Pupils are midsize, reactive to light bilaterally. Chest examination; minimally decreased breath sounds right lower lobe otherwise clear. S1-S2 ,audible no murmurs, regular rhythm. Abdomen examination; soft, nontender. Bowel sounds audible. No evidence of any recurrence of ascites. Extremity examination; no peripheral edema. BARBERING TEACHER examination; no focal deficit. Results Result Diagram: 06/18/1651706/18/16517 Medications Medications Current Medications Ondansetron HCl (Zofran Inj) 4 mg Q6H PRN IV NAUSEA AND/OR VOMITING Last administered on 06/19/16 08:43; Admin Dose 4 MG; Start 06/10/16 at 07:30 Acetaminophen (Tylenol Tab) 650 mg Q6H PRN PO PAIN LEVEL 1-3 OR FEVER Last administered on 06/16/16 22:50; Admin Dose 650 MG; Start 06/10/16 at 07:30 Famotidine (Pepcid Iv) 20 mg Q12 IV Last administered on 06/19/16 08:44; Admin Dose 20 MG; Start 06/10/16 at 09:00 Docusate Sodium (Colace) 100 mg Q12H PRN PO CONSTIPATION; Start 06/10/16 at 07: 30 Polyethylene Glycol (Miralax) 8.5 gm DAILY PRN PO CONSTIPATION; Start 06/10/16 at 07:30 Enoxaparin Sodium (Lovenox) 100 mg Q12 SC Last administered on 06/19/16 08:48 ; Admin Dose 100 MG; Start 06/10/16 at 09:00 Ferrous Sulfate 325 mg 325 mg BID PO Last administered on 06/19/16 08:48; Admin Dose 325 MG; Start 06/10/16 at 21:00 Potassium Chloride/Dextrose/ Sod Cl (D5-1/2ns + KCl 20 Meq) 1,000 ml @ 60 mls/ hr [id number] IV Last administered on 06/18/16 19:42; Admin Dose 60 MLS/HR; Start 06/11/16 at 16:00 Hydromorphone HCl (Dilaudid [employer]GE DENTAL LAB TECHNICIAN) 1 MG/HR CONTINUOUS RATE 1... Q4PCA IV Last administered on 06/19/16 10:14; Admin Dose 6 MG; Start 06/12/16 at 21:05 Methadone HCl (Methadone Liq (Ped)) 2 mg Q6 PO Last administered on 06/19/16 05:25; Admin Dose 2 MG; Start 06/13/16 at 14:00 Metoprolol Tartrate (Lopressor) 50 mg BID PO Last administered on 06/19/16 08: 50; Admin Dose 50 MG; Start 06/15/16 at 11:30 Nitroglycerin (Nitroglycerin (Sl Tab) 0.4 Mg) 1 tab Q5M PRN SL ANGINA Last administered on 06/17/16 11:33; Admin Dose 1 TAB; Start 06/15/16 at 22:47 Methylprednisolone Sodium Succinate (Solu-Medrol) 40 mg Q12 IV Last administered on 06/19/16 08:45; Admin Dose 40 MG; Start 06/16/16 at 21:00 Diltiazem HCl (Cardizem Cd) 120 mg BID PO Last administered on 06/19/16 08:50 ; Admin Dose 120 MG; Start 06/18/16 at 21:00 TITUS JO Jun 19, 2016 11:51
[2016-06-19] MEDS: APIXABAN 5 MG TABLET PO SCH ×2 (12:42→21:24)
--- NOTE | 2016-06-19 13:28 | CONS ---
Date/Time of Note Date/Time of Note DATE: 06/19/16 TIME: 13:25 Assessment/Plan Assessment/Plan Additional Assessment/Plan Tachycardia Pulmonary emboli Stomach cancer with metastases DVT Preserved ejection fraction Pleural effusion and abdominal ascites -Heart rate trend is improving. Continue beta-surinder and calcium channel surinder. We will plan to titrate down as tolerated over the next few days. Consultation Date/Type/Reason Admit Date/Time Jun 10, 2016 at 01:43 Type of Consultation: cv Referring Provider: NAYELY LINTON CHIEF MEDIA OFFICER 24 HR Interval Summary Free Text/Dictation Shortness of breath is slightly better, denies palpitations. Exam/Review of Systems Vital Signs Vitals Vital Signs Date Time Temp Pulse Resp B/P Pulse Ox O2 Delivery O2 Flow Rate FiO2 06/19/16 12:09 77 06/19/16 11:02 98.2 119/86 100 06/19/16 08:14 20 30 06/18/16 09:27 High Flow 06/16/16 16:39 8.0 Intake and Output 06/18/16 06/18/16 06/19/16 15:00 23:00 07:00 Intake Total 600 ml 820 ml 990 ml Output Total 1200 ml 500 ml Balance -600 ml 820 ml 490 ml Exam On high flow oxygen Constitutional: alert, obese, oriented Head: normocephalic Neck: supple Respiratory: other (Coarse breath sounds bilaterally, no wheezing) Cardiovascular: other (S1-S2 heard), regular rate and rhythm Gastrointestinal: bowel sounds, non-tender, other (No guarding), soft Extremities: edema (Trace) Results Result Diagram: 06/18/1651706/18/1618 Medications Medications Current Medications Ondansetron HCl (Zofran Inj) 4 mg Q6H PRN IV NAUSEA AND/OR VOMITING Last administered on 06/19/16 08:43; Admin Dose 4 MG; Start 06/10/16 at 07:30 Acetaminophen (Tylenol Tab) 650 mg Q6H PRN PO PAIN LEVEL 1-3 OR FEVER Last administered on 06/16/16 22:50; Admin Dose 650 MG; Start 06/10/16 at 07:30 Famotidine (Pepcid Iv) 20 mg Q12 IV Last administered on 06/19/16 08:44; Admin Dose 20 MG; Start 06/10/16 at 09:00 Docusate Sodium (Colace) 100 mg Q12H PRN PO CONSTIPATION; Start 06/10/16 at 07: 30 Polyethylene Glycol (Miralax) 8.5 gm DAILY PRN PO CONSTIPATION; Start 06/10/16 at 07:30 Ferrous Sulfate 325 mg 325 mg BID PO Last administered on 06/19/16 08:48; Admin Dose 325 MG; Start 06/10/16 at 21:00 Potassium Chloride/Dextrose/ Sod Cl (D5-1/2ns + KCl 20 Meq) 1,000 ml @ 60 mls/ hr [id number] IV Last administered on 06/18/16 19:42; Admin Dose 60 MLS/HR; Start 06/11/16 at 16:00 Hydromorphone HCl (Dilaudid RISK MANAGER) 1 MG/HR CONTINUOUS RATE 1... Q4PCA IV Last administered on 06/19/16 10:14; Admin Dose 6 MG; Start 06/12/16 at 21:05 Methadone HCl (Methadone Liq (Ped)) 2 mg Q6 PO Last administered on 06/19/16 12:42; Admin Dose 2 MG; Start 06/13/16 at 14:00 Metoprolol Tartrate (Lopressor) 50 mg BID PO Last administered on 06/19/16 08: 50; Admin Dose 50 MG; Start 06/15/16 at 11:30 Nitroglycerin (Nitroglycerin (Sl Tab) 0.4 Mg) 1 tab Q5M PRN SL ANGINA Last administered on 06/17/16 11:33; Admin Dose 1 TAB; Start 06/15/16 at 22:47 Methylprednisolone Sodium Succinate (Solu-Medrol) 40 mg Q12 IV Last administered on 06/19/16 08:45; Admin Dose 40 MG; Start 06/16/16 at 21:00 Diltiazem HCl (Cardizem Cd) 120 mg BID PO Last administered on 06/19/16 08:50 ; Admin Dose 120 MG; Start 06/18/16 at 21:00 Apixaban (Eliquis) 10 mg BID PO Last administered on 06/19/16 12:42; Admin Dose 10 MG; Start 06/19/16 at 12:00; Stop 06/25/16 at 23:00 Apixaban (Eliquis) 5 mg BID PO ; Start 06/26/16 at 09:00 José Baez DO Jun 19, 2016 13:28
--- NOTE | 2016-06-19 14:45 | CONS ---
Date/Time of Note Date/Time of Note DATE: 06/19/16 TIME: 14:43 Assessment/Plan Assessment/Plan Chief Complaint/Hosp Course 36 yo female with metastatic gastric cancer wh ohas failed multiple lines of chemotherapy who now presents with shortness of breath secondary to pulmonary embolism 1. Metastatic gastric cancer - pt has failed multiple lines of chemotherapy and is no longer a candidate for chemotherapy given her frail state - She carries a very poor prognosis. - agree with home hospice 2. Left lower extremity deep vein thrombosis and pulmonary embolism in bilateral pulmonary arteries - agree with plan for IVC filter - agree with Lovenox 100mg SQ q 12 Approximately 40 min were spent at patient's bedside and in coordination fo her care Problems: Consultation Date/Type/Reason Admit Date/Time Jun 10, 2016 at 01:43 Initial Consult Date 06/15/16 Type of Consultation: Hematology Reason for Consultation gastric ca Referring Provider: NAYELY LINTON NP 24 HR Interval Summary Free Text/Dictation no acute overnight events Exam/Review of Systems Vital Signs Vitals Vital Signs Date Time Temp Pulse Resp B/P Pulse Ox O2 Delivery O2 Flow Rate FiO2 06/19/16 12:09 77 06/19/16 11:02 98.2 119/86 100 06/19/16 08:14 20 30 06/18/16 09:27 High Flow 06/16/16 16:39 8.0 Intake and Output 06/18/16 06/18/16 06/19/16 15:00 23:00 07:00 Intake Total 600 ml 820 ml 990 ml Output Total 1200 ml 500 ml Balance -600 ml 820 ml 490 ml Exam Constitutional: distress, frail Psych: depression Head: normocephalic Eyes: nl conjunctiva ENMT: nl external ears & nose, other (with face mask) Respiratory: diminished breath sounds Cardiovascular: regular rate and rhythm Gastrointestinal: soft Musculoskeletal: nl extremities to inspection, nl gait and stance Extremities: normal pulses Results Result Diagram: 06/18/1651706/18/16517 Medications Medications Current Medications Ondansetron HCl (Zofran Inj) 4 mg Q6H PRN IV NAUSEA AND/OR VOMITING Last administered on 06/19/16t 08:43; Admin Dose 4 MG; Start 06/10/16 at 07:30 Acetaminophen (Tylenol Tab) 650 mg Q6H PRN PO PAIN LEVEL 1-3 OR FEVER Last administered on 06/16/16 22:50; Admin Dose 650 MG; Start 06/10/16 at 07:30 Famotidine (Pepcid Iv) 20 mg Q12 IV Last administered on 06/19/16 08:44; Admin Dose 20 MG; Start 06/10/16 at 09:00 Docusate Sodium (Colace) 100 mg Q12H PRN PO CONSTIPATION; Start 06/10/16 at 07: 30 Polyethylene Glycol (Miralax) 8.5 gm DAILY PRN PO CONSTIPATION; Start 06/10/16 at 07:30 Ferrous Sulfate 325 mg 325 mg BID PO Last administered on 06/19/16 08:48; Admin Dose 325 MG; Start 06/10/16 at 21:00 Potassium Chloride/Dextrose/ Sod Cl (D5-1/2ns + KCl 20 Meq) 1,000 ml @ 60 mls/ hr [id number] IV Last administered on 06/18/16 19:42; Admin Dose 60 MLS/HR; Start 06/11/16 at 16:00 Hydromorphone HCl (Dilaudid MOULDER OPERATOR) 1 MG/HR CONTINUOUS RATE 1... Q4PCA IV Last administered on 06/19/16 14:13; Admin Dose 6 MG; Start 06/12/16 at 21:05 Methadone HCl (Methadone Liq (Ped)) 2 mg Q6 PO Last administered on 06/19/16 12:42; Admin Dose 2 MG; Start 06/13/16 at 14:00 Metoprolol Tartrate (Lopressor) 50 mg BID PO Last administered on 06/19/16 08: 50; Admin Dose 50 MG; Start 06/15/16 at 11:30 Nitroglycerin (Nitroglycerin (Sl Tab) 0.4 Mg) 1 tab Q5M PRN SL ANGINA Last administered on 06/17/16 11:33; Admin Dose 1 TAB; Start 06/15/16 at 22:47 Methylprednisolone Sodium Succinate (Solu-Medrol) 40 mg Q12 IV Last administered on 06/19/16 08:45; Admin Dose 40 MG; Start 06/16/16 at 21:00 Diltiazem HCl (Cardizem Cd) 120 mg BID PO Last administered on 06/19/16 08:50 ; Admin Dose 120 MG; Start 06/18/16 at 21:00 Apixaban (Eliquis) 10 mg BID PO Last administered on 06/19/16t 12:42; Admin Dose 10 MG; Start 06/19/16 at 12:00; Stop 06/25/16 at 23:00 Apixaban (Eliquis) 5 mg BID PO ; Start 06/26/16 at 09:00 LISSET BABIN M.D. Jun 19, 2016 14:44
[2016-06-20] VITALS (12 sets, daily range): BP systolic 94–112; BP diastolic 65–76; PULSE 69–112; RESP 17–20
[2016-06-20] MEDS: METHADONE (1 MG/1 ML PO SYG) PO SCH ×4 (00:07→17:34)
[2016-06-20] MEDS: LEVALBUTEROL (NEB) 0.63 MG/3 ML AMP HHN SCH ×4 (00:52→23:47)
[2016-06-20] MEDS: HYDROmorphONE 0.2 MG/ML PCA IV SCH ×5 (03:01→23:59)
[2016-06-20] MEDS: FUROSEMIDE 20 MG TAB PO SCH ×2 (05:48→17:34)
[2016-06-20] MEDS: APIXABAN 5 MG TABLET PO SCH ×2 (08:40→20:41)
[2016-06-20] MEDS: FAMOTIDINE 20 MG INJ IV SCH ×2 (08:40→20:41)
[2016-06-20] MEDS: FERROUS SULFATE (EC) 325 MG TAB PO SCH ×2 (08:40→20:40)
[2016-06-20] MEDS: DILTIAZEM (CD) 120 MG CAP PO SCH (08:40)
[2016-06-20] MEDS: METOPROLOL 50 MG TAB PO SCH ×2 (08:40→20:42)
[2016-06-20] MEDS: D5W-0.45 NACL + KCL 20 MEQ 1,000 ML IV SCH (08:41)
[2016-06-20] MEDS: METHYLPREDNISOLONE 40 MG INJ IV SCH ×2 (08:41→20:41)
[2016-06-20] MEDS: ONDANSETRON 4 MG INJ IV PRN (09:56)
--- NOTE | 2016-06-20 12:20 | CONS ---
Date/Time of Note Date/Time of Note DATE: 06/20/16 TIME: 12:17 Assessment/Plan Assessment/Plan Additional Assessment/Plan Assessment recommendations; 1. Patient admitted with ascites status post large volume paracentesis without any evidence of the accommodation of ascites fluid. 2. Metastatic gastric cancer. 3. Bilateral pleural thickening. To rule out metastatic disease to the lungs. 4. Chronic pain. Patient currently on morphine HEDDLER TIER. Continue current supportive care. Prognosis is poor. Consultation Date/Type/Reason Admit Date/Time Jun 10, 2016 at 01:43 Initial Consult Date 06/15/16 Type of Consultation: Pulmonary Referring Provider: NAYELY LINTON NP 24 HR Interval Summary Free Text/Dictation Patient condition is fairly stable. Still on high flow FiO2. Denies any shortness of breath, chest pain, but does complain of occasional abdominal pain. Complains of occasional nausea without any vomiting. General examination; young lady, awake alert currently in no distress. Exam/Review of Systems Vital Signs Vitals Vital Signs Date Time Temp Pulse Resp B/P Pulse Ox O2 Delivery O2 Flow Rate FiO2 06/20/16 12:10 69 06/20/16 11:15 97.0 20 101/65 100 06/20/16 08:45 30 06/18/16 09:27 High Flow 06/16/16 16:39 8.0 Intake and Output 06/19/16 06/19/16 06/20/16 15:00 23:00 07:00 Intake Total 1000 ml 1010 ml Output Total 1400 ml Balance 1000 ml -390 ml Exam HEENT examination; supple neck, no JVD. No lymphadenopathy. Pharynx is clear. Pupils are midsize and reactive to light. Chest examination; minimally decreased breath sounds right lower lobe. S1-S2 audible no murmurs, regular rhythm. Abdomen examination; soft, mild epigastric tenderness is present. Bowel sounds audible. Extremity examination; trace peripheral edema. ALARM INVESTIGATOR examination; no focal deficit. Results Result Diagram: 06/18/1651706/18/16517 Results 24 hrs Laboratory Tests Test 06/19/16 19:20 Serum HCG, Qualitative POSITIVE Medications Medications Current Medications Ondansetron HCl (Zofran Inj) 4 mg Q6H PRN IV NAUSEA AND/OR VOMITING Last administered on 06/20/16t 09:56; Admin Dose 4 MG; Start 06/10/16 at 07:30 Acetaminophen (Tylenol Tab) 650 mg Q6H PRN PO PAIN LEVEL 1-3 OR FEVER Last administered on 06/16/16 22:50; Admin Dose 650 MG; Start 06/10/16 at 07:30 Famotidine (Pepcid Iv) 20 mg Q12 IV Last administered on 06/20/16 08:40; Admin Dose 20 MG; Start 06/10/16 at 09:00 Docusate Sodium (Colace) 100 mg Q12H PRN PO CONSTIPATION; Start 06/10/16 at 07: 30 Polyethylene Glycol (Miralax) 8.5 gm DAILY PRN PO CONSTIPATION; Start 06/10/16 at 07:30 Ferrous Sulfate 325 mg 325 mg BID PO Last administered on 06/20/16 08:40; Admin Dose 325 MG; Start 06/10/16 at 21:00 Potassium Chloride/Dextrose/ Sod Cl (D5-1/2ns + KCl 20 Meq) 1,000 ml @ 60 mls/ hr [id number] IV Last administered on 06/20/16 08:41; Admin Dose 60 MLS/HR; Start 06/11/16 at 16:00 Hydromorphone HCl (Dilaudid HEDDLER TIER) 1 MG/HR CONTINUOUS RATE 1... Q4PCA IV Last administered on 06/20/16 08:48; Admin Dose 6 MG; Start 06/12/16 at 21:05 Methadone HCl (Methadone Liq (Ped)) 2 mg Q6 PO Last administered on 06/20/16 11:21; Admin Dose 2 MG; Start 06/13/16 at 14:00 Metoprolol Tartrate (Lopressor) 50 mg BID PO Last administered on 06/20/16 08: 40; Admin Dose 50 MG; Start 06/15/16 at 11:30 Nitroglycerin (Nitroglycerin (Sl Tab) 0.4 Mg) 1 tab Q5M PRN SL ANGINA Last administered on 06/17/16 11:33; Admin Dose 1 TAB; Start 06/15/16 at 22:47 Methylprednisolone Sodium Succinate (Solu-Medrol) 40 mg Q12 IV Last administered on 06/20/16 08:41; Admin Dose 40 MG; Start 06/16/16 at 21:00 Diltiazem HCl (Cardizem Cd) 120 mg BID PO Last administered on 06/20/16 08:40 ; Admin Dose 120 MG; Start 06/18/16 at 21:00 Apixaban (Eliquis) 10 mg BID PO Last administered on 06/20/16 08:40; Admin Dose 10 MG; Start 06/19/16 at 12:00; Stop 06/25/16 at 23:00 Apixaban (Eliquis) 5 mg BID PO ; Start 06/26/16 at 09:00 TITUS JO Jun 20, 2016 12:20
--- NOTE | 2016-06-20 13:43 | CONS ---
Date/Time of Note Date/Time of Note DATE: 06/20/16 TIME: 13:42 Assessment/Plan Assessment/Plan Chief Complaint/Hosp Course 36 yo female with metastatic gastric cancer who has failed multiple lines of chemotherapy who now presents with shortness of breath secondary to pulmonary embolism 1. Metastatic gastric cancer - pt has failed multiple lines of chemotherapy and is no longer a candidate for chemotherapy given her frail state - She carries a very poor prognosis. - agree with home hospice 2. Left lower extremity deep vein thrombosis and pulmonary embolism in bilateral pulmonary arteries - agree with plan for IVC filter - agree with Lovenox 100mg SQ q 12 Approximately 40 min were spent at patient's bedside and in coordination fo her care Problems: Consultation Date/Type/Reason Admit Date/Time Jun 10, 2016 at 01:43 Initial Consult Date 06/15/16 Type of Consultation: Oncology Reason for Consultation gastric cancer Referring Provider: NAYELY LINTON NP 24 HR Interval Summary Free Text/Dictation pt remains on VICTORIAN LITERATURE PROFESSOR. still requiring O2 Exam/Review of Systems Vital Signs Vitals Vital Signs Date Time Temp Pulse Resp B/P Pulse Ox O2 Delivery O2 Flow Rate FiO2 06/20/16 12:10 69 06/20/16 11:15 97.0 20 101/65 100 06/20/16 08:45 30 06/18/16 09:27 High Flow 06/16/16 16:39 8.0 Intake and Output 06/19/16 06/19/16 06/20/16 15:00 23:00 07:00 Intake Total 1000 ml 1010 ml Output Total 1400 ml Balance 1000 ml -390 ml Exam Constitutional: frail, non-verbal Psych: depression Head: normocephalic Eyes: nl conjunctiva ENMT: other (face mask in place) Neck: non-tender, supple Respiratory: clear to auscultation Cardiovascular: regular rate and rhythm Gastrointestinal: soft Musculoskeletal: nl extremities to inspection, nl gait and stance Extremities: normal pulses Results Result Diagram: 06/18/1651706/18/16517 Results 24 hrs Laboratory Tests Test 06/19/16 19:20 Serum HCG, Qualitative POSITIVE Medications Medications Current Medications Ondansetron HCl (Zofran Inj) 4 mg Q6H PRN IV NAUSEA AND/OR VOMITING Last administered on 06/20/16t 09:56; Admin Dose 4 MG; Start 06/10/16 at 07:30 Acetaminophen (Tylenol Tab) 650 mg Q6H PRN PO PAIN LEVEL 1-3 OR FEVER Last administered on 06/16/16 22:50; Admin Dose 650 MG; Start 06/10/16 at 07:30 Famotidine (Pepcid Iv) 20 mg Q12 IV Last administered on 06/20/16 08:40; Admin Dose 20 MG; Start 06/10/16 at 09:00 Docusate Sodium (Colace) 100 mg Q12H PRN PO CONSTIPATION; Start 06/10/16 at 07: 30 Polyethylene Glycol (Miralax) 8.5 gm DAILY PRN PO CONSTIPATION; Start 06/10/16 at 07:30 Ferrous Sulfate 325 mg 325 mg BID PO Last administered on 06/20/16 08:40; Admin Dose 325 MG; Start 06/10/16 at 21:00 Potassium Chloride/Dextrose/ Sod Cl (D5-1/2ns + KCl 20 Meq) 1,000 ml @ 60 mls/ hr [id number] IV Last administered on 06/20/16 08:41; Admin Dose 60 MLS/HR; Start 06/11/16 at 16:00 Hydromorphone HCl (Dilaudid VICTORIAN LITERATURE PROFESSOR) 1 MG/HR CONTINUOUS RATE 1... Q4PCA IV Last administered on 06/20/16 08:48; Admin Dose 6 MG; Start 06/12/16 at 21:05 Methadone HCl (Methadone Liq (Ped)) 2 mg Q6 PO Last administered on 06/20/16 11:21; Admin Dose 2 MG; Start 06/13/16 at 14:00 Metoprolol Tartrate (Lopressor) 50 mg BID PO Last administered on 06/20/16 08: 40; Admin Dose 50 MG; Start 06/15/16 at 11:30 Nitroglycerin (Nitroglycerin (Sl Tab) 0.4 Mg) 1 tab Q5M PRN SL ANGINA Last administered on 06/17/16 11:33; Admin Dose 1 TAB; Start 06/15/16 at 22:47 Methylprednisolone Sodium Succinate (Solu-Medrol) 40 mg Q12 IV Last administered on 06/20/16 08:41; Admin Dose 40 MG; Start 06/16/16 at 21:00 Diltiazem HCl (Cardizem Cd) 120 mg BID PO Last administered on 06/20/16 08:40 ; Admin Dose 120 MG; Start 06/18/16 at 21:00 Apixaban (Eliquis) 10 mg BID PO Last administered on 06/20/16 08:40; Admin Dose 10 MG; Start 06/19/16 at 12:00; Stop 06/25/16 at 23:00 Apixaban (Eliquis) 5 mg BID PO ; Start 06/26/16 at 09:00 LISSET BABIN M.D. Jun 20, 2016 13:43
[2016-06-20] MEDS ORDERED: POTASSIUM CHLORIDE (SR) 20 MEQ TAB PO STA (13:49)
--- NOTE | 2016-06-20 13:59 | CONS ---
Date/Time of Note Date/Time of Note DATE: 06/20/16 TIME: 13:58 Assessment/Plan Assessment/Plan Additional Assessment/Plan Tachycardia Pulmonary emboli Stomach cancer with metastases DVT Preserved ejection fraction Pleural effusion and abdominal ascites -Heart rate trend continues to improve. Would decrease frequency of Cardizem and dosing of Lopressor. Potassium and magnesium supplementation ordered Consultation Date/Type/Reason Admit Date/Time Jun 10, 2016 at 01:43 Type of Consultation: cv Referring Provider: NAYELY LINTON HOUSE SUPERINTENDENT 24 HR Interval Summary Free Text/Dictation Shortness of breath is better, denies chest pain or palpitation Exam/Review of Systems Vital Signs Vitals Vital Signs Date Time Temp Pulse Resp B/P Pulse Ox O2 Delivery O2 Flow Rate FiO2 06/20/16 12:10 69 06/20/16 11:15 97.0 20 101/65 100 06/20/16 08:45 30 06/18/16 09:27 High Flow 06/16/16 16:39 8.0 Intake and Output 06/19/16 06/19/16 06/20/16 15:00 23:00 07:00 Intake Total 1000 ml 1010 ml Output Total 1400 ml Balance 1000 ml -390 ml Exam No apparent distress Constitutional: alert, obese, oriented Head: normocephalic Neck: supple Respiratory: other (Coarse breath sounds bilaterally, no wheezing) Cardiovascular: other (S1-S2), regular rate and rhythm Gastrointestinal: bowel sounds, other (No guarding), soft, tender (Diffuse discomfort with palpation) Extremities: edema (Trace) Results Result Diagram: 06/18/1618 06/18/16 0518 Results 24 hrs Laboratory Tests Test 06/19/16 19:20 Serum HCG, Qualitative POSITIVE Medications Medications Current Medications Ondansetron HCl (Zofran Inj) 4 mg Q6H PRN IV NAUSEA AND/OR VOMITING Last administered on 06/20/16 09:56; Admin Dose 4 MG; Start 06/10/16 at 07:30 Acetaminophen (Tylenol Tab) 650 mg Q6H PRN PO PAIN LEVEL 1-3 OR FEVER Last administered on 06/16/16 22:50; Admin Dose 650 MG; Start 06/10/16 at 07:30 Famotidine (Pepcid Iv) 20 mg Q12 IV Last administered on 06/20/16 08:40; Admin Dose 20 MG; Start 06/10/16 at 09:00 Docusate Sodium (Colace) 100 mg Q12H PRN PO CONSTIPATION; Start 06/10/16 at 07: 30 Polyethylene Glycol (Miralax) 8.5 gm DAILY PRN PO CONSTIPATION; Start 06/10/16 at 07:30 Ferrous Sulfate 325 mg 325 mg BID PO Last administered on 06/20/16 08:40; Admin Dose 325 MG; Start 06/10/16 at 21:00 Potassium Chloride/Dextrose/ Sod Cl (D5-1/2ns + KCl 20 Meq) 1,000 ml @ 60 mls/ hr [id number] IV Last administered on 06/20/16 08:41; Admin Dose 60 MLS/HR; Start 06/11/16 at 16:00 Hydromorphone HCl (Dilaudid SEWER CLEANER) 1 MG/HR CONTINUOUS RATE 1... Q4PCA IV Last administered on 06/20/16 08:48; Admin Dose 6 MG; Start 06/12/16 at 21:05 Methadone HCl (Methadone Liq (Ped)) 2 mg Q6 PO Last administered on 06/20/16 11:21; Admin Dose 2 MG; Start 06/13/16 at 14:00 Metoprolol Tartrate (Lopressor) 50 mg BID PO Last administered on 06/20/16 08: 40; Admin Dose 50 MG; Start 06/15/16 at 11:30 Nitroglycerin (Nitroglycerin (Sl Tab) 0.4 Mg) 1 tab Q5M PRN SL ANGINA Last administered on 06/17/16 11:33; Admin Dose 1 TAB; Start 06/15/16 at 22:47 Methylprednisolone Sodium Succinate (Solu-Medrol) 40 mg Q12 IV Last administered on 06/20/16 08:41; Admin Dose 40 MG; Start 06/16/16 at 21:00 Diltiazem HCl (Cardizem Cd) 120 mg BID PO Last administered on 06/20/16 08:40 ; Admin Dose 120 MG; Start 06/18/16 at 21:00 Apixaban (Eliquis) 10 mg BID PO Last administered on 06/20/16 08:40; Admin Dose 10 MG; Start 06/19/16 at 12:00; Stop 06/25/16 at 23:00 Apixaban (Eliquis) 5 mg BID PO ; Start 06/26/16 at 09:00 José Baez DO Jun 20, 2016 13:59
[2016-06-20] MEDS ORDERED: MAGNESIUM SULFATE 3 GM in SOD CHLORIDE 0.9% 100 ML IVPB ONE (16:00)
--- NOTE | 2016-06-20 16:19 | PN ---
Date/Time of Note Date/Time of Note DATE: 06/20/16 TIME: 16:17 Assessment/Plan VTE Prophylaxis VTE Prophylaxis Intervention: LMWH Lines/Catheters IV [facility] Type (from [facility]): Peripheral IV Urinary Cath still in place: No Assessment/Plan Chief Complaint/Hosp Course Assessment and plan 1. Pulmonary embolism . Continue on anticoagulation. Continue on O2. 2. Left distal superficial femoral vein DVT. Continue anticoagulation. Vascular surgeon is following. No recommendation for IVC filter given patient's advanced malignancy and hypercoagulability secondary to underlying malignancy 3. Abdominal pain with ascites likely malignant in origin. Patient did receive paracentesis. We'll provide as needed 4. History of stomach cancer with malignant ascites. Palliative care physician following. Oncologist following. No plan for further chemotherapy given patient' s health condition. Follow-up with oncologist recommendations. 5. Iron deficiency anemia. Continue iron supplement 6. Bilateral pleural effusions. Continue on diuretic 7. Acute respiratory failure. Continue insulin bronchodilators. Continue pulmonology recommendations 8. GERD prophylaxis: H2 surinder Disposition and plan: Titrate off high flow. Trial Ventimask. Discharge him medically stable and cleared by consultants Discussed plan of care with Dr. Banda Problems: Subjective 24 Hr Interval Summary Free Text/Dictation Remains on high flow. Arterial bedside Exam/Review of Systems Vital Signs Vitals Vital Signs Date Time Temp Pulse Resp B/P Pulse Ox O2 Delivery O2 Flow Rate FiO2 06/20/16 16:04 73 06/20/16 15:50 98.0 20 104/76 100 06/20/16 08:45 30 06/18/16 09:27 High Flow 06/16/16 16:39 8.0 Intake and Output 06/19/16 06/19/16 06/20/16 15:00 23:00 07:00 Intake Total 1000 ml 1010 ml Output Total 1400 ml Balance 1000 ml -390 ml Exam General: No acute signs or symptoms of distress Eyes: pupils equal round, Anicteric sclera Neck: Supple nontender, no JVD Cardiac: S1, S2 auscultated, regular rhythm and rate Pulmonary: Diminished bilaterally GI: Protuberant Extremities: Edema bilateral lower extremities Skin: Clean dry and intact Neurologic: Alert to person place and time and situation Results Result Diagram: 06/18/1651706/18/16517 Results 24 hrs Laboratory Tests Test 06/19/16 19:20 Serum HCG, Qualitative POSITIVE Medications Medications Current Medications Ondansetron HCl (Zofran Inj) 4 mg Q6H PRN IV NAUSEA AND/OR VOMITING Last administered on 06/20/16 09:56; Admin Dose 4 MG; Start 06/10/16 at 07:30 Acetaminophen (Tylenol Tab) 650 mg Q6H PRN PO PAIN LEVEL 1-3 OR FEVER Last administered on 06/16/16 22:50; Admin Dose 650 MG; Start 06/10/16 at 07:30 Famotidine (Pepcid Iv) 20 mg Q12 IV Last administered on 06/20/16 08:40; Admin Dose 20 MG; Start 06/10/16 at 09:00 Docusate Sodium (Colace) 100 mg Q12H PRN PO CONSTIPATION; Start 06/10/16 at 07: 30 Polyethylene Glycol (Miralax) 8.5 gm DAILY PRN PO CONSTIPATION; Start 06/10/16 at 07:30 Ferrous Sulfate 325 mg 325 mg BID PO Last administered on 06/20/16 08:40; Admin Dose 325 MG; Start 06/10/16 at 21:00 Potassium Chloride/Dextrose/ Sod Cl (D5-1/2ns + KCl 20 Meq) 1,000 ml @ 60 mls/ hr [id number] IV Last administered on 06/20/16 08:41; Admin Dose 60 MLS/HR; Start 06/11/16 at 16:00 Hydromorphone HCl (Dilaudid BREED TO WEAN PRODUCTION TECHNICIAN) 1 MG/HR CONTINUOUS RATE 1... Q4PCA IV Last administered on 06/20/16 14:30; Admin Dose 6 MG; Start 06/12/16 at 21:05 Methadone HCl (Methadone Liq (Ped)) 2 mg Q6 PO Last administered on 06/20/16 11:21; Admin Dose 2 MG; Start 06/13/16 at 14:00 Nitroglycerin (Nitroglycerin (Sl Tab) 0.4 Mg) 1 tab Q5M PRN SL ANGINA Last administered on 06/17/16 11:33; Admin Dose 1 TAB; Start 06/15/16 at 22:47 Methylprednisolone Sodium Succinate (Solu-Medrol) 40 mg Q12 IV Last administered on 06/20/16 08:41; Admin Dose 40 MG; Start 06/16/16 at 21:00 Apixaban (Eliquis) 10 mg BID PO Last administered on 06/20/16t 08:40; Admin Dose 10 MG; Start 06/19/16 at 12:00; Stop 06/25/16 at 23:00 Apixaban (Eliquis) 5 mg BID PO ; Start 06/26/16 at 09:00 Diltiazem HCl (Cardizem Cd) 120 mg DAILY PO ; Start 06/21/16 at 09:00 Metoprolol Tartrate 25 mg 25 mg BID PO ; Start 06/20/16 at 21:00 Magnesium Sulfate/ Sodium Chloride (Magnesium Sulfate/NS) 106 ml @ 35.333 mls/ hr ONCE ONCE IVPB ; Start 06/20/16 at 16:00; Stop 06/20/16 at 18:59 Prochlorperazine (Compazine) 5 mg Q4H PRN PO NAUSEA AND/OR VOMITING; Start at 14:00 CARMEN BHATTI Jun 20, 2016 16:19 CARMEN BHATTI Jun 20, 2016 16:19
[2016-06-21] VITALS (11 sets, daily range): BP systolic 99–147; BP diastolic 68–81; PULSE 60–88; RESP 17–18
[2016-06-21] MEDS: METHADONE (1 MG/1 ML PO SYG) PO SCH ×4 (00:34→18:16)
[2016-06-21] MEDS: D5W-0.45 NACL + KCL 20 MEQ 1,000 ML IV SCH ×2 (03:57→23:23)
[2016-06-21] MEDS: DOCUSATE SODIUM 100 MG CAP PO PRN (06:04)
[2016-06-21] MEDS: ONDANSETRON 4 MG INJ IV PRN (06:05)
[2016-06-21] MEDS: POLYETHYLENE GLYCOL 17 GM PACKET PO PRN (06:05)
[2016-06-21] MEDS: FUROSEMIDE 20 MG TAB PO SCH ×2 (06:06→18:16)
[2016-06-21] MEDS: HYDROmorphONE 0.2 MG/ML PCA IV SCH ×3 (06:14→20:47)
[2016-06-21] MEDS: LEVALBUTEROL (NEB) 0.63 MG/3 ML AMP HHN SCH ×3 (08:25→23:09)
[2016-06-21] MEDS: APIXABAN 5 MG TABLET PO SCH ×2 (09:00→23:22)
[2016-06-21] MEDS: DILTIAZEM (CD) 120 MG CAP PO SCH ×2 (09:00→13:10)
[2016-06-21] MEDS: METOPROLOL 50 MG TAB PO SCH ×3 (09:00→23:23)
[2016-06-21] MEDS: FERROUS SULFATE (EC) 325 MG TAB PO SCH ×2 (09:00→23:22)
[2016-06-21] MEDS: METHYLPREDNISOLONE 40 MG INJ IV SCH ×2 (09:17→23:22)
[2016-06-21] MEDS: PROCHLORPERAZINE 5 MG TAB PO PRN (09:17)
[2016-06-21] MEDS: FAMOTIDINE 20 MG INJ IV SCH ×2 (09:17→23:21)
--- NOTE | 2016-06-21 12:14 | PN ---
Date/Time of Note Date/Time of Note DATE: 06/21/16 TIME: 12:13 Assessment/Plan Lines/Catheters IV Catheter Type (from [facility]): Saline Lock [facility] in Place (from [facility]): No Assessment/Plan Chief Complaint/Hosp Course -Left lower extremity deep vein thrombosis and pulmonary embolism in bilateral pulmonary arteries: It seems that the patient's metastatic stomach cancer is the likely the cause of her being hypercoagulable and developing deep vein thrombosis and pulmonary embolism. Despite her being on prophylactic anticoagulation, she has developed pulmonary embolism. -Will plan for inferior vena cava filter placement, in light of these findings. However, the patient is not a candidate for endovascular interventions, such as thrombolysis or thrombectomy, as the patient's prognosis seems to be poor -Awaiting improvement of her oxygen demand in order to perform our intervention safely -Optimize vascular status. -Continue with her anticoagulation -Will plan to place IVC filter in the coming days as the patient has agreed and multidisciplinary team feels it is necessary given her poor prognosis -Elevate left lower extremity. -Discussed findings, plan, and management with the patient and family at the bedside with a certified harbor pilot and they understand. -Thank you for allowing us to partake in the care of your patient. Please call with any questions. Problems: Subjective 24 Hr Interval Summary No new vascular events overnight still on oxygen Exam/Review of Systems Vital Signs Vitals Vital Signs Date Time Temp Pulse Resp B/P Pulse Ox O2 Delivery O2 Flow Rate FiO2 06/21/16 08:52 98.6 85 18 113/81 98 06/21/16 08:31 30 06/18/16 09:27 High Flow Intake and Output 06/20/16 06/20/16 06/21/16 15:00 23:00 07:00 Intake Total 950 ml 720 ml Output Total 400 ml Balance 550 ml 720 ml Exam Free Text/Dictation GENERAL: Alert and oriented x3. PULMONARY: Coarse breath sounds bilaterally, crackles at the bases. CARDIOVASCULAR: S1, S2 present. ABDOMEN: Soft, nontender, nondistended. Bowel sounds positive. Truncal obesity. EXTREMITIES: Palpable femoral pulses, palpable pedal pulses. Motor, sensory intact. Capillary refill 2 to 3 seconds. Edema 1+ of the left lower extremity. Results Result Diagram: 06/18/16 0518 06/18/1618 RACHID CRUZ MD Jun 21, 2016 12:14
--- NOTE | 2016-06-21 12:32 | CONS ---
Date/Time of Note Date/Time of Note DATE: 06/21/16 TIME: 12:29 Assessment/Plan Assessment/Plan Additional Assessment/Plan Assessment and recommendations; next 1. Patient admitted with large ascites status post large volume paracentesis with significant improvement in symptomatology. Next 2. Metastatic gastric cancer. Next 3. Bilateral pleural thickening. The patient does have diminished breath sounds throughout and is difficult to rule out any superimposed pleural effusions. Next 4. Chronic pain. Currently on morphine SUPERVISOR COOK ROOM. Recommendations continue current treatment, will obtain a chest x-ray. Consultation Date/Type/Reason Admit Date/Time Jun 10, 2016 at 01:43 Initial Consult Date 06/15/16 Type of Consultation: Pulmonary Referring Provider: NAYELY LINTON NP 24 HR Interval Summary Free Text/Dictation Patient condition is fairly stable. Complains of minimal shortness of breath. Denies any chest pain, coughing, sputum production. Denies any hemoptysis. Complains of mild abdominal pain. Complaint of occasional nausea without any vomiting. Denies any fever chills. General examination; young woman currently in no distress, awake and alert. Exam/Review of Systems Vital Signs Vitals Vital Signs Date Time Temp Pulse Resp B/P Pulse Ox O2 Delivery O2 Flow Rate FiO2 06/21/16 12:17 98.0 89 18 147/80 98 06/21/16 08:31 30 06/18/16 09:27 High Flow Intake and Output 06/20/16 06/20/16 06/21/16 15:00 23:00 07:00 Intake Total 950 ml 720 ml Output Total 400 ml Balance 550 ml 720 ml Exam H EENT examination; supple neck, no JVD. No lymphadenopathy. Pharynx is clear. Fair dentition. Pupils are midsize and reactive to light bilaterally. Chest examination; diminished breath sounds throughout. S1-S2 audible, no murmurs. Regular rhythm. Abdomen examination; soft, there is mild epigastric tenderness. Bowel sounds audible. Extremity examination; no peripheral edema. COMMUNICATION CENTER OPERATOR examination; no focal deficit. Results Result Diagram: 06/18/1651706/18/16517 Medications Medications Current Medications Ondansetron HCl (Zofran Inj) 4 mg Q6H PRN IV NAUSEA AND/OR VOMITING Last administered on 06/21/16t 06:05; Admin Dose 4 MG; Start 06/10/16 at 07:30 Acetaminophen (Tylenol Tab) 650 mg Q6H PRN PO PAIN LEVEL 1-3 OR FEVER Last administered on 06/16/16 22:50; Admin Dose 650 MG; Start 06/10/16 at 07:30 Famotidine (Pepcid Iv) 20 mg Q12 IV Last administered on 06/21/16 09:17; Admin Dose 20 MG; Start 06/10/16 at 09:00 Docusate Sodium (Colace) 100 mg Q12H PRN PO CONSTIPATION Last administered on 06:04; Admin Dose 100 MG; Start 06/10/16 at 07:30 Polyethylene Glycol (Miralax) 8.5 gm DAILY PRN PO CONSTIPATION; Start 06/10/16 at 07:30 Ferrous Sulfate 325 mg 325 mg BID PO Last administered on 06/20/16 20:40; Admin Dose 325 MG; Start 06/10/16 at 21:00 Potassium Chloride/Dextrose/ Sod Cl (D5-1/2ns + KCl 20 Meq) 1,000 ml @ 60 mls/ hr [id number] IV Last administered on 06/21/16 03:57; Admin Dose 60 MLS/HR; Start 06/11/16 at 16:00 Hydromorphone HCl (Dilaudid SUPERVISOR COOK ROOM) 1 MG/HR CONTINUOUS RATE 1... Q4PCA IV Last administered on 06/21/16 11:08; Admin Dose 6 MG; Start 06/12/16 at 21:05 Methadone HCl (Methadone Liq (Ped)) 2 mg Q6 PO Last administered on 06/21/16 11:09; Admin Dose 2 MG; Start 06/13/16 at 14:00 Nitroglycerin (Nitroglycerin (Sl Tab) 0.4 Mg) 1 tab Q5M PRN SL ANGINA Last administered on 06/17/16 11:33; Admin Dose 1 TAB; Start 06/15/16 at 22:47 Methylprednisolone Sodium Succinate (Solu-Medrol) 40 mg Q12 IV Last administered on 06/21/16 09:17; Admin Dose 40 MG; Start 06/16/16 at 21:00 Apixaban (Eliquis) 10 mg BID PO Last administered on 06/20/16 20:41; Admin Dose 10 MG; Start 2/14/17 at 12:00; Stop 06/25/16 at 23:00 Apixaban (Eliquis) 5 mg BID PO ; Start 06/26/16 at 09:00 Diltiazem HCl (Cardizem Cd) 120 mg DAILY PO ; Start 06/21/16 at 09:00 Metoprolol Tartrate (Lopressor) 25 mg BID PO Last administered on 06/20/16 20: 42; Admin Dose 25 MG; Start 06/20/16 at 21:00 Prochlorperazine (Compazine) 5 mg Q4H PRN PO NAUSEA AND/OR VOMITING Last administered on 06/21/16 09:17; Admin Dose 5 MG; Start 06/20/16 at 14:00 Fluticasone Propionate (Flonase 0.05% Nasal) 1 spray BID NASAL ; Start 06/21/16 at 12:00 TITUS JO Jun 21, 2016 12:32
--- NOTE | 2016-06-21 12:34 | CONS ---
Date/Time of Note Date/Time of Note DATE: 06/21/16 TIME: 12:32 Assessment/Plan Assessment/Plan Chief Complaint/Hosp Course 36 yo female with metastatic gastric cancer who has failed multiple lines of chemotherapy who now presents with shortness of breath secondary to pulmonary embolism 1. Metastatic gastric cancer - pt has failed multiple lines of chemotherapy and is no longer a candidate for chemotherapy given her frail state - She carries a very poor prognosis. - agree with home hospice. pt will need home o2 2. Left lower extremity deep vein thrombosis and pulmonary embolism in bilateral pulmonary arteries - agree with plan for IVC filter - agree with Lovenox 100mg SQ q 12 Approximately 40 min were spent at patient's bedside and in coordination fo her care Problems: Consultation Date/Type/Reason Admit Date/Time Jun 10, 2016 at 01:43 Initial Consult Date 06/15/16 Type of Consultation: Hematology Reason for Consultation metastatic gastric cancer Referring Provider: NAYELY LINTON NP 24 HR Interval Summary Free Text/Dictation breathing better Exam/Review of Systems Vital Signs Vitals Vital Signs Date Time Temp Pulse Resp B/P Pulse Ox O2 Delivery O2 Flow Rate FiO2 06/21/16 12:17 98.0 89 18 147/80 98 06/21/16 08:31 30 06/18/16 09:27 High Flow Intake and Output 06/20/16 06/20/16 06/21/16 15:00 23:00 07:00 Intake Total 950 ml 720 ml Output Total 400 ml Balance 550 ml 720 ml Exam Constitutional: alert, oriented Psych: no complaints Head: normocephalic Eyes: nl conjunctiva ENMT: nl external ears & nose, nl lips & teeth Neck: non-tender, supple Respiratory: diminished breath sounds, labored breathing Cardiovascular: regular rate and rhythm Gastrointestinal: soft Musculoskeletal: nl extremities to inspection, nl gait and stance Results Result Diagram: 06/18/1651706/18/16517 Medications Medications Current Medications Ondansetron HCl (Zofran Inj) 4 mg Q6H PRN IV NAUSEA AND/OR VOMITING Last administered on 06/21/16 06:05; Admin Dose 4 MG; Start 06/10/16 at 07:30 Acetaminophen (Tylenol Tab) 650 mg Q6H PRN PO PAIN LEVEL 1-3 OR FEVER Last administered on 06/16/16 22:50; Admin Dose 650 MG; Start 06/10/16 at 07:30 Famotidine (Pepcid Iv) 20 mg Q12 IV Last administered on 06/21/16 09:17; Admin Dose 20 MG; Start 06/10/16 at 09:00 Docusate Sodium (Colace) 100 mg Q12H PRN PO CONSTIPATION Last administered on 06:04; Admin Dose 100 MG; Start 06/10/16 at 07:30 Polyethylene Glycol (Miralax) 8.5 gm DAILY PRN PO CONSTIPATION; Start 06/10/16 at 07:30 Ferrous Sulfate 325 mg 325 mg BID PO Last administered on 06/20/16 20:40; Admin Dose 325 MG; Start 06/10/16 at 21:00 Potassium Chloride/Dextrose/ Sod Cl (D5-1/2ns + KCl 20 Meq) 1,000 ml @ 60 mls/ hr [id number] IV Last administered on 06/21/16 03:57; Admin Dose 60 MLS/HR; Start 06/11/16 at 16:00 Hydromorphone HCl (Dilaudid FLAP LINING BINDER) 1 MG/HR CONTINUOUS RATE 1... Q4PCA IV Last administered on 06/21/16 11:08; Admin Dose 6 MG; Start 06/12/16 at 21:05 Methadone HCl (Methadone Liq (Ped)) 2 mg Q6 PO Last administered on 06/21/16 11:09; Admin Dose 2 MG; Start 06/13/16 at 14:00 Nitroglycerin (Nitroglycerin (Sl Tab) 0.4 Mg) 1 tab Q5M PRN SL ANGINA Last administered on 06/17/16 11:33; Admin Dose 1 TAB; Start 06/15/16 at 22:47 Methylprednisolone Sodium Succinate (Solu-Medrol) 40 mg Q12 IV Last administered on 06/21/16 09:17; Admin Dose 40 MG; Start 06/16/16 at 21:00 Apixaban (Eliquis) 10 mg BID PO Last administered on 06/20/16 20:41; Admin Dose 10 MG; Start 06/19/16 at 12:00; Stop 06/25/16 at 23:00 Apixaban (Eliquis) 5 mg BID PO ; Start 06/26/16 at 09:00 Diltiazem HCl (Cardizem Cd) 120 mg DAILY PO ; Start 06/21/16 at 09:00 Metoprolol Tartrate (Lopressor) 25 mg BID PO Last administered on 06/20/16 20: 42; Admin Dose 25 MG; Start 06/20/16 at 21:00 Prochlorperazine (Compazine) 5 mg Q4H PRN PO NAUSEA AND/OR VOMITING Last administered on 06/21/16 09:17; Admin Dose 5 MG; Start 06/20/16 at 14:00 Fluticasone Propionate (Flonase 0.05% Nasal) 1 spray BID NASAL ; Start 06/21/16 at 12:00 LISSET BABIN M.D. Jun 21, 2016 12:34
--- NOTE | 2016-06-21 13:04 | CONS ---
Date/Time of Note Date/Time of Note DATE: 06/21/16 TIME: 13:02 Assessment/Plan Assessment/Plan Additional Assessment/Plan Tachycardia Pulmonary emboli Stomach cancer with metastases DVT Preserved ejection fraction Pleural effusion and abdominal ascites -Patient with episodes of atrial tachycardia seen. Unfortunately, she refused her medications this morning. Would give her beta-surinder and Cardizem now. Consultation Date/Type/Reason Admit Date/Time Jun 10, 2016 at 01:43 Type of Consultation: cv Referring Provider: NAYELY LINTON GROOVER OPERATOR 24 HR Interval Summary Free Text/Dictation Patient complaining of brief palpitations this morning. Shortness of breath is better. Exam/Review of Systems Vital Signs Vitals Vital Signs Date Time Temp Pulse Resp B/P Pulse Ox O2 Delivery O2 Flow Rate FiO2 06/21/16 12:17 98.0 89 18 147/80 98 06/21/16 08:31 30 06/18/16 09:27 High Flow Intake and Output 06/20/16 06/20/16 06/21/16 15:00 23:00 07:00 Intake Total 950 ml 720 ml Output Total 400 ml Balance 550 ml 720 ml Exam Dyspnea with extensively speaking Constitutional: alert, oriented Head: normocephalic Neck: supple Respiratory: other (Coarse breath sounds bilaterally, no wheezing) Cardiovascular: other (S1-S2 heard), regular rate and rhythm Gastrointestinal: bowel sounds, other (No guarding), soft, tender (Discomfort with palpation) Extremities: edema (Trace) Results Result Diagram: 06/18/1651706/18/1618 Medications Medications Current Medications Ondansetron HCl (Zofran Inj) 4 mg Q6H PRN IV NAUSEA AND/OR VOMITING Last administered on 06/21/16 06:05; Admin Dose 4 MG; Start 06/10/16 at 07:30 Acetaminophen (Tylenol Tab) 650 mg Q6H PRN PO PAIN LEVEL 1-3 OR FEVER Last administered on 06/16/16 22:50; Admin Dose 650 MG; Start 06/10/16 at 07:30 Famotidine (Pepcid Iv) 20 mg Q12 IV Last administered on 06/21/16 09:17; Admin Dose 20 MG; Start 06/10/16 at 09:00 Docusate Sodium (Colace) 100 mg Q12H PRN PO CONSTIPATION Last administered on 06:04; Admin Dose 100 MG; Start 06/10/16 at 07:30 Polyethylene Glycol (Miralax) 8.5 gm DAILY PRN PO CONSTIPATION; Start 06/10/16 at 07:30 Ferrous Sulfate 325 mg 325 mg BID PO Last administered on 06/20/16 20:40; Admin Dose 325 MG; Start 06/10/16 at 21:00 Potassium Chloride/Dextrose/ Sod Cl (D5-1/2ns + KCl 20 Meq) 1,000 ml @ 60 mls/ hr [id number] IV Last administered on 06/21/16 03:57; Admin Dose 60 MLS/HR; Start 06/11/16 at 16:00 Hydromorphone HCl (Dilaudid GUEST EXPERIENCE REPRESENTATIVE) 1 MG/HR CONTINUOUS RATE 1... Q4PCA IV Last administered on 06/21/16 11:08; Admin Dose 6 MG; Start 06/12/16 at 21:05 Methadone HCl (Methadone Liq (Ped)) 2 mg Q6 PO Last administered on 06/21/16 11:09; Admin Dose 2 MG; Start 06/13/16 at 14:00 Nitroglycerin (Nitroglycerin (Sl Tab) 0.4 Mg) 1 tab Q5M PRN SL ANGINA Last administered on 06/17/16 11:33; Admin Dose 1 TAB; Start 06/15/16 at 22:47 Methylprednisolone Sodium Succinate (Solu-Medrol) 40 mg Q12 IV Last administered on 06/21/16 09:17; Admin Dose 40 MG; Start 06/16/16 at 21:00 Apixaban (Eliquis) 10 mg BID PO Last administered on 06/20/16 20:41; Admin Dose 10 MG; Start 06/19/16 at 12:00; Stop 06/25/16 at 23:00 Apixaban (Eliquis) 5 mg BID PO ; Start 06/26/16 at 09:00 Diltiazem HCl (Cardizem Cd) 120 mg DAILY PO ; Start 06/21/16 at 09:00 Metoprolol Tartrate (Lopressor) 25 mg BID PO Last administered on 06/20/16 20: 42; Admin Dose 25 MG; Start 06/20/16 at 21:00 Prochlorperazine (Compazine) 5 mg Q4H PRN PO NAUSEA AND/OR VOMITING Last administered on 06/21/16t 09:17; Admin Dose 5 MG; Start 06/20/16 at 14:00 Fluticasone Propionate (Flonase 0.05% Nasal) 1 spray BID NASAL ; Start 06/21/16 at 12:00 José Baez DO Jun 21, 2016 13:04
[2016-06-21] MEDS: FLUTICASONE 0.05% 16 GM NAS SPRAY NASAL SCH ×2 (13:08→23:22)
--- NOTE | 2016-06-21 13:57 | RADRPT ---
PROCEDURE: XR Chest. CLINICAL INDICATION: Pleural effusion TECHNIQUE: Chest AP portable. COMPARISON: 06/18/2016 FINDINGS: The mediastinal structures are unremarkable. The heart is normal in size and configuration. The pu lmonary vascularity is normal. There are low lung volumes. There is no change in the RLL patchy co nsolidation/subsegmental atelectasis. There is no change in the left basilar subsegmental atelectas is. There is no change in the bilateral pleural effusions. The axial skeleton is unremarkable. IMPRESSION: Low lung volumes. No change in RLL patchy consolidation/subsegmental atelectasis No change in left basilar subsegmental atelectasis. No change in bilateral pleural effusions RPTAT: [facility]DB .Jason Fenton MD, Date Time Electronically viewed and signed by .Jason Fenton MD, on 06/21/2016 13:56 .B/
--- NOTE | 2016-06-21 15:04 | PN ---
Date/Time of Note Date/Time of Note DATE: 06/21/16 TIME: 14:59 Assessment/Plan VTE Prophylaxis VTE Prophylaxis Intervention: LMWH Lines/Catheters IV C[facility]ter Type (from [facility]): Saline Lock Urinary Cath still in place: Yes Reason Cath still needed: other (indicate) Assessment/Plan Chief Complaint/Hosp Course Assessment and plan 1. Pulmonary embolism . Continue on anticoagulation. Continue on O2. 2. Left distal superficial femoral vein DVT. Continue anticoagulation. Vascular surgeon is following. No recommendation for IVC filter given patient's advanced malignancy and hypercoagulability secondary to underlying malignancy 3. Abdominal pain with ascites likely malignant in origin. Patient did receive paracentesis. We'll provide as needed 4. History of stomach cancer with malignant ascites. Palliative care physician following. Oncologist following. No plan for further chemotherapy given patient' s health condition. Follow-up with oncologist recommendations 5. Iron deficiency anemia. Continue iron supplement 6. Bilateral pleural effusions. Continue on diuretic 7. Acute respiratory failure. Continue insulin bronchodilators. Continue pulmonology recommendations 8. GERD prophylaxis: H2 surinder Disposition and plan: Still remains on hi-derik. titrate down as tolerated. prognosis poor. follow up with pulmonology recs Discussed plan of care with Dr. Banda Problems: Subjective 24 Hr Interval Summary Free Text/Dictation Still with reported shortness of breath. Remains on high flow O2 Exam/Review of Systems Vital Signs Vitals Vital Signs Date Time Temp Pulse Resp B/P Pulse Ox O2 Delivery O2 Flow Rate FiO2 06/21/16 13:06 88 06/21/16 13:03 18 06/21/16 12:17 98.0 147/80 98 06/21/16 08:31 30 06/18/16 09:27 High Flow Intake and Output 06/20/16 06/20/16 06/21/16 15:00 23:00 07:00 Intake Total 950 ml 720 ml Output Total 400 ml Balance 550 ml 720 ml Exam General: No acute signs or symptoms of distress Eyes: pupils equal round, Anicteric sclera Neck: Supple nontender, no JVD Cardiac: S1, S2 auscultated, regular rhythm and rate Pulmonary: Diminished bilaterally GI: Protuberant Extremities: Edema bilateral lower extremities Skin: Clean dry and intact Neurologic: Alert to person place and time and situation Results Result Diagram: 2/13/17 0518 2/13/17 0518 Medications Medications Current Medications Ondansetron HCl (Zofran Inj) 4 mg Q6H PRN IV NAUSEA AND/OR VOMITING Last administered on 06/21/16 06:05; Admin Dose 4 MG; Start 06/10/16 at 07:30 Acetaminophen (Tylenol Tab) 650 mg Q6H PRN PO PAIN LEVEL 1-3 OR FEVER Last administered on 06/16/16 22:50; Admin Dose 650 MG; Start 06/10/16 at 07:30 Famotidine (Pepcid Iv) 20 mg Q12 IV Last administered on 06/21/16 09:17; Admin Dose 20 MG; Start 06/10/16 at 09:00 Docusate Sodium (Colace) 100 mg Q12H PRN PO CONSTIPATION Last administered on 06:04; Admin Dose 100 MG; Start 06/10/16 at 07:30 Polyethylene Glycol (Miralax) 8.5 gm DAILY PRN PO CONSTIPATION; Start 06/10/16 at 07:30 Ferrous Sulfate 325 mg 325 mg BID PO Last administered on 06/20/16 20:40; Admin Dose 325 MG; Start 06/10/16 at 21:00 Potassium Chloride/Dextrose/ Sod Cl (D5-1/2ns + KCl 20 Meq) 1,000 ml @ 60 mls/ hr [id number] IV Last administered on 06/21/16 03:57; Admin Dose 60 MLS/HR; Start 06/11/16 at 16:00 Hydromorphone HCl (Dilaudid MIXER OPERATOR VACUUM PAN SALT) 1 MG/HR CONTINUOUS RATE 1... Q4PCA IV Last administered on 06/21/16 11:08; Admin Dose 6 MG; Start 06/12/16 at 21:05 Methadone HCl (Methadone Liq (Ped)) 2 mg Q6 PO Last administered on 06/21/16 11:09; Admin Dose 2 MG; Start 06/13/16 at 14:00 Nitroglycerin (Nitroglycerin (Sl Tab) 0.4 Mg) 1 tab Q5M PRN SL ANGINA Last administered on 06/17/16 11:33; Admin Dose 1 TAB; Start 06/15/16 at 22:47 Methylprednisolone Sodium Succinate (Solu-Medrol) 40 mg Q12 IV Last administered on 06/21/16 09:17; Admin Dose 40 MG; Start 06/16/16 at 21:00 Apixaban (Eliquis) 10 mg BID PO Last administered on 06/20/16 20:41; Admin Dose 10 MG; Start 06/19/16 at 12:00; Stop 06/25/16 at 23:00 Apixaban (Eliquis) 5 mg BID PO ; Start 06/26/16 at 09:00 Diltiazem HCl (Cardizem Cd) 120 mg DAILY PO Last administered on 06/21/16 13: 10; Admin Dose 120 MG; Start 06/21/16 at 09:00 Metoprolol Tartrate (Lopressor) 25 mg BID PO Last administered on 06/21/16 13: 11; Admin Dose 25 MG; Start 06/20/16 at 21:00 Prochlorperazine (Compazine) 5 mg Q4H PRN PO NAUSEA AND/OR VOMITING Last administered on 06/21/16 09:17; Admin Dose 5 MG; Start 06/20/16 at 14:00 Fluticasone Propionate (Flonase 0.05% Nasal) 1 spray BID NASAL Last administered on 06/21/16 13:08; Admin Dose 1 SPRAY; Start 06/21/16 at 12:00 Furosemide (Lasix) 20 mg DAILY PO ; Start 06/22/16 at 09:00 CARMEN BHATTI Jun 21, 2016 15:04
[2016-06-22] VITALS (12 sets, daily range): BP systolic 92–120; BP diastolic 63–81; PULSE 74–90; RESP 18–19
[2016-06-22] MEDS: METHADONE (1 MG/1 ML PO SYG) PO SCH ×4 (00:59→18:05)
[2016-06-22] MEDS: HYDROmorphONE 0.2 MG/ML PCA IV SCH ×5 (02:55→23:11)
[2016-06-22] MEDS: LEVALBUTEROL (NEB) 0.63 MG/3 ML AMP HHN SCH ×2 (07:47→15:48)
[2016-06-22 08:24] LABS: POTASSIUM 4.1 mmol/L (3.5-5.1)
[2016-06-22 08:27] LABS: CREATININE 0.45 mg/dl (0.44-1.00)
[2016-06-22 08:28] LABS: CALCIUM 8.7 mg/dl (8.4-10.2)
[2016-06-22] MEDS: DILTIAZEM (CD) 120 MG CAP PO SCH (09:22)
[2016-06-22] MEDS: FUROSEMIDE 20 MG TAB PO SCH (09:23)
[2016-06-22] MEDS: METHYLPREDNISOLONE 40 MG INJ IV SCH ×2 (09:23→21:26)
[2016-06-22] MEDS: APIXABAN 5 MG TABLET PO SCH ×2 (09:23→21:26)
[2016-06-22] MEDS: FAMOTIDINE 20 MG INJ IV SCH ×2 (09:23→21:25)
[2016-06-22] MEDS: METOPROLOL 50 MG TAB PO SCH ×2 (09:26→21:00)
--- NOTE | 2016-06-22 09:45 | PN ---
Date/Time of Note Date/Time of Note DATE: 06/22/16 TIME: 09:42 Assessment/Plan VTE Prophylaxis VTE Prophylaxis Intervention: LMWH Lines/Catheters IV Catheter Type (from Nrs): Peripheral IV Urinary Cath still in place: Yes Reason Cath still needed: other (indicate) (monitor I&O) Assessment/Plan Chief Complaint/Hosp Course Assessment and plan 1. Pulmonary embolism . Continue on anticoagulation. Continue on O2. 2. Left distal superficial femoral vein DVT. Continue anticoagulation. Vascular surgeon is following. No recommendation for IVC filter given patient's advanced malignancy and hypercoagulability secondary to underlying malignancy 3. Abdominal pain with ascites likely malignant in origin. Patient did receive paracentesis. We'll provide as needed 4. History of stomach cancer with malignant ascites. Palliative care physician following. Oncologist following. No plan for further chemotherapy given patient' s health condition. Follow-up with oncologist recommendations. 5. Iron deficiency anemia. Continue iron supplement 6. Bilateral pleural effusions. Continue on diuretic 7. Acute respiratory failure. Continue insulin bronchodilators. Continue pulmonology recommendations 8. GERD prophylaxis: H2 surinder Disposition and plan: continue trials to titrate down o2 as tolerated. Discussed with case management, hospice unable to accept patient while still with high o2 demand. Follow up with wet process operator marcial for optimizing patient's respiratory status. prognosis poor Discussed plan of care with Dr. Banda Problems: Subjective 24 Hr Interval Summary Free Text/Dictation remains on hi-derik o2. still with some shortness of breath Exam/Review of Systems Vital Signs Vitals Vital Signs Date Time Temp Pulse Resp B/P Pulse Ox O2 Delivery O2 Flow Rate FiO2 06/22/16 09:22 90 06/22/16 07:50 98 30 06/22/16 07:47 24 06/22/16 07:21 97.9 111/77 06/18/16 09:27 High Flow Intake and Output 06/21/16 06/21/16 06/22/16 15:00 23:00 07:00 Intake Total 305 ml 700 ml 864 ml Output Total 600 ml 2000 ml 1900 ml Balance -295 ml -1300 ml -1036 ml Exam General: No acute signs or symptoms of distress Eyes: pupils equal round, Anicteric sclera Neck: Supple nontender, no JVD Cardiac: S1, S2 auscultated, regular rhythm and rate Pulmonary: Diminished bilaterally GI: Protuberant Extremities: Edema bilateral lower extremities Skin: Clean dry and intact Neurologic: Alert to person place and time and situation Results Result Diagram: 06/18/16 0518 06/22/16 0615 Results 24 hrs Laboratory Tests Test 06/22/16 06:15 Anion Gap 15 Blood Urea Nitrogen 17 Calcium Level 8.7 Carbon Dioxide Level 28 Chloride Level 96 L Creatinine 0.45 Glucose Level 75 Magnesium Level 2.2 Potassium Level 4.1 Sodium Level 135 Medications Medications Current Medications Ondansetron HCl (Zofran Inj) 4 mg Q6H PRN IV NAUSEA AND/OR VOMITING Last administered on 06/21/16 06:05; Admin Dose 4 MG; Start 06/10/16 at 07:30 Acetaminophen (Tylenol Tab) 650 mg Q6H PRN PO PAIN LEVEL 1-3 OR FEVER Last administered on 06/16/16 22:50; Admin Dose 650 MG; Start 06/10/16 at 07:30 Famotidine (Pepcid Iv) 20 mg Q12 IV Last administered on 06/22/16 09:23; Admin Dose 20 MG; Start 06/10/16 at 09:00 Docusate Sodium (Colace) 100 mg Q12H PRN PO CONSTIPATION Last administered on 06:04; Admin Dose 100 MG; Start 06/10/16 at 07:30 Polyethylene Glycol (Miralax) 8.5 gm DAILY PRN PO CONSTIPATION; Start 06/10/16 at 07:30 Ferrous Sulfate 325 mg 325 mg BID PO Last administered on 06/20/16 20:40; Admin Dose 325 MG; Start 06/10/16 at 21:00 Potassium Chloride/Dextrose/ Sod Cl (D5-1/2ns + KCl 20 Meq) 1,000 ml @ 60 mls/ hr [id number] IV Last administered on 06/21/16 23:23; Admin Dose 60 MLS/HR; Start 06/11/16 at 16:00 Hydromorphone HCl (Dilaudid HOSPITALITY WORKERS) 1 MG/HR CONTINUOUS RATE 1... Q4PCA IV Last administered on 06/22/16 07:30; Admin Dose 6 MG; Start 06/12/16 at 21:05 Methadone HCl (Methadone Liq (Ped)) 2 mg Q6 PO Last administered on 06/22/16 05:39; Admin Dose 2 MG; Start 06/13/16 at 14:00 Nitroglycerin (Nitroglycerin (Sl Tab) 0.4 Mg) 1 tab Q5M PRN SL ANGINA Last administered on 06/17/16 11:33; Admin Dose 1 TAB; Start 06/15/16 at 22:47 Methylprednisolone Sodium Succinate (Solu-Medrol) 40 mg Q12 IV Last administered on 06/22/16 09:23; Admin Dose 40 MG; Start 06/16/16 at 21:00 Apixaban (Eliquis) 10 mg BID PO Last administered on 06/22/16 09:23; Admin Dose 10 MG; Start 06/19/16 at 12:00; Stop 06/25/16 at 23:00 Apixaban (Eliquis) 5 mg BID PO ; Start 06/26/16 at 09:00 Diltiazem HCl (Cardizem Cd) 120 mg DAILY PO Last administered on 06/22/16 09: 22; Admin Dose 120 MG; Start 06/21/16 at 09:00 Metoprolol Tartrate (Lopressor) 25 mg BID PO Last administered on 06/22/16 09: 26; Admin Dose 25 MG; Start 06/20/16 at 21:00 Prochlorperazine (Compazine) 5 mg Q4H PRN PO NAUSEA AND/OR VOMITING Last administered on 06/21/16 09:17; Admin Dose 5 MG; Start 06/20/16 at 14:00 Fluticasone Propionate (Flonase 0.05% Nasal) 1 spray BID NASAL Last administered on 06/21/16 13:08; Admin Dose 1 SPRAY; Start 06/21/16 at 12:00 Furosemide (Lasix) 20 mg DAILY PO Last administered on 06/22/16 09:23; Admin Dose 20 MG; Start 06/22/16 at 09:00 CARMEN BHATTI Jun 22, 2016 09:45
[2016-06-22] MEDS: FERROUS SULFATE (EC) 325 MG TAB PO SCH ×2 (11:00→21:26)
[2016-06-22] MEDS: FLUTICASONE 0.05% 16 GM NAS SPRAY NASAL SCH ×2 (12:00→21:26)
--- NOTE | 2016-06-22 12:20 | CONS ---
Date/Time of Note Date/Time of Note DATE: 06/22/16 TIME: 12:19 Assessment/Plan Assessment/Plan Additional Assessment/Plan Tachycardia Pulmonary emboli Stomach cancer with metastases DVT Preserved ejection fraction Pleural effusion and abdominal ascites -Patient with less episodes of tachycardia when compliant with medication. Continue as tolerated. Maintenance diuretics as blood pressure and renal function permits. Consultation Date/Type/Reason Admit Date/Time Jun 10, 2016 at 01:43 Type of Consultation: cv Referring Provider: NAYELY LINTON FAMILY AND CONSUMER SCIENCES PROFESSOR 24 HR Interval Summary Free Text/Dictation Shortness of breath is slightly better. Denies palpitations Exam/Review of Systems Vital Signs Vitals Vital Signs Date Time Temp Pulse Resp B/P Pulse Ox O2 Delivery O2 Flow Rate FiO2 06/22/16 12:05 74 06/22/16 11:01 98.5 18 96/63 100 06/22/16 07:50 30 06/18/16 09:27 High Flow Intake and Output 06/21/16 06/21/16 06/22/16 15:00 23:00 07:00 Intake Total 305 ml 700 ml 864 ml Output Total 600 ml 2000 ml 1900 ml Balance -295 ml -1300 ml -1036 ml Exam No apparent distress Constitutional: alert, obese, oriented Head: normocephalic Neck: supple Respiratory: other (Coarse breath sounds bilaterally, no wheezing) Cardiovascular: other (S1-S2 heard), regular rate and rhythm Gastrointestinal: bowel sounds, non-tender, soft Extremities: edema Results Result Diagram: 06/18/16 0518 06/22/16 0615 Results 24 hrs Laboratory Tests Test 06/22/16 06:15 Anion Gap 15 Blood Urea Nitrogen 17 Calcium Level 8.7 Carbon Dioxide Level 28 Chloride Level 96 L Creatinine 0.45 Glucose Level 75 Magnesium Level 2.2 Potassium Level 4.1 Sodium Level 135 Medications Medications Current Medications Ondansetron HCl (Zofran Inj) 4 mg Q6H PRN IV NAUSEA AND/OR VOMITING Last administered on 06/21/16 06:05; Admin Dose 4 MG; Start 06/10/16 at 07:30 Acetaminophen (Tylenol Tab) 650 mg Q6H PRN PO PAIN LEVEL 1-3 OR FEVER Last administered on 06/16/16 22:50; Admin Dose 650 MG; Start 06/10/16 at 07:30 Famotidine (Pepcid Iv) 20 mg Q12 IV Last administered on 06/22/16 09:23; Admin Dose 20 MG; Start 06/10/16 at 09:00 Docusate Sodium (Colace) 100 mg Q12H PRN PO CONSTIPATION Last administered on 06:04; Admin Dose 100 MG; Start 06/10/16 at 07:30 Polyethylene Glycol (Miralax) 8.5 gm DAILY PRN PO CONSTIPATION; Start 06/10/16 at 07:30 Ferrous Sulfate 325 mg 325 mg BID PO Last administered on 06/20/16 20:40; Admin Dose 325 MG; Start 06/10/16 at 21:00 Potassium Chloride/Dextrose/ Sod Cl (D5-1/2ns + KCl 20 Meq) 1,000 ml @ 60 mls/ hr [id number] IV Last administered on 06/21/16 23:23; Admin Dose 60 MLS/HR; Start 06/11/16 at 16:00 Hydromorphone HCl (Dilaudid MEETING MANAGER) 1 MG/HR CONTINUOUS RATE 1... Q4PCA IV Last administered on 06/22/16 07:30; Admin Dose 6 MG; Start 06/12/16 at 21:05 Methadone HCl (Methadone Liq (Ped)) 2 mg Q6 PO Last administered on 06/22/16 05:39; Admin Dose 2 MG; Start 06/13/16 at 14:00 Nitroglycerin (Nitroglycerin (Sl Tab) 0.4 Mg) 1 tab Q5M PRN SL ANGINA Last administered on 06/17/16 11:33; Admin Dose 1 TAB; Start 06/15/16 at 22:47 Methylprednisolone Sodium Succinate (Solu-Medrol) 40 mg Q12 IV Last administered on 06/22/16 09:23; Admin Dose 40 MG; Start 06/16/16 at 21:00 Apixaban (Eliquis) 10 mg BID PO Last administered on 06/22/16 09:23; Admin Dose 10 MG; Start 06/19/16 at 12:00; Stop 06/25/16 at 23:00 Apixaban (Eliquis) 5 mg BID PO ; Start 06/26/16 at 09:00 Diltiazem HCl (Cardizem Cd) 120 mg DAILY PO Last administered on 06/22/16 09: 22; Admin Dose 120 MG; Start 06/21/16 at 09:00 Metoprolol Tartrate (Lopressor) 25 mg BID PO Last administered on 06/22/16 09: 26; Admin Dose 25 MG; Start 06/20/16 at 21:00 Prochlorperazine (Compazine) 5 mg Q4H PRN PO NAUSEA AND/OR VOMITING Last administered on 06/21/16 09:17; Admin Dose 5 MG; Start 06/20/16 at 14:00 Fluticasone Propionate (Flonase 0.05% Nasal) 1 spray BID NASAL Last administered on 06/21/16 13:08; Admin Dose 1 SPRAY; Start 06/21/16 at 12:00 Furosemide (Lasix) 20 mg DAILY PO Last administered on 06/22/16 09:23; Admin Dose 20 MG; Start 06/22/16 at 09:00 José Baez DO Jun 22, 2016 12:20
--- NOTE | 2016-06-22 13:32 | CONS ---
Date/Time of Note Date/Time of Note DATE: 06/22/16 TIME: 13:30 Assessment/Plan Assessment/Plan Chief Complaint/Hosp Course 36 yo female with metastatic gastric cancer who has failed multiple lines of chemotherapy who now presents with shortness of breath secondary to pulmonary embolism 1. Metastatic gastric cancer - pt has failed multiple lines of chemotherapy and is no longer a candidate for chemotherapy given her frail state - She carries a very poor prognosis. - agree with home hospice. pt will need home o2 2. Left lower extremity deep vein thrombosis and pulmonary embolism in bilateral pulmonary arteries - given her poor prognosis agree with holding IVC filter placement for now. If her clinical situation improves can consider IVC filter at that time - agree with Lovenox 100mg SQ q 12 Approximately 40 min were spent at patient's bedside and in coordination fo her care Problems: Consultation Date/Type/Reason Admit Date/Time Jun 10, 2016 at 01:43 Initial Consult Date 06/15/16 Type of Consultation: Hematology Reason for Consultation metastatic gastric cancer Referring Provider: NAYELY LINTON SUPERVISOR WOUND 24 HR Interval Summary Free Text/Dictation pt states she still has difficulty breathing but is more comfortable with O2 Exam/Review of Systems Vital Signs Vitals Vital Signs Date Time Temp Pulse Resp B/P Pulse Ox O2 Delivery O2 Flow Rate FiO2 06/22/16 12:05 74 06/22/16 11:01 98.5 18 96/63 100 06/22/16 07:50 30 06/18/16 09:27 High Flow Intake and Output 06/21/16 06/21/16 06/22/16 15:00 23:00 07:00 Intake Total 305 ml 700 ml 864 ml Output Total 600 ml 2000 ml 1900 ml Balance -295 ml -1300 ml -1036 ml Exam Constitutional: alert, oriented Psych: no complaints Head: atraumatic, normocephalic Eyes: nl conjunctiva ENMT: nl external ears & nose, other (face mask) Neck: non-tender, supple Respiratory: crackles/rales, diminished breath sounds, normal air movement Cardiovascular: nl pulses, regular rate and rhythm Gastrointestinal: soft Musculoskeletal: nl extremities to inspection, nl gait and stance Results Result Diagram: 06/18/16 0518 06/22/16 0615 Results 24 hrs Laboratory Tests Test 06/22/16 06:15 Anion Gap 15 Blood Urea Nitrogen 17 Calcium Level 8.7 Carbon Dioxide Level 28 Chloride Level 96 L Creatinine 0.45 Glucose Level 75 Magnesium Level 2.2 Potassium Level 4.1 Sodium Level 135 Medications Medications Current Medications Ondansetron HCl (Zofran Inj) 4 mg Q6H PRN IV NAUSEA AND/OR VOMITING Last administered on 06/21/16 06:05; Admin Dose 4 MG; Start 06/10/16 at 07:30 Acetaminophen (Tylenol Tab) 650 mg Q6H PRN PO PAIN LEVEL 1-3 OR FEVER Last administered on 06/16/16 22:50; Admin Dose 650 MG; Start 06/10/16 at 07:30 Famotidine (Pepcid Iv) 20 mg Q12 IV Last administered on 06/22/16 09:23; Admin Dose 20 MG; Start 06/10/16 at 09:00 Docusate Sodium (Colace) 100 mg Q12H PRN PO CONSTIPATION Last administered on 06:04; Admin Dose 100 MG; Start 06/10/16 at 07:30 Polyethylene Glycol (Miralax) 8.5 gm DAILY PRN PO CONSTIPATION; Start 06/10/16 at 07:30 Ferrous Sulfate 325 mg 325 mg BID PO Last administered on 06/20/16 20:40; Admin Dose 325 MG; Start 06/10/16 at 21:00 Potassium Chloride/Dextrose/ Sod Cl (D5-1/2ns + KCl 20 Meq) 1,000 ml @ 60 mls/ hr [id number] IV Last administered on 06/21/16 23:23; Admin Dose 60 MLS/HR; Start 06/11/16 at 16:00 Hydromorphone HCl (Dilaudid FURNITURE CRATER) 1 MG/HR CONTINUOUS RATE 1... Q4PCA IV Last administered on 06/22/16 12:54; Admin Dose 6 MG; Start 06/12/16 at 21:05 Methadone HCl (Methadone Liq (Ped)) 2 mg Q6 PO Last administered on 06/22/16 13:03; Admin Dose 2 MG; Start 06/13/16 at 14:00 Nitroglycerin (Nitroglycerin (Sl Tab) 0.4 Mg) 1 tab Q5M PRN SL ANGINA Last administered on 06/17/16 11:33; Admin Dose 1 TAB; Start 06/15/16 at 22:47 Methylprednisolone Sodium Succinate (Solu-Medrol) 40 mg Q12 IV Last administered on 06/22/16 09:23; Admin Dose 40 MG; Start 06/16/16 at 21:00 Apixaban (Eliquis) 10 mg BID PO Last administered on 06/22/16 09:23; Admin Dose 10 MG; Start 06/19/16 at 12:00; Stop 06/25/16 at 23:00 Apixaban (Eliquis) 5 mg BID PO ; Start 06/26/16 at 09:00 Diltiazem HCl (Cardizem Cd) 120 mg DAILY PO Last administered on 06/22/16 09: 22; Admin Dose 120 MG; Start 06/21/16 at 09:00 Metoprolol Tartrate (Lopressor) 25 mg BID PO Last administered on 06/22/16 09: 26; Admin Dose 25 MG; Start 06/20/16 at 21:00 Prochlorperazine (Compazine) 5 mg Q4H PRN PO NAUSEA AND/OR VOMITING Last administered on 06/21/16 09:17; Admin Dose 5 MG; Start 06/20/16 at 14:00 Fluticasone Propionate (Flonase 0.05% Nasal) 1 spray BID NASAL Last administered on 06/21/16 13:08; Admin Dose 1 SPRAY; Start 06/21/16 at 12:00 Furosemide (Lasix) 20 mg DAILY PO Last administered on 06/22/16 09:23; Admin Dose 20 MG; Start 06/22/16 at 09:00 LISSET BABIN M.D. Jun 22, 2016 13:32
--- NOTE | 2016-06-22 13:40 | CONS ---
Date/Time of Note Date/Time of Note DATE: 06/22/16 TIME: 13:37 Assessment/Plan Assessment/Plan Additional Assessment/Plan Chest x-ray was reviewed from yesterday which is showing very minimal bilateral lower lobe atelectasis/effusions. Next Assessment and recommendations; 1. Patient admitted with metastatic gastric cancer with significant ascites status post large volume paracentesis where 5 L of fluid was removed without any evidence of recurrence. Next 2. DVT and PE. 3. 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 4. Chronic pain. 5. Hypertension Currently no evidence of any significant pleural effusions. Any current treatment. Patient to be discharged to a group home. Continuation of high flow FiO2 for O2 saturation maintenance. Prognosis is poor. We are going to sign off. Thanks for the consult. Consultation Date/Type/Reason Admit Date/Time Jun 10, 2016 at 01:43 Initial Consult Date 06/15/16 Type of Consultation: Pulmonary Referring Provider: NAYELY LINTON NP 24 HR Interval Summary Free Text/Dictation Patient's condition is stable. Complains of mild abdominal pain without any nausea vomiting. Complains of stable shortness of breath. Denies any chest pain, sputum production, hemoptysis. General examination; young lady currently in no distress awake and alert. Exam/Review of Systems Vital Signs Vitals Vital Signs Date Time Temp Pulse Resp B/P Pulse Ox O2 Delivery O2 Flow Rate FiO2 06/22/16 12:05 74 06/22/16 11:01 98.5 18 96/63 100 06/22/16 07:50 30 06/18/16 09:27 High Flow Intake and Output 06/21/16 06/21/16 06/22/16 15:00 23:00 07:00 Intake Total 305 ml 700 ml 864 ml Output Total 600 ml 2000 ml 1900 ml Balance -295 ml -1300 ml -1036 ml Exam H EENT examination; supple neck, no JVD. No lymphadenopathy. Pharynx is clear. Dentition is good. Chest examination; diminished breath on lung bases bilaterally otherwise clear. S1-S2 audible, no murmurs. Regular rhythm. Abdomen examination; soft, there is mild epigastric tenderness. Bowel sounds audible. Extremity examination; no peripheral edema. B2B OUTSIDE SALES REPRESENTATIVE examination; no focal deficit. Results Result Diagram: 06/18/1618 06/22/16 0615 Results 24 hrs Laboratory Tests Test 06/22/16 06:15 Anion Gap 15 Blood Urea Nitrogen 17 Calcium Level 8.7 Carbon Dioxide Level 28 Chloride Level 96 L Creatinine 0.45 Glucose Level 75 Magnesium Level 2.2 Potassium Level 4.1 Sodium Level 135 Medications Medications Current Medications Ondansetron HCl (Zofran Inj) 4 mg Q6H PRN IV NAUSEA AND/OR VOMITING Last administered on 06/21/16 06:05; Admin Dose 4 MG; Start 06/10/16 at 07:30 Acetaminophen (Tylenol Tab) 650 mg Q6H PRN PO PAIN LEVEL 1-3 OR FEVER Last administered on 06/16/16 22:50; Admin Dose 650 MG; Start 06/10/16 at 07:30 Famotidine (Pepcid Iv) 20 mg Q12 IV Last administered on 06/22/16 09:23; Admin Dose 20 MG; Start 06/10/16 at 09:00 Docusate Sodium (Colace) 100 mg Q12H PRN PO CONSTIPATION Last administered on 06:04; Admin Dose 100 MG; Start 06/10/16 at 07:30 Polyethylene Glycol (Miralax) 8.5 gm DAILY PRN PO CONSTIPATION; Start 06/10/16 at 07:30 Ferrous Sulfate 325 mg 325 mg BID PO Last administered on 06/20/16 20:40; Admin Dose 325 MG; Start 06/10/16 at 21:00 Potassium Chloride/Dextrose/ Sod Cl (D5-1/2ns + KCl 20 Meq) 1,000 ml @ 60 mls/ hr [id number] IV Last administered on 06/21/16 23:23; Admin Dose 60 MLS/HR; Start 06/11/16 at 16:00 Hydromorphone HCl (Dilaudid SEED TESTER) 1 MG/HR CONTINUOUS RATE 1... Q4PCA IV Last administered on 06/22/16 12:54; Admin Dose 6 MG; Start 06/12/16 at 21:05 Methadone HCl (Methadone Liq (Ped)) 2 mg Q6 PO Last administered on 06/22/16 13:03; Admin Dose 2 MG; Start 06/13/16 at 14:00 Nitroglycerin (Nitroglycerin (Sl Tab) 0.4 Mg) 1 tab Q5M PRN SL ANGINA Last administered on 06/17/16 11:33; Admin Dose 1 TAB; Start 06/15/16 at 22:47 Methylprednisolone Sodium Succinate (Solu-Medrol) 40 mg Q12 IV Last administered on 06/22/16 09:23; Admin Dose 40 MG; Start 06/16/16 at 21:00 Apixaban (Eliquis) 10 mg BID PO Last administered on 06/22/16 09:23; Admin Dose 10 MG; Start 06/19/16 at 12:00; Stop 06/25/16 at 23:00 Apixaban (Eliquis) 5 mg BID PO ; Start 06/26/16 at 09:00 Diltiazem HCl (Cardizem Cd) 120 mg DAILY PO Last administered on 06/22/16 09: 22; Admin Dose 120 MG; Start 06/21/16 at 09:00 Metoprolol Tartrate (Lopressor) 25 mg BID PO Last administered on 06/22/16 09: 26; Admin Dose 25 MG; Start 06/20/16 at 21:00 Prochlorperazine (Compazine) 5 mg Q4H PRN PO NAUSEA AND/OR VOMITING Last administered on 06/21/16 09:17; Admin Dose 5 MG; Start 06/20/16 at 14:00 Fluticasone Propionate (Flonase 0.05% Nasal) 1 spray BID NASAL Last administered on 06/21/16 13:08; Admin Dose 1 SPRAY; Start 06/21/16 at 12:00 Furosemide (Lasix) 20 mg DAILY PO Last administered on 06/22/16 09:23; Admin Dose 20 MG; Start 06/22/16 at 09:00 TITUS JO Jun 22, 2016 13:40
[2016-06-22] MEDS ORDERED: INSULIN ASPART [NOVOLOG] 3 ML PEN SC ONE (15:30)
[2016-06-22] MEDS: D5W-0.45 NACL + KCL 20 MEQ 1,000 ML IV SCH ×2 (22:04→23:41)
[2016-06-23] VITALS (15 sets, daily range): BP systolic 108–133; BP diastolic 69–83; PULSE 77–104; RESP 18–22
[2016-06-23] MEDS: LEVALBUTEROL (NEB) 0.63 MG/3 ML AMP HHN SCH ×3 (00:12→15:39)
[2016-06-23] MEDS: METHADONE (1 MG/1 ML PO SYG) PO SCH ×4 (00:46→17:45)
[2016-06-23] MEDS: NITROGLYCERIN (SL) 0.4 MG TAB SL PRN ×2 (00:49→09:57)
[2016-06-23] MEDS: HYDROmorphONE 0.2 MG/ML PCA IV SCH ×5 (03:20→21:05)
[2016-06-23] MEDS: DOCUSATE SODIUM 100 MG CAP PO PRN ×2 (06:05→18:27)
[2016-06-23] MEDS: POLYETHYLENE GLYCOL 17 GM PACKET PO PRN (06:05)
[2016-06-23] MEDS: FAMOTIDINE 20 MG INJ IV SCH ×2 (09:37→21:16)
[2016-06-23] MEDS: METHYLPREDNISOLONE 40 MG INJ IV SCH ×2 (09:37→21:16)
[2016-06-23] MEDS: FERROUS SULFATE (EC) 325 MG TAB PO SCH ×2 (09:38→21:17)
[2016-06-23] MEDS: APIXABAN 5 MG TABLET PO SCH ×2 (09:38→21:17)
[2016-06-23] MEDS: FUROSEMIDE 20 MG TAB PO SCH (09:48)
[2016-06-23] MEDS: DILTIAZEM (CD) 120 MG CAP PO SCH (09:48)
[2016-06-23] MEDS: FLUTICASONE 0.05% 16 GM NAS SPRAY NASAL SCH ×2 (09:48→21:18)
[2016-06-23] MEDS: METOPROLOL 50 MG TAB PO SCH ×2 (09:48→21:17)
[2016-06-23] MEDS ORDERED: morphine 2 MG INJ IV SCH (10:00)
--- NOTE | 2016-06-23 15:09 | PN ---
Date/Time of Note Date/Time of Note DATE: 06/23/16 TIME: 15:04 Assessment/Plan VTE Prophylaxis VTE Prophylaxis Intervention: other (eliqiuis) Lines/Catheters IV Catheter Type (from Nrs): Peripheral IV Urinary Cath still in place: Yes Reason Cath still needed: other (indicate) (monitor I&O) Assessment/Plan Chief Complaint/Hosp Course Assessment and plan 1. Pulmonary embolism. Continue on anticoagulation. Continue on O2. 2. Left distal superficial femoral vein DVT. Continue anticoagulation. Vascular surgeon is following. No recommendation for IVC filter given patient's advanced malignancy and hypercoagulability secondary to underlying malignancy 3. Abdominal pain with ascites likely malignant in origin. Patient did receive paracentesis. We'll provide as needed 4. History of stomach cancer with malignant ascites. Palliative care physician following. Oncologist following. No plan for further chemotherapy given patient' s health condition. Follow-up with oncologist recommendations. 5. Iron deficiency anemia. Continue iron supplement 6. Bilateral pleural effusions. Continue on diuretic 7. Acute respiratory failure. Continue insulin bronchodilators. Continue pulmonology recommendations 8. GERD prophylaxis: H2 surinder 9. Chest pain. Troponin checked today was negative. Continue with cardiology recommendations. Nitrostat when necessary Disposition and plan: Prognosis remains poor. Difficulty with placement due to high O2 demand. We'll discuss her case management for possible accepting facility. Continue inpatient monitoring Discussed plan of care with Dr. Banda Problems: Subjective 24 Hr Interval Summary Free Text/Dictation With reported chest pain this morning. Exam/Review of Systems Vital Signs Vitals Vital Signs Date Time Temp Pulse Resp B/P Pulse Ox O2 Delivery O2 Flow Rate FiO2 06/23/16 12:23 89 06/23/16 12:20 100 30 06/23/16 12:03 18 06/23/16 11:41 98.3 133/83 06/23/16 09:57 High Flow Intake and Output 06/22/16 06/22/16 06/23/16 15:00 23:00 07:00 Intake Total 800 ml 852 ml Output Total 1900 ml 250 ml Balance -1100 ml 602 ml Exam General: No acute signs or symptoms of distress Eyes: pupils equal round, Anicteric sclera Neck: Supple nontender, no JVD Cardiac: S1, S2 auscultated, regular rhythm and rate Pulmonary: Diminished bilaterally GI: Protuberant Extremities: Edema bilateral lower extremities Skin: Clean dry and intact Neurologic: Alert to person place and time and situation Results Result Diagram: 06/22/16 0615 Results 24 hrs Laboratory Tests Test 06/23/16 10:50 Troponin I < 0.012 Medications Medications Current Medications Ondansetron HCl (Zofran Inj) 4 mg Q6H PRN IV NAUSEA AND/OR VOMITING Last administered on 06/21/16 06:05; Admin Dose 4 MG; Start 06/10/16 at 07:30 Acetaminophen (Tylenol Tab) 650 mg Q6H PRN PO PAIN LEVEL 1-3 OR FEVER Last administered on 06/16/16 22:50; Admin Dose 650 MG; Start 06/10/16 at 07:30 Famotidine (Pepcid Iv) 20 mg Q12 IV Last administered on 06/23/16 09:37; Admin Dose 20 MG; Start 06/10/16 at 09:00 Docusate Sodium (Colace) 100 mg Q12H PRN PO CONSTIPATION Last administered on 06:05; Admin Dose 100 MG; Start 06/10/16 at 07:30 Polyethylene Glycol (Miralax) 8.5 gm DAILY PRN PO CONSTIPATION Last administered on 06/23/16 06:05; Admin Dose 8.5 GM; Start 06/10/16 at 07:30 Ferrous Sulfate 325 mg 325 mg BID PO Last administered on 06/23/16 09:38; Admin Dose 325 MG; Start 06/10/16 at 21:00 Potassium Chloride/Dextrose/ Sod Cl (D5-1/2ns + KCl 20 Meq) 1,000 ml @ 60 mls/ hr [id number] IV Last administered on 06/22/16 23:41; Admin Dose 60 MLS/HR; Start 06/11/16 at 16:00 Hydromorphone HCl (Dilaudid SHIRT SEWER) 1 MG/HR CONTINUOUS RATE 1... Q4PCA IV Last administered on 06/23/16 11:45; Admin Dose 6 MG; Start 06/12/16 at 21:05 Methadone HCl (Methadone Liq (Ped)) 2 mg Q6 PO Last administered on 06/23/16 11:45; Admin Dose 2 MG; Start 06/13/16 at 14:00 Nitroglycerin (Nitroglycerin (Sl Tab) 0.4 Mg) 1 tab Q5M PRN SL ANGINA Last administered on 06/23/16 09:57; Admin Dose 1 TAB; Start 06/15/16 at 22:47 Methylprednisolone Sodium Succinate (Solu-Medrol) 40 mg Q12 IV Last administered on 06/23/16 09:37; Admin Dose 40 MG; Start 06/16/16 at 21:00 Apixaban (Eliquis) 10 mg BID PO Last administered on 06/23/16 09:38; Admin Dose 10 MG; Start 06/19/16 at 12:00; Stop 06/25/16 at 23:00 Apixaban (Eliquis) 5 mg BID PO ; Start 06/26/16 at 09:00 Diltiazem HCl (Cardizem Cd) 120 mg DAILY PO Last administered on 06/23/16 09: 48; Admin Dose 120 MG; Start 06/21/16 at 09:00 Metoprolol Tartrate (Lopressor) 25 mg BID PO Last administered on 06/23/16 09: 48; Admin Dose 25 MG; Start 06/20/16 at 21:00 Prochlorperazine (Compazine) 5 mg Q4H PRN PO NAUSEA AND/OR VOMITING Last administered on 06/21/16 09:17; Admin Dose 5 MG; Start 06/20/16 at 14:00 Fluticasone Propionate (Flonase 0.05% Nasal) 1 spray BID NASAL Last administered on 06/23/16 09:48; Admin Dose 1 SPRAY; Start 06/21/16 at 12:00 Furosemide (Lasix) 20 mg DAILY PO Last administered on 06/23/16 09:48; Admin Dose 20 MG; Start 06/22/16 at 09:00 CARMEN BHATTI Jun 23, 2016 15:09
[2016-06-23] MEDS: ONDANSETRON 4 MG INJ IV PRN (16:58)
[2016-06-23] MEDS: D5W-0.45 NACL + KCL 20 MEQ 1,000 ML IV SCH (17:03)
[2016-06-24] VITALS (12 sets, daily range): BP systolic 100–122; BP diastolic 67–79; PULSE 76–113; RESP 16–20
[2016-06-24] MEDS: LEVALBUTEROL (NEB) 0.63 MG/3 ML AMP HHN SCH ×3 (00:26→15:06)
[2016-06-24] MEDS: METHADONE (1 MG/1 ML PO SYG) PO SCH ×4 (00:34→17:39)
[2016-06-24] MEDS: HYDROmorphONE 0.2 MG/ML PCA IV SCH ×6 (01:29→23:36)
[2016-06-24] MEDS: DILTIAZEM (CD) 120 MG CAP PO SCH (09:03)
[2016-06-24] MEDS: FAMOTIDINE 20 MG INJ IV SCH ×2 (09:03→20:48)
[2016-06-24] MEDS: METHYLPREDNISOLONE 40 MG INJ IV SCH ×2 (09:03→20:48)
[2016-06-24] MEDS: FERROUS SULFATE (EC) 325 MG TAB PO SCH ×2 (09:03→20:48)
[2016-06-24] MEDS: FUROSEMIDE 20 MG TAB PO SCH (09:03)
[2016-06-24] MEDS: APIXABAN 5 MG TABLET PO SCH ×2 (09:03→20:48)
[2016-06-24] MEDS: METOPROLOL 50 MG TAB PO SCH ×2 (09:04→20:50)
[2016-06-24] MEDS: FLUTICASONE 0.05% 16 GM NAS SPRAY NASAL SCH ×2 (09:05→20:51)
[2016-06-24] MEDS: D5W-0.45 NACL + KCL 20 MEQ 1,000 ML IV SCH (10:44)
[2016-06-24] MEDS: ONDANSETRON 4 MG INJ IV PRN (11:37)
--- NOTE | 2016-06-24 14:31 | PN ---
Date/Time of Note Date/Time of Note DATE: 06/24/16 TIME: 14:25 Assessment/Plan VTE Prophylaxis VTE Prophylaxis Intervention: other (eliquis) Lines/Catheters IV Catheter Type (from [facility]): Peripheral IV Urinary Cath still in place: Yes Reason Cath still needed: other (indicate) (monitor I&O) Assessment/Plan Chief Complaint/Hosp Course Assessment and plan 1. Pulmonary embolism. Continue on anticoagulation. Continue on O2. 2. Left distal superficial femoral vein DVT. Continue anticoagulation. Vascular surgeon is following. No recommendation for IVC filter given patient's advanced malignancy and hypercoagulability secondary to underlying malignancy 3. Abdominal pain with ascites likely malignant in origin. Patient did receive paracentesis. We'll provide as needed 4. History of stomach cancer with malignant ascites. Palliative care physician following. Oncologist following. No plan for further chemotherapy given patient' s health condition. Follow-up with oncologist recommendations. 5. Iron deficiency anemia. Continue iron supplement 6. Bilateral pleural effusions. Continue on diuretic 7. Acute respiratory failure. Continue insulin bronchodilators. Continue pulmonology recommendations 8. GERD prophylaxis: H2 surinder 9. Chest pain. Troponin checked today was negative. Continue with cardiology recommendations. Nitrostat when necessary Disposition and plan: Appears to be able to tolerate O2 via nasal cannula little better however still requiring intermittent use of high flow. We'll follow-up with home hospice if able to provide high flow for home. Follow-up with case management Discussed plan of care with Dr. Banda Problems: Subjective 24 Hr Interval Summary Free Text/Dictation Reports some shortness of breath . Still reported to need high flow intermittently Exam/Review of Systems Vital Signs Vitals Vital Signs Date Time Temp Pulse Resp B/P Pulse Ox O2 Delivery O2 Flow Rate FiO2 06/24/16 13:28 19 06/24/16 12:11 Nasal Cannula 6.0 06/24/16 12:03 76 06/24/16 11:05 98.1 100/72 100 06/23/16 15:44 30 Intake and Output 06/23/16 06/23/16 06/24/16 15:00 23:00 07:00 Intake Total 480 ml 1460 ml Output Total 2000 ml 500 ml Balance -1520 ml 960 ml Exam General: No acute signs or symptoms of distress Eyes: pupils equal round, Anicteric sclera Neck: Supple nontender, no JVD Cardiac: S1, S2 auscultated, regular rhythm and rate Pulmonary: Diminished bilaterally GI: Protuberant Extremities: Edema bilateral lower extremities Skin: Clean dry and intact Neurologic: Alert to person place and time and situation Results Result Diagram: 06/22/16 0615 Medications Medications Current Medications Ondansetron HCl (Zofran Inj) 4 mg Q6H PRN IV NAUSEA AND/OR VOMITING Last administered on 06/24/16 11:37; Admin Dose 4 MG; Start 06/10/16 at 07:30 Acetaminophen (Tylenol Tab) 650 mg Q6H PRN PO PAIN LEVEL 1-3 OR FEVER Last administered on 06/16/16 22:50; Admin Dose 650 MG; Start 06/10/16 at 07:30 Famotidine (Pepcid Iv) 20 mg Q12 IV Last administered on 06/24/16 09:03; Admin Dose 20 MG; Start 06/10/16 at 09:00 Docusate Sodium (Colace) 100 mg Q12H PRN PO CONSTIPATION Last administered on 18:27; Admin Dose 100 MG; Start 06/10/16 at 07:30 Polyethylene Glycol (Miralax) 8.5 gm DAILY PRN PO CONSTIPATION Last administered on 06/23/16 06:05; Admin Dose 8.5 GM; Start 06/10/16 at 07:30 Ferrous Sulfate 325 mg 325 mg BID PO Last administered on 06/24/16 09:03; Admin Dose 325 MG; Start 06/10/16 at 21:00 Potassium Chloride/Dextrose/ Sod Cl (D5-1/2ns + KCl 20 Meq) 1,000 ml @ 60 mls/ hr [id number] IV Last administered on 06/24/16 10:44; Admin Dose 60 MLS/HR; Start 06/11/16 at 16:00 Hydromorphone HCl (Dilaudid FOOD SERVICE SUPERVISOR) 1 MG/HR CONTINUOUS RATE 1... Q4PCA IV Last administered on 06/24/16 10:45; Admin Dose 6 MG; Start 06/12/16 at 21:05 Methadone HCl (Methadone Liq (Ped)) 2 mg Q6 PO Last administered on 06/24/16 11:37; Admin Dose 2 MG; Start 06/13/16 at 14:00 Nitroglycerin (Nitroglycerin (Sl Tab) 0.4 Mg) 1 tab Q5M PRN SL ANGINA Last administered on 06/23/16 09:57; Admin Dose 1 TAB; Start 06/15/16 at 22:47 Methylprednisolone Sodium Succinate (Solu-Medrol) 40 mg Q12 IV Last administered on 06/24/16 09:03; Admin Dose 40 MG; Start 06/16/16 at 21:00 Apixaban (Eliquis) 10 mg BID PO Last administered on 06/24/16 09:03; Admin Dose 10 MG; Start 06/19/16 at 12:00; Stop 06/25/16 at 23:00 Apixaban (Eliquis) 5 mg BID PO ; Start 06/26/16 at 09:00 Diltiazem HCl (Cardizem Cd) 120 mg DAILY PO Last administered on 06/24/16 09: 03; Admin Dose 120 MG; Start 06/21/16 at 09:00 Metoprolol Tartrate (Lopressor) 25 mg BID PO Last administered on 06/24/16 09: 04; Admin Dose 25 MG; Start 06/20/16 at 21:00 Prochlorperazine (Compazine) 5 mg Q4H PRN PO NAUSEA AND/OR VOMITING Last administered on 06/21/16 09:17; Admin Dose 5 MG; Start 06/20/16 at 14:00 Fluticasone Propionate (Flonase 0.05% Nasal) 1 spray BID NASAL Last administered on 06/24/16 09:05; Admin Dose 1 SPRAY; Start 06/21/16 at 12:00 Furosemide (Lasix) 20 mg DAILY PO Last administered on 06/24/16 09:03; Admin Dose 20 MG; Start 06/22/16 at 09:00 CARMEN BHATTI Jun 24, 2016 14:30
--- NOTE | 2016-06-24 21:50 | RADRPT ---
Vent Rate: 90 bpm RR Interval: 0 msec OR Interval: 160 msec QRS Duration: 94 msec QT Interval: 330 msec QTC Interval: 403 msec P-R-T Boyers: 56 - 54 - 49 degrees Normal sinus rhythm Normal ECG Electronically Signed By: José Baez [id number]
[2016-06-25] VITALS (13 sets, daily range): BP systolic 107–122; BP diastolic 66–84; PULSE 73–160; RESP 16–21
[2016-06-25] MEDS: LEVALBUTEROL (NEB) 0.63 MG/3 ML AMP HHN SCH ×3 (00:15→15:18)
[2016-06-25] MEDS: METHADONE (1 MG/1 ML PO SYG) PO SCH ×5 (02:28→23:47)
[2016-06-25] MEDS: D5W-0.45 NACL + KCL 20 MEQ 1,000 ML IV SCH ×3 (02:29→20:42)
[2016-06-25] MEDS: HYDROmorphONE 0.2 MG/ML PCA IV SCH ×4 (04:48→21:23)
[2016-06-25] MEDS ORDERED: APIX5TAB PO (09:27)
[2016-06-25] MEDS ORDERED: FER325 PO (09:27)
[2016-06-25] MEDS ORDERED: POLY17PO6 PO (09:28)
[2016-06-25] MEDS ORDERED: FLUT16SP17 NASAL (09:28)
[2016-06-25] MEDS ORDERED: PROC5TAB PO (09:28)
[2016-06-25] MEDS ORDERED: LAS20 PO (09:28)
[2016-06-25] MEDS ORDERED: METO-429 PO (09:28)
[2016-06-25] MEDS ORDERED: PANT40TA3 PO (09:28)
[2016-06-25] MEDS ORDERED: NIT4 SL (09:28)
--- NOTE | 2016-06-25 09:38 | PDOCDIS ---
Discharge Instructions DIAGNOSIS Discharge Diagnosis: 1. pulmonary embolism 2. abdominal pain with ascites likely malignant origi CONDITION Patient Condition: Guarded HOME CARE INSTRUCTIONS: Special Diet: Regular diet OTHER ORDERS: Other Orders: 1. Further management and care per home hospice company CARMEN BHATTI Jun 25, 2016 09:38
[2016-06-25] MEDS: FLUTICASONE 0.05% 16 GM NAS SPRAY NASAL SCH ×2 (09:53→20:44)
[2016-06-25] MEDS: METHYLPREDNISOLONE 40 MG INJ IV SCH ×2 (09:54→20:44)
[2016-06-25] MEDS: FAMOTIDINE 20 MG INJ IV SCH ×2 (09:54→20:44)
[2016-06-25] MEDS: APIXABAN 5 MG TABLET PO SCH ×2 (09:54→20:45)
[2016-06-25] MEDS: METOPROLOL 50 MG TAB PO SCH ×2 (09:55→20:45)
[2016-06-25] MEDS: FUROSEMIDE 20 MG TAB PO SCH (09:56)
[2016-06-25] MEDS: FERROUS SULFATE (EC) 325 MG TAB PO SCH ×2 (09:56→20:44)
[2016-06-25] MEDS: DILTIAZEM (CD) 120 MG CAP PO SCH (09:56)
[2016-06-25] MEDS: NITROGLYCERIN (SL) 0.4 MG TAB SL PRN (10:01)
--- NOTE | 2016-06-25 13:45 | PN ---
Date/Time of Note Date/Time of Note DATE: 06/25/16 TIME: 13:41 Assessment/Plan VTE Prophylaxis VTE Prophylaxis Intervention: other (eliquis) Lines/Catheters IV Catheter Type (from Nrs): Peripheral IV Urinary Cath still in place: Yes Reason Cath still needed: other (indicate) (monitor I&O) Assessment/Plan Chief Complaint/Hosp Course Assessment and plan 1. Pulmonary embolism. Continue on anticoagulation. Continue on O2. 2. Left distal superficial femoral vein DVT. Continue anticoagulation. Vascular surgeon is following. No recommendation for IVC filter given patient's advanced malignancy and hypercoagulability secondary to underlying malignancy 3. Abdominal pain with ascites likely malignant in origin. Patient did receive paracentesis. We'll provide as needed 4. History of stomach cancer with malignant ascites. Palliative care physician following. Oncologist following. No plan for further chemotherapy given patient' s health condition. Follow-up with oncologist recommendations. 5. Iron deficiency anemia. Continue iron supplement 6. Bilateral pleural effusions. Continue on diuretic 7. Acute respiratory failure. Continue insulin bronchodilators. Continue pulmonology recommendations 8. GERD prophylaxis: H2 surinder 9. Chest pain. Troponin checked today was negative. Continue with cardiology recommendations. Nitrostat when necessary Disposition and plan: off hi-derik o2 and tolerating well. Still with some reported general pain. cont on dilaudid eyelet maker. Hospice aware. Plan for hospice set up at patient's home. Will d/c once equipment and services set up for home Discussed plan of care with Dr. Munoz Problems: Subjective 24 Hr Interval Summary Free Text/Dictation has reported worse chest pain today Exam/Review of Systems Vital Signs Vitals Vital Signs Date Time Temp Pulse Resp B/P Pulse Ox O2 Delivery O2 Flow Rate FiO2 06/25/16 11:36 97.9 88 21 115/78 100 06/25/16 08:16 Nasal Cannula 5.0 40 Intake and Output 06/24/16 06/24/16 06/25/16 14:59 22:59 06:59 Intake Total 100 ml 760 ml Output Total 350 ml 450 ml Balance -250 ml 310 ml Exam General: No acute signs or symptoms of distress Eyes: pupils equal round, Anicteric sclera Neck: Supple nontender, no JVD Cardiac: S1, S2 auscultated, regular rhythm and rate Pulmonary: Diminished bilaterally GI: Protuberant Extremities: Edema bilateral lower extremities Skin: Clean dry and intact Neurologic: Alert to person place and time and situation Results Result Diagram: 06/22/16 0615 Medications Medications Current Medications Ondansetron HCl (Zofran Inj) 4 mg Q6H PRN IV NAUSEA AND/OR VOMITING Last administered on 06/24/16 11:37; Admin Dose 4 MG; Start 06/10/16 at 07:30 Acetaminophen (Tylenol Tab) 650 mg Q6H PRN PO PAIN LEVEL 1-3 OR FEVER Last administered on 06/16/16 22:50; Admin Dose 650 MG; Start 06/10/16 at 07:30 Famotidine (Pepcid Iv) 20 mg Q12 IV Last administered on 06/25/16 09:54; Admin Dose 20 MG; Start 06/10/16 at 09:00 Docusate Sodium (Colace) 100 mg Q12H PRN PO CONSTIPATION Last administered on 18:27; Admin Dose 100 MG; Start 06/10/16 at 07:30 Polyethylene Glycol (Miralax) 8.5 gm DAILY PRN PO CONSTIPATION Last administered on 06/23/16 06:05; Admin Dose 8.5 GM; Start 06/10/16 at 07:30 Ferrous Sulfate 325 mg 325 mg BID PO Last administered on 06/25/16 09:56; Admin Dose 325 MG; Start 06/10/16 at 21:00 Potassium Chloride/Dextrose/ Sod Cl (D5-1/2ns + KCl 20 Meq) 1,000 ml @ 60 mls/ hr [id number] IV Last administered on 06/25/16 02:29; Admin Dose 60 MLS/HR; Start 06/11/16 at 16:00 Hydromorphone HCl (Dilaudid SUPERVISOR GATE SERVICES) 1 MG/HR CONTINUOUS RATE 1... Q4PCA IV Last administered on 06/25/16 10:44; Admin Dose 6 MG; Start 06/12/16 at 21:05 Methadone HCl (Methadone Liq (Ped)) 2 mg Q6 PO Last administered on 06/25/16 12:56; Admin Dose 2 MG; Start 06/13/16 at 14:00 Nitroglycerin (Nitroglycerin (Sl Tab) 0.4 Mg) 1 tab Q5M PRN SL ANGINA Last administered on 06/25/16 10:01; Admin Dose 1 TAB; Start 06/15/16 at 22:47 Methylprednisolone Sodium Succinate (Solu-Medrol) 40 mg Q12 IV Last administered on 06/25/16 09:54; Admin Dose 40 MG; Start 06/16/16 at 21:00 Apixaban (Eliquis) 10 mg BID PO Last administered on 06/25/16 09:54; Admin Dose 10 MG; Start 06/19/16 at 12:00; Stop 06/25/16 at 23:00 Apixaban (Eliquis) 5 mg BID PO ; Start 06/26/16 at 09:00 Diltiazem HCl (Cardizem Cd) 120 mg DAILY PO Last administered on 06/25/16 09: 56; Admin Dose 120 MG; Start 06/21/16 at 09:00 Metoprolol Tartrate (Lopressor) 25 mg BID PO Last administered on 06/25/16 09: 55; Admin Dose 25 MG; Start 06/20/16 at 21:00 Prochlorperazine (Compazine) 5 mg Q4H PRN PO NAUSEA AND/OR VOMITING Last administered on 06/21/16 09:17; Admin Dose 5 MG; Start 06/20/16 at 14:00 Fluticasone Propionate (Flonase 0.05% Nasal) 1 spray BID NASAL Last administered on 06/25/16 09:53; Admin Dose 1 SPRAY; Start 06/21/16 at 12:00 Furosemide (Lasix) 20 mg DAILY PO Last administered on 06/25/16 09:56; Admin Dose 20 MG; Start 06/22/16 at 09:00 CARMEN BHATTI Jun 25, 2016 13:45
--- NOTE | 2016-06-25 16:03 | CONS ---
Date/Time of Note Date/Time of Note DATE: 06/25/16 TIME: 16:02 Assessment/Plan Assessment/Plan Additional Assessment/Plan Tachycardia Pulmonary emboli Stomach cancer with metastases DVT Preserved ejection fraction Pleural effusion and abdominal ascites -Continue AV olinda blocking agents as blood pressure permits, maintenance diuretics as blood pressure and renal function permits. Consultation Date/Type/Reason Admit Date/Time Jun 10, 2016 at 01:43 Type of Consultation: cv Referring Provider: NAYELY LINTON HIGH LIFT MULE OPERATOR 24 HR Interval Summary Free Text/Dictation Shortness of breath is slightly better. Denies palpitations Exam/Review of Systems Vital Signs Vitals Vital Signs Date Time Temp Pulse Resp B/P Pulse Ox O2 Delivery O2 Flow Rate FiO2 06/25/16 15:20 97.5 93 16 114/84 99 06/25/16 15:19 Nasal Cannula 6.0 40 Intake and Output 06/24/16 06/24/16 06/25/16 15:00 23:00 07:00 Intake Total 100 ml 760 ml Output Total 350 ml 450 ml Balance -250 ml 310 ml Exam Fatigue, no apparent distress Constitutional: alert, obese, oriented Head: normocephalic Neck: supple Respiratory: other (Coarse breath sounds bilaterally, no wheezing) Cardiovascular: other (S1-S2 heard), regular rate and rhythm Gastrointestinal: bowel sounds, non-tender, other (No guarding), soft Extremities: edema (Trace) Results Result Diagram: 06/22/16 0615 Medications Medications Current Medications Ondansetron HCl (Zofran Inj) 4 mg Q6H PRN IV NAUSEA AND/OR VOMITING Last administered on 06/24/16 11:37; Admin Dose 4 MG; Start 06/10/16 at 07:30 Acetaminophen (Tylenol Tab) 650 mg Q6H PRN PO PAIN LEVEL 1-3 OR FEVER Last administered on 06/16/16 22:50; Admin Dose 650 MG; Start 06/10/16 at 07:30 Famotidine (Pepcid Iv) 20 mg Q12 IV Last administered on 06/25/16 09:54; Admin Dose 20 MG; Start 06/10/16 at 09:00 Docusate Sodium (Colace) 100 mg Q12H PRN PO CONSTIPATION Last administered on 18:27; Admin Dose 100 MG; Start 06/10/16 at 07:30 Polyethylene Glycol (Miralax) 8.5 gm DAILY PRN PO CONSTIPATION Last administered on 06/23/16 06:05; Admin Dose 8.5 GM; Start 06/10/16 at 07:30 Ferrous Sulfate 325 mg 325 mg BID PO Last administered on 06/25/16 09:56; Admin Dose 325 MG; Start 06/10/16 at 21:00 Potassium Chloride/Dextrose/ Sod Cl (D5-1/2ns + KCl 20 Meq) 1,000 ml @ 60 mls/ hr [id number] IV Last administered on 06/25/16 02:29; Admin Dose 60 MLS/HR; Start 06/11/16 at 16:00 Hydromorphone HCl (Dilaudid BRIM POUNCER) 1 MG/HR CONTINUOUS RATE 1... Q4PCA IV Last administered on 06/25/16 15:04; Admin Dose 6 MG; Start 06/12/16 at 21:05 Methadone HCl (Methadone Liq (Ped)) 2 mg Q6 PO Last administered on 06/25/16 12:56; Admin Dose 2 MG; Start 06/13/16 at 14:00 Nitroglycerin (Nitroglycerin (Sl Tab) 0.4 Mg) 1 tab Q5M PRN SL ANGINA Last administered on 06/25/16 10:01; Admin Dose 1 TAB; Start 06/15/16 at 22:47 Methylprednisolone Sodium Succinate (Solu-Medrol) 40 mg Q12 IV Last administered on 06/25/16 09:54; Admin Dose 40 MG; Start 06/16/16 at 21:00 Apixaban (Eliquis) 10 mg BID PO Last administered on 06/25/16 09:54; Admin Dose 10 MG; Start 06/19/16 at 12:00; Stop 06/25/16 at 23:00 Apixaban (Eliquis) 5 mg BID PO ; Start 06/26/16 at 09:00 Diltiazem HCl (Cardizem Cd) 120 mg DAILY PO Last administered on 06/25/16 09: 56; Admin Dose 120 MG; Start 06/21/16 at 09:00 Metoprolol Tartrate (Lopressor) 25 mg BID PO Last administered on 06/25/16 09: 55; Admin Dose 25 MG; Start 06/20/16 at 21:00 Prochlorperazine (Compazine) 5 mg Q4H PRN PO NAUSEA AND/OR VOMITING Last administered on 06/21/16 09:17; Admin Dose 5 MG; Start 06/20/16 at 14:00 Fluticasone Propionate (Flonase 0.05% Nasal) 1 spray BID NASAL Last administered on 06/25/16 09:53; Admin Dose 1 SPRAY; Start 06/21/16 at 12:00 Furosemide (Lasix) 20 mg DAILY PO Last administered on 06/25/16 09:56; Admin Dose 20 MG; Start 06/22/16 at 09:00 José Baez DO Jun 25, 2016 16:03
[2016-06-25] MEDS: ONDANSETRON 4 MG INJ IV PRN ×2 (17:05→21:28)
[2016-06-26] VITALS (12 sets, daily range): BP systolic 108–115; BP diastolic 65–80; PULSE 95–158; RESP 16–18
[2016-06-26] MEDS: HYDROmorphONE 0.2 MG/ML PCA IV SCH ×5 (01:41→20:52)
[2016-06-26] MEDS: METHADONE (1 MG/1 ML PO SYG) PO SCH ×4 (06:02→23:54)
[2016-06-26] MEDS: ONDANSETRON 4 MG INJ IV PRN ×3 (06:12→20:53)
[2016-06-26] MEDS: LEVALBUTEROL (NEB) 0.63 MG/3 ML AMP HHN SCH ×4 (08:32→23:49)
[2016-06-26] MEDS: FLUTICASONE 0.05% 16 GM NAS SPRAY NASAL SCH ×2 (09:00→20:42)
[2016-06-26] MEDS: DILTIAZEM (CD) 120 MG CAP PO SCH ×2 (09:00→10:50)
[2016-06-26] MEDS: APIXABAN 5 MG TABLET PO SCH ×3 (09:00→20:41)
[2016-06-26] MEDS: METOPROLOL 50 MG TAB PO SCH ×3 (09:00→20:41)
[2016-06-26] MEDS: FERROUS SULFATE (EC) 325 MG TAB PO SCH ×2 (09:00→20:40)
[2016-06-26] MEDS: FUROSEMIDE 20 MG TAB PO SCH ×2 (09:00→10:52)
[2016-06-26] MEDS: METHYLPREDNISOLONE 40 MG INJ IV SCH ×2 (10:12→20:40)
[2016-06-26] MEDS: FAMOTIDINE 20 MG INJ IV SCH ×2 (10:12→20:40)
--- NOTE | 2016-06-26 10:46 | PN ---
Date/Time of Note Date/Time of Note DATE: 06/26/16 TIME: 10:43 Assessment/Plan VTE Prophylaxis VTE Prophylaxis Intervention: other (Eliquis ) Lines/Catheters IV Catheter Type (from Nrs): Peripheral IV Urinary Cath still in place: Yes Reason Cath still needed: terminal illness/intractable pain Assessment/Plan Assessment/Plan 1. Pulmonary embolism. Continue on anticoagulation. Continue on O2. 2. Left distal superficial femoral vein DVT. Continue anticoagulation. Vascular surgeon is following. No recommendation for IVC filter given patient's advanced malignancy and hypercoagulability secondary to underlying malignancy 3. Abdominal pain with ascites likely malignant in origin. Patient did receive paracentesis. We'll provide as needed 4. History of stomach cancer with malignant ascites. Palliative care physician following. Oncologist following. No plan for further chemotherapy given patient' s health condition. Follow-up with oncologist recommendations. 5. Iron deficiency anemia. Continue iron supplement 6. Bilateral pleural effusions. Continue on diuretic 7. Acute respiratory failure. Continue insulin bronchodilators. Continue pulmonology recommendations 8. GERD prophylaxis: H2 surinder Disposition and plan: off hi-derik o2 and tolerating well. Still with some reported general pain. cont on dilaudid toxicology supervisor. Hospice aware. Plan for hospice set up at patient's home. Will d/c once equipment and services set up for home Exam/Review of Systems Vital Signs Vitals Vital Signs Date Time Temp Pulse Resp B/P Pulse Ox O2 Delivery O2 Flow Rate FiO2 06/26/16 08:33 99 16 99 Nasal Cannula 6.0 40 06/26/16 08:26 97.7 108/74 Intake and Output 06/25/16 06/25/16 06/26/16 15:00 23:00 07:00 Intake Total 300 ml 644 ml Output Total 2700 ml 550 ml Balance -2400 ml 94 ml Results Result Diagram: 06/22/16 0615 Medications Medications Current Medications Ondansetron HCl (Zofran Inj) 4 mg Q6H PRN IV NAUSEA AND/OR VOMITING Last administered on 06/26/16 06:12; Admin Dose 4 MG; Start 06/10/16 at 07:30 Acetaminophen (Tylenol Tab) 650 mg Q6H PRN PO PAIN LEVEL 1-3 OR FEVER Last administered on 06/16/16 22:50; Admin Dose 650 MG; Start 06/10/16 at 07:30 Famotidine (Pepcid Iv) 20 mg Q12 IV Last administered on 06/26/16 10:12; Admin Dose 20 MG; Start 06/10/16 at 09:00 Docusate Sodium (Colace) 100 mg Q12H PRN PO CONSTIPATION Last administered on 18:27; Admin Dose 100 MG; Start 06/10/16 at 07:30 Polyethylene Glycol (Miralax) 8.5 gm DAILY PRN PO CONSTIPATION Last administered on 06/23/16 06:05; Admin Dose 8.5 GM; Start 06/10/16 at 07:30 Ferrous Sulfate 325 mg 325 mg BID PO Last administered on 06/25/16 20:44; Admin Dose 325 MG; Start 06/10/16 at 21:00 Potassium Chloride/Dextrose/ Sod Cl (D5-1/2ns + KCl 20 Meq) 1,000 ml @ 60 mls/ hr [id number] IV Last administered on 06/25/16 20:42; Admin Dose 60 MLS/HR; Start 06/11/16 at 16:00 Hydromorphone HCl (Dilaudid SUPERVISOR ROLLER SHOP) 1 MG/HR CONTINUOUS RATE 1... Q4PCA IV Last administered on 06/26/16 06:54; Admin Dose 0.2 MG; Start 06/12/16 at 21:05 Methadone HCl (Methadone Liq (Ped)) 2 mg Q6 PO Last administered on 06/26/16 06:02; Admin Dose 2 MG; Start 06/13/16 at 14:00 Nitroglycerin (Nitroglycerin (Sl Tab) 0.4 Mg) 1 tab Q5M PRN SL ANGINA Last administered on 06/25/16 10:01; Admin Dose 1 TAB; Start 06/15/16 at 22:47 Methylprednisolone Sodium Succinate (Solu-Medrol) 40 mg Q12 IV Last administered on 06/26/16 10:12; Admin Dose 40 MG; Start 06/16/16 at 21:00 Apixaban (Eliquis) 5 mg BID PO ; Start 06/26/16 at 09:00 Diltiazem HCl (Cardizem Cd) 120 mg DAILY PO Last administered on 06/25/16 09: 56; Admin Dose 120 MG; Start 06/21/16 at 09:00 Metoprolol Tartrate (Lopressor) 25 mg BID PO Last administered on 06/25/16 20: 45; Admin Dose 25 MG; Start 06/20/16 at 21:00 Prochlorperazine (Compazine) 5 mg Q4H PRN PO NAUSEA AND/OR VOMITING Last administered on 06/21/16 09:17; Admin Dose 5 MG; Start 06/20/16 at 14:00 Fluticasone Propionate (Flonase 0.05% Nasal) 1 spray BID NASAL Last administered on 06/25/16 20:44; Admin Dose 1 SPRAY; Start 06/21/16 at 12:00 Furosemide (Lasix) 20 mg DAILY PO Last administered on 06/25/16 09:56; Admin Dose 20 MG; Start 06/22/16 at 09:00 GOSIA BOTELLO MD Jun 26, 2016 10:46
[2016-06-26] MEDS: D5W-0.45 NACL + KCL 20 MEQ 1,000 ML IV SCH (15:12)
[2016-06-26] MEDS: PROCHLORPERAZINE 5 MG TAB PO PRN ×2 (20:52→21:57)
[2016-06-27] MEDS: D5W-0.45 NACL + KCL 20 MEQ 1,000 ML IV SCH ×2 (01:02→10:42)
[2016-06-27] MEDS: HYDROmorphONE 0.2 MG/ML PCA IV SCH ×3 (02:23→13:05)
[2016-06-27 04:17] VITALS: BP 113/76; RESP 19
[2016-06-27] MEDS: METHADONE (1 MG/1 ML PO SYG) PO SCH ×3 (05:48→17:37)
[2016-06-27 07:39] VITALS: BP 123/81; RESP 18
[2016-06-27] MEDS: METHYLPREDNISOLONE 40 MG INJ IV SCH (08:55)
[2016-06-27] MEDS: ONDANSETRON 4 MG INJ IV PRN ×2 (08:55→20:23)
[2016-06-27] MEDS: LEVALBUTEROL (NEB) 0.63 MG/3 ML AMP HHN SCH (08:55)
[2016-06-27] MEDS: FLUTICASONE 0.05% 16 GM NAS SPRAY NASAL SCH (08:58)
[2016-06-27] MEDS: FERROUS SULFATE (EC) 325 MG TAB PO SCH (09:00)
[2016-06-27] MEDS: DILTIAZEM (CD) 120 MG CAP PO SCH (09:00)
[2016-06-27] MEDS: METOPROLOL 50 MG TAB PO SCH (09:00)
[2016-06-27] MEDS: FUROSEMIDE 20 MG TAB PO SCH (09:00)
[2016-06-27] MEDS: APIXABAN 5 MG TABLET PO SCH (09:00)
[2016-06-27] MEDS: FAMOTIDINE 20 MG INJ IV SCH (09:51)
--- NOTE | 2016-06-27 10:35 | PN ---
Date/Time of Note Date/Time of Note DATE: 06/27/16 TIME: 10:33 Assessment/Plan VTE Prophylaxis VTE Prophylaxis Intervention: SCD's Lines/Catheters IV Catheter Type (from Nrs): Peripheral IV Urinary Cath still in place: Yes Reason Cath still needed: other (indicate) (going on hospice care ) Assessment/Plan Assessment/Plan 1. Pulmonary embolism. Continue on anticoagulation. Continue on O2. 2. Left distal superficial femoral vein DVT. Continue anticoagulation. Vascular surgeon is following. No recommendation for IVC filter given patient's advanced malignancy and hypercoagulability secondary to underlying malignancy 3. Abdominal pain with ascites likely malignant in origin. Patient did receive paracentesis. We'll provide as needed 4. History of stomach cancer with malignant ascites. Palliative care physician following. Oncologist following. No plan for further chemotherapy given patient' s health condition. Follow-up with oncologist recommendations. 5. Iron deficiency anemia. Continue iron supplement 6. Bilateral pleural effusions. Continue on diuretic 7. Acute respiratory failure. Continue insulin bronchodilators. Continue pulmonology recommendations 8. GERD prophylaxis: H2 surinder DNR code status Disposition and plan: off hi-derik o2 and tolerating well. Still with some reported general pain. cont on dilaudid manager of sustainability. Hospice aware. pt famiily changed plan, they want SNF hospice, will wait until SNF with hospice care has been set up Subjective 24 Hr Interval Summary Free Text/Dictation no events, downgraded to med/surge floor, Awaiting transfer to SNF with hospice care Exam/Review of Systems Vital Signs Vitals Vital Signs Date Time Temp Pulse Resp B/P Pulse Ox O2 Delivery O2 Flow Rate FiO2 06/27/16 07:39 97.8 109 18 123/81 100 06/27/16 04:53 6.0 06/26/16 23:49 Nasal Cannula 06/26/16 08:33 40 Intake and Output 06/26/16 06/26/16 06/27/16 14:59 22:59 06:59 Intake Total 300 ml 531 ml 860 ml Output Total 2400 ml 1000 ml Balance 300 ml -1869 ml -140 ml Exam Fatigue, no apparent distress Constitutional: alert, obese, oriented Head: normocephalic Neck: supple Respiratory: other (Coarse breath sounds bilaterally, no wheezing) Cardiovascular: other (S1-S2 heard), regular rate and rhythm Gastrointestinal: bowel sounds, non-tender, other (No guarding), soft Extremities: edema (Trace) Medications Medications Current Medications Ondansetron HCl (Zofran Inj) 4 mg Q6H PRN IV NAUSEA AND/OR VOMITING Last administered on 06/27/16 08:55; Admin Dose 4 MG; Start 06/10/16 at 07:30 Acetaminophen (Tylenol Tab) 650 mg Q6H PRN PO PAIN LEVEL 1-3 OR FEVER Last administered on 06/16/16 22:50; Admin Dose 650 MG; Start 06/10/16 at 07:30 Famotidine (Pepcid Iv) 20 mg Q12 IV Last administered on 06/27/16 09:51; Admin Dose 20 MG; Start 06/10/16 at 09:00 Docusate Sodium (Colace) 100 mg Q12H PRN PO CONSTIPATION Last administered on 18:27; Admin Dose 100 MG; Start 06/10/16 at 07:30 Polyethylene Glycol (Miralax) 8.5 gm DAILY PRN PO CONSTIPATION Last administered on 06/23/16 06:05; Admin Dose 8.5 GM; Start 06/10/16 at 07:30 Ferrous Sulfate 325 mg 325 mg BID PO Last administered on 06/26/16 20:40; Admin Dose 325 MG; Start 06/10/16 at 21:00 Potassium Chloride/Dextrose/ Sod Cl (D5-1/2ns + KCl 20 Meq) 1,000 ml @ 50 mls/ hr Q20H IV Last administered on 06/26/16 15:12; Admin Dose 50 MLS/HR; Start at 16:00 Hydromorphone HCl (Dilaudid CLINICAL INFORMATICS EDUCATOR) 1 MG/HR CONTINUOUS RATE 1... Q4PCA IV Last administered on 06/27/16 08:48; Admin Dose 6 MG; Start 06/12/16 at 21:05 Methadone HCl (Methadone Liq (Ped)) 2 mg Q6 PO Last administered on 06/26/16 23:54; Admin Dose 2 MG; Start 06/13/16 at 14:00 Nitroglycerin (Nitroglycerin (Sl Tab) 0.4 Mg) 1 tab Q5M PRN SL ANGINA Last administered on 06/25/16 10:01; Admin Dose 1 TAB; Start 06/15/16 at 22:47 Methylprednisolone Sodium Succinate (Solu-Medrol) 40 mg Q12 IV Last administered on 06/27/16 08:55; Admin Dose 40 MG; Start 06/16/16 at 21:00 Apixaban (Eliquis) 5 mg BID PO Last administered on 06/26/16 20:41; Admin Dose 5 MG; Start 06/26/16 at 09:00 Diltiazem HCl (Cardizem Cd) 120 mg DAILY PO Last administered on 06/26/16 10: 50; Admin Dose 120 MG; Start 06/21/16 at 09:00 Metoprolol Tartrate (Lopressor) 25 mg BID PO Last administered on 06/26/16 20: 41; Admin Dose 25 MG; Start 06/20/16 at 21:00 Prochlorperazine (Compazine) 5 mg Q4H PRN PO NAUSEA AND/OR VOMITING Last administered on 06/26/16 21:57; Admin Dose 5 MG; Start 06/20/16 at 14:00 Fluticasone Propionate (Flonase 0.05% Nasal) 1 spray BID NASAL Last administered on 06/27/16 08:58; Admin Dose 1 SPRAY; Start 06/21/16 at 12:00 Furosemide (Lasix) 20 mg DAILY PO Last administered on 06/26/16 10:52; Admin Dose 20 MG; Start 06/22/16 at 09:00 GOSIA BOTELLO MD Jun 27, 2016 10:35
[2016-06-27 12:48] VITALS: BP 116/85; RESP 18
--- NOTE | 2016-06-27 13:21 | PN ---
Date/Time of Note Date/Time of Note DATE: 06/27/16 TIME: 13:20 Assessment/Plan VTE Prophylaxis VTE Prophylaxis Intervention: SCD's Lines/Catheters IV Catheter Type (from Nrsg): Peripheral IV Urinary Cath still in place: Yes Subjective 24 Hr Interval Summary Free Text/Dictation the patient with no cahnge Exam/Review of Systems Vital Signs Vitals Vital Signs Date Time Temp Pulse Resp B/P Pulse Ox O2 Delivery O2 Flow Rate FiO2 06/27/16 13:00 18 06/27/16 12:48 98.3 110 116/85 100 06/27/16 12:18 6.0 06/27/16 11:53 Nasal Cannula 06/26/16 08:33 40 Intake and Output 06/26/16 06/26/16 06/27/16 15:00 23:00 07:00 Intake Total 300 ml 531 ml 860 ml Output Total 2400 ml 1000 ml Balance 300 ml -1869 ml -140 ml Medications Medications Current Medications Ondansetron HCl (Zofran Inj) 4 mg Q6H PRN IV NAUSEA AND/OR VOMITING Last administered on 06/27/16 08:55; Admin Dose 4 MG; Start 06/10/16 at 07:30 Acetaminophen (Tylenol Tab) 650 mg Q6H PRN PO PAIN LEVEL 1-3 OR FEVER Last administered on 06/16/16 22:50; Admin Dose 650 MG; Start 06/10/16 at 07:30 Famotidine (Pepcid Iv) 20 mg Q12 IV Last administered on 06/27/16 09:51; Admin Dose 20 MG; Start 06/10/16 at 09:00 Docusate Sodium (Colace) 100 mg Q12H PRN PO CONSTIPATION Last administered on 18:27; Admin Dose 100 MG; Start 06/10/16 at 07:30 Polyethylene Glycol (Miralax) 8.5 gm DAILY PRN PO CONSTIPATION Last administered on 06/23/16 06:05; Admin Dose 8.5 GM; Start 06/10/16 at 07:30 Ferrous Sulfate 325 mg 325 mg BID PO Last administered on 06/26/16 20:40; Admin Dose 325 MG; Start 06/10/16 at 21:00 Potassium Chloride/Dextrose/ Sod Cl (D5-1/2ns + KCl 20 Meq) 1,000 ml @ 50 mls/ hr Q20H IV Last administered on 06/27/16 10:42; Admin Dose 50 MLS/HR; Start at 16:00 Hydromorphone HCl (Dilaudid SQL DATABASE DEVELOPER) 1 MG/HR CONTINUOUS RATE 1... Q4PCA IV Last administered on 06/27/16 13:05; Admin Dose 6 MG; Start 06/12/16 at 21:05 Methadone HCl (Methadone Liq (Ped)) 2 mg Q6 PO Last administered on 06/26/16 23:54; Admin Dose 2 MG; Start 06/13/16 at 14:00 Nitroglycerin (Nitroglycerin (Sl Tab) 0.4 Mg) 1 tab Q5M PRN SL ANGINA Last administered on 06/25/16 10:01; Admin Dose 1 TAB; Start 06/15/16 at 22:47 Apixaban (Eliquis) 5 mg BID PO Last administered on 06/26/16 20:41; Admin Dose 5 MG; Start 06/26/16 at 09:00 Diltiazem HCl (Cardizem Cd) 120 mg DAILY PO Last administered on 06/26/16 10: 50; Admin Dose 120 MG; Start 06/21/16 at 09:00 Metoprolol Tartrate (Lopressor) 25 mg BID PO Last administered on 06/26/16 20: 41; Admin Dose 25 MG; Start 06/20/16 at 21:00 Prochlorperazine (Compazine) 5 mg Q4H PRN PO NAUSEA AND/OR VOMITING Last administered on 06/26/16 21:57; Admin Dose 5 MG; Start 06/20/16 at 14:00 Fluticasone Propionate (Flonase 0.05% Nasal) 1 spray BID NASAL Last administered on 06/27/16 08:58; Admin Dose 1 SPRAY; Start 06/21/16 at 12:00 Furosemide (Lasix) 20 mg DAILY PO Last administered on 06/26/16 10:52; Admin Dose 20 MG; Start 06/22/16 at 09:00 Methylprednisolone Sodium Succinate (Solu-Medrol) 20 mg DAILY IV ; Start at 09:00 ERIBERTO DOMINGUEZ MD Jun 27, 2016 13:21
[2016-06-27] MEDS ORDERED: ACETAMINOPHEN 650 MG SUPP PR PRN ×2 (15:00→16:30)
[2016-06-27 15:05] VITALS: BP 111/76; PULSE 116; RESP 18
[2016-06-27 15:12] VITALS: BP 110/73; RESP 18
[2016-06-27] MEDS ORDERED: ATROPINE 1% 5 ML OPH SL PRN ×2 (15:30→16:30)
[2016-06-27] MEDS ORDERED: HYDROmorphONE 50 MG in DEXTROSE 5% 50 ML IV SCH (16:30)
[2016-06-27] MEDS ORDERED: LORAZEPAM 2 MG INJ IV PRN (16:30)
[2016-06-27] MEDS ORDERED: BISACODYL 10 MG SUPP PR PRN (16:30)
[2016-06-27] MEDS ORDERED: ONDANSETRON 4 MG INJ IV PRN (16:30)
[2016-06-27] MEDS ORDERED: ARTIFICIAL TEARS 15 ML OPH BOTH EYES PRN (17:30)
[2016-06-27] MEDS ORDERED: DIMETHICONE STICK TOP PRN (17:30)
[2016-06-27] MEDS ORDERED: HYDROmorphONE 0.2 MG/ML PCA IV SCH (17:30)
[2016-06-27] MEDS ORDERED: METHADONE (1 MG/ML 5 ML PO UD SYG) PO SCH (18:00)
--- NOTE | 2016-06-27 18:52 | HP ---
DATE OF ADMISSION: 06/10/2016 The patient is being admitted under [facility] hospice [facility] level of care. PRIMARY DIAGNOSIS: Metastatic gastric cancer, co-morbidity, and pulmonary embolism . CHIEF COMPLAINT/HISTORY OF PRESENT ILLNESS:: History was obtained from medical record and discussio n with nursing staff and family members. The patient is a 36-year-old female with gastric cancer, w hich was diagnosed initially in August 2015 with peritoneal metastases. The patient was initially tr eated at [facility] and has since then tried multiple lines of chemotherapy. Patient came to ER with abdominal pain, dyspnea, and back pain. Patient had a CT pulmonary angiogram done, which revealed pulmonary embolism, as well as moderate ascites and enlarged mediastinal lymph node and loculated pleural effusion. The patient was started on anticoagulation. The patient had advanc ed malignancy, and therefore no IV filter was recommended by vascular surgery. Patient's family dec ided to request hospice evaluation. Patient meanwhile was seen by Dr. Meyer from palliative care , and patient is being admitted under hospice care at [facility] level of care for uncontrolled pain. The patient did not have any vomiting today. No reported fever or chills. No reported acute skin rash. The patient did not have any bleeding from any site. The patient has generalized weakness and poo r p.o. intake. Review of systems was rather limited as the patient was lethargic. Back in April 2016, patient had thoracentesis for symptomatic pleural effusion, which was positive for metastatic adenoCA. ALLERGIES: NONE. PAST SURGICAL HISTORY: Status post Port-A-Cath. SOCIAL HISTORY: No smoking, no alcohol. PHYSICAL EXAMINATION: GENERAL: The patient is lethargic but arousable. VITAL SIGNS: Temperature 98.1, pulse 116, respirations 19, blood pressure 100/76, O2 saturation 99% on 4 liters nasal cannula. HEENT: No eye discharge or redness. Extraocular movements intact. Oropharynx clear. NECK: Supple. No mass, no thyromegaly. CHEST: Revealed diminished air entry at bases. No use of accessory muscles. CARDIOVASCULAR: S1, S2 normal. No murmur. ABDOMEN: Soft. Ascites present. EXTREMITIES: Edema present. NEUROLOGIC: The patient is lethargic but arousable, has generalized weakness. LABORATORY DATA: Sodium 135, potassium 4.1, BUN 17, creatinine 0.5. WBC 8.2, hemoglobin 9.8. IMPRESSION: 1. Metastatic gastric cancer. 2. Recent deep venous thrombosis of lower extremity, as well as pulmonary embolism. PLAN: Patient will be admitted under [facility] [place] level of care. The patient was Dilaudid DATABASE REPORT WRITER and was requi ring 9 mg of Dilaudid every 4 hours. Once her DATABASE REPORT WRITER is done, she will be started on Dilaudid 2.5 mg a n hour, which will be titrated up by 0.5 mg every hour to provide comfort. Will discontinue all oth er treatment except comfort care. The patient will be started on Ativan 0.5 mg q. 4 hours p.r.n. fo r anxiety. Patient is also on methadone 2 mg p.o. q.6h. Will continue as long as she is able to ta ke p.o. medication. We will also start on atropine drops for secretions and Zofran for vomiting. P wei of care discussed with patient's family as well as nursing staff at [facility] and [facility] Billie. Will continue to optimize comfort care. Dictated By: VIANCA TERRY/CAROL Conf#: [id number] DID#: [id number]
[2016-06-27] MEDS: HYDROmorphONE 50 MG in DEXTROSE 5% 45 ML IV SCH (19:47)
[2016-06-27 20:15] VITALS: BP 121/79; RESP 16
[2016-06-27] MEDS: LORAZEPAM 2 MG INJ IV PRN (20:32)
[2016-06-28] MEDS: METOCLOPRAMIDE 10 MG INJ IV PRN (00:12)
[2016-06-28] MEDS: METHADONE (1 MG/1 ML PO SYG) PO SCH ×4 (06:00→17:06)
[2016-06-28 07:45] VITALS: BP 117/72; RESP 18
[2016-06-28] MEDS: HYDROmorphONE 50 MG in DEXTROSE 5% 45 ML IV SCH ×4 (08:31→17:04)
[2016-06-28] MEDS ORDERED: METHYLPREDNISOLONE 40 MG INJ IV SCH (09:00)
--- NOTE | 2016-06-28 10:01 | CONS ---
Date/Time of Note Date/Time of Note DATE: 06/28/16 TIME: 10:00 Assessment/Plan Assessment/Plan Additional Assessment/Plan Tachycardia Pulmonary emboli Stomach cancer with metastases DVT Preserved ejection fraction Pleural effusion and abdominal ascites -Patient placed on inpatient hospice on Dilaudid drip. No further cardiac orders. Consultation Date/Type/Reason Admit Date/Time Jun 10, 2016 at 01:43 Type of Consultation: cv Referring Provider: NAYELY LINTON RUBBER TILE FLOOR LAYER 24 HR Interval Summary Free Text/Dictation Patient seen and examined, sleeping, on Dilaudid drip Exam/Review of Systems Vital Signs Vitals Vital Signs Date Time Temp Pulse Resp B/P Pulse Ox O2 Delivery O2 Flow Rate FiO2 06/28/16 07:45 97.8 100 18 117/72 96 06/28/16 01:53 5.0 06/27/16 19:45 Nasal Cannula 06/27/16 17:14 36 Intake and Output 06/27/16 06/27/16 06/28/16 15:00 23:00 07:00 Intake Total 250 ml 410 ml 200 ml Output Total 250 ml 50 ml 400 ml Balance 0 ml 360 ml -200 ml Exam Sleeping but arousable Head: normocephalic Respiratory: other (Coarse breath sounds bilaterally, no wheezing) Cardiovascular: other (S1-S2 heard), regular rate and rhythm (Tachycardic) Gastrointestinal: bowel sounds, non-tender, soft Extremities: other (Trace edema) Medications Medications Current Medications Acetaminophen (Tylenol Supp) 650 mg Q4H PRN NC FEVER; TEMP ABOVE 100 F; Start 06/27/16 at 15:00 Lorazepam (Ativan) 0.5 mg Q4H PRN IV ANXIETY Last administered on 06/27/16 20: 32; Admin Dose 0.5 MG; Start 06/27/16 at 15:00 Ondansetron HCl (Zofran Inj) 4 mg Q4H PRN IV NAUSEA AND/OR VOMITING Last administered on 06/27/16 20:23; Admin Dose 4 MG; Start 06/27/16 at 15:00 Methadone HCl (Methadone Liq (Ped)) 2 mg Q6 PO ; Start 06/27/16 at 18:00 Bisacodyl (Dulcolax Supp) 10 mg DAILY PRN NC CONSTIPATION; Start 06/27/16 at 15 :30 Atropine Sulfate 2 drop 2 drop Q2H PRN SL SECRETIONS; Start 06/27/16 at 15:30 Hydromorphone HCl/ Dextrose (Dilaudid/D5W) 50 ml @ 2.5 mls/hr TITRATE IV Last administered on 06/28/16 08:31; Admin Dose 4 MLS/HR; Start 06/27/16 at 17:08 Metoclopramide HCl (Reglan) 10 mg Q6H PRN IV NAUSEA Last administered on 00:12; Admin Dose 10 MG; Start 06/28/16 at 00:00 José Baez DO Jun 28, 2016 10:01
[2016-06-28] MEDS: ONDANSETRON 4 MG INJ IV PRN (10:26)
--- NOTE | 2016-06-28 13:04 | PN ---
DATE: 06/28/2016 PRIMARY HOSPICE DIAGNOSIS : Metastatic gastric cancer LEVEL OF CARE: GIP SUBJECTIVE: The patient today is more awake and responsive; however, patient continued to have increasing pain. Dilaudid dose has been just increased to 5 mg an hour. The patient does have shortness of breath at rest and hopefully with increase in Dilaudid dose, her shortness of breath will improve. The patient did not have any vomiting The patient was feeling thirsty and is drinking water. Denies any chest pain. The patient did not have any fever or chills. The patient does have hypoxemia, requiring supplemental oxygen up to 5 liters. PHYSICAL EXAMINATION: GENERAL: The patient to be currently awake and follows simple commands. VITAL SIGNS: Temperature 97.8, pulse 100, respirations 20, blood pressure 117/ 72, O2 saturation 95 % on 5 liters nasal cannula. HENT: Conjunctivae and lids normal. Oropharynx revealed dry oral mucosa. Nose and ears normal. NECK: Supple. No mass, no thyromegaly. CHEST: Revealed diminished air entry at bases. No use of accessory muscles. CARDIOVASCULAR: S1, S2 normal. No murmur. ABDOMEN: Soft with upper abdominal tenderness. EXTREMITIES: Trace edema. No clubbing, cyanosis. NEUROLOGIC: The patient is awake and follows simple commands. ASSESSMENT AND PLAN: 1. Metastatic gastric cancer. 2. Pulmonary embolism. PLAN: Continue Dilaudid at 5 mg an hour and will optimize comfort care. The patient did not want to have methadone. The patient's methadone is currently not available. We will continue to optimize comfort care with the Dilaudid drip. Will continue IV Ativan for anxiety. The patient did receive a dose last night and also the patient was nauseated this morning, which improved with IV Zofran, although despite that, she was complaining of nausea and therefore Reglan has been added. Dictated By: VIANCA TERRY/CAROL Conf#: [id number] DID#: [id number] MTDD
[2016-06-28 20:06] VITALS: BP 122/80; RESP 18
[2016-06-29] MEDS: HYDROmorphONE 50 MG in DEXTROSE 5% 45 ML IV SCH ×2 (04:55→17:06)
[2016-06-29] MEDS: METHADONE (1 MG/1 ML PO SYG) PO SCH ×4 (06:00→17:05)
[2016-06-29 07:35] VITALS: BP 125/62; RESP 20
[2016-06-29 20:50] VITALS: BP 111/67; RESP 20
[2016-06-29] MEDS: ONDANSETRON 4 MG INJ IV PRN (21:10)
[2016-06-30] MEDS: METHADONE (1 MG/1 ML PO SYG) PO SCH ×5 (02:27→23:19)
[2016-06-30] MEDS: ONDANSETRON 4 MG INJ IV PRN (02:31)
[2016-06-30] MEDS: HYDROmorphONE 50 MG in DEXTROSE 5% 45 ML IV SCH ×3 (06:32→23:18)
[2016-06-30 08:15] VITALS: BP 119/77; RESP 18
--- NOTE | 2016-06-30 08:22 | PN ---
DATE: 06/29/2016 PRIMARY DIAGNOSIS: Metastatic gastric cancer. SUBJECTIVE: Patient is lethargic today, but easily arousable to verbal and tactile stimuli, verball y responsive. The patient continues to have increased pain and therefore Dilaudid dose was increase d to 6 mg an hour. The patient does have intermittent labored breathing. No reported fevers or chi lls. No reported vomiting. The patient's p.o. intake has declined. PHYSICAL EXAMINATION: GENERAL: The patient is lethargic, but arousable. VITAL SIGNS: Afebrile. Vital signs stable. HEENT: Conjunctivae and lids are normal. Oropharynx revealed dry oral mucosa. Nose and ears are n ormal. NECK: Supple. No masses, no thyromegaly. CHEST: Diminished breath sounds at the bases. No use of accessory muscles. CARDIOVASCULAR: Regular rate and rhythm. S1, S2 normal. No murmur. ABDOMEN: Soft. Upper abdominal tenderness present. No guarding or rigidity. Bowel sounds plus. EXTREMITIES: No leg edema. No clubbing or cyanosis. NEUROLOGIC: The patient is lethargic, but arousable. Follows simple commands. ASSESSMENT AND PLAN: 1. Metastatic gastric cancer. 2. Deep vein thrombosis and pulmonary embolism. PLAN: Continue Dilaudid at 6 mg an hour. Continue atropine drops and scopolamine patch for secretio ns, DuoNeb for chest congestion and IV Ativan for anxiety. The patient remains terminally ill and re bryan appropriate for [facility] level of care. Plan of care discussed with the and nursing staff at [facility]. Dictated By: VIANCA TERRY/CAROL Conf#: [id number] DID#: [id number]
[2016-06-30] MEDS: METOCLOPRAMIDE 10 MG INJ IV PRN (10:08)
[2016-06-30] MEDS: LORAZEPAM 2 MG INJ IV PRN ×2 (14:08→21:42)
--- NOTE | 2016-06-30 17:46 | PN ---
DATE: 06/30/2016 PRIMARY HOSPITAL DIAGNOSIS: Metastatic gastric cancer. LEVEL OF CARE: GIP SUBJECTIVE: The patient since yesterday has continued to decline and was have increasing abdominal pain and her Dilaudid dose will be increased to 4.5 mg an hour. The patient did have significant na usea and also receiving multiple doses of Zofran. The patient did not have any chest pain and does have intermittent difficulty in breathing. No reported bleeding from any site. No reported leg ceci n. The patient remained awake and responsive. PHYSICAL EXAMINATION GENERAL: The patient is conscious, awake, alert. VITAL SIGNS: Stable, afebrile. HEENT: No eye discharge or redness. Extraocular movements intact. Oropharynx clear. NECK: Supple. No mass, lymph node or thyromegaly. CHEST: Revealed diminished air entry at bases. No use of accessory muscles. CARDIOVASCULAR: Regular rate and rhythm. S1, S2 normal. No murmur, gallop, or rub. ABDOMEN: Soft, nondistended. Upper abdominal tenderness present. No guarding or rigidity. Bowel sounds present. EXTREMITIES: No leg edema. NEUROLOGIC: The patient is awake, alert, fairly oriented with no gross focal deficits, although the patient does have generalized weakness. IMPRESSION AND PLAN: 1. Metastatic gastric cancer. 2. Pulmonary embolism. PLAN: The patient's Dilaudid dose as mentioned will be increased to 4.5 mg an hour and will be titr ated further as needed. I met with the patient's and updated him regarding plan of care and the poor prognosis. Plan of care discussed with nursing staff at [facility], as well as it nurseJanet. Will continue to optimize comfort care. Dictated By: VIANCA TERRY/CAROL Conf#: [id number] DID#: [id number]
[2016-06-30 21:15] VITALS: BP 125/58; RESP 20
[2016-07-01] MEDS: METHADONE (1 MG/1 ML PO SYG) PO SCH ×5 (02:27→23:39)
[2016-07-01 08:54] VITALS: BP 116/80; RESP 18
[2016-07-01] MEDS: HYDROmorphONE 50 MG in DEXTROSE 5% 45 ML IV SCH ×3 (10:33→20:43)
[2016-07-01 13:16] VITALS: BP 99/75; PULSE 152; RESP 16
--- NOTE | 2016-07-01 13:40 | PN ---
DATE: 07/01/2016 LEVEL OF CARE: GIP. SUBJECTIVE/INTERVAL HISTORY: Patient is a 36-year-old female with metastatic gastric cancer and fa iled multiple lines of chemotherapy. Patient continues to decline and has increasing shortness of b reath and pain for which Dilaudid dose has been progressively increased to 9 mg. Patient's terminal symptoms seem controlled now. Patient also had intermittent low grade fever, possibly from aspirat ion syndrome. The patient also had mild hematuria, and the urine output has declined. Patient's p. o. intake has also declined significantly. PHYSICAL EXAMINATION: GENERAL: The patient is lethargic but arousable. VITAL SIGNS: Temperature 100.8, pulse 153, blood pressure 116/80, O2 saturation 99% on supplemental oxygen. HEENT: No eye discharge or redness. NECK: No mass or JVD. CHEST: Coarse breath sounds anteriorly. CARDIOVASCULAR: S1, S2 normal. Sinus tachycardia. ABDOMEN: Soft. Decreased tenderness. EXTREMITIES: Trace edema. NEUROLOGIC: The patient is lethargic but arousable. IMPRESSION: Metastatic gastric cancer. PLAN: Continue current regimen of IV Dilaudid at 9 mg an hour and will titrate up for comfort care. Patient continues to decline and remains appropriate for GIP level of care. Patient remains on p. o. methadone and will continue as long as she is able to swallow. Plan of care discussed with nursing staff at [facility]. The patient remains terminally il l. Dictated By: VIANCA TERRY/CAROL Conf#: [id number] DID#: [id number]
[2016-07-01 20:00] VITALS: BP 112/72; RESP 18
[2016-07-02] MEDS: HYDROmorphONE 50 MG in DEXTROSE 5% 45 ML IV SCH ×4 (03:30→20:25)
[2016-07-02] MEDS: METHADONE (1 MG/1 ML PO SYG) PO SCH ×3 (05:06→18:52)
[2016-07-02 08:15] VITALS: BP 126/75; RESP 16
--- NOTE | 2016-07-02 15:15 | PN ---
DATE: 07/02/2016 SUBJECTIVE: Followup on metastatic gastric cancer and bilateral pulmonary embolism. The patient co ntinues to have increasing pain mainly in the abdomen and also generalized. Dilaudid dose has been i ncreased to 10 mg an hour. The patient still has pain 7/10. The Dilaudid dose will be increased to 11 mg an hour. The patient did not have any vomiting. P.o. intake has continued to decline. The patient is not drinking enough fluids. No fever, no vomiting. The patient looks weaker, although r emains awake, alert and oriented. PHYSICAL EXAMINATION: VITAL SIGNS: Temperature 98.4, blood pressure 126/75, pulse 138, respirations 16, O2 saturation 100 % on 5 liters nasal cannula. HEENT: No eye discharge or redness. Extraocular movements intact. Oropharynx revealed dry oral mu cosa. Nose and ears normal. NECK: Supple. No mass, no thyromegaly. CHEST: Fairly clear. CARDIOVASCULAR: S1, S2 normal. No murmur. ABDOMEN: Soft. Upper abdominal tenderness present. No guarding or rigidity. Bowel sounds present . EXTREMITIES: No leg edema. NEUROLOGIC: The patient is awake, alert, fairly oriented with no gross focal deficit. IMPRESSION: Metastatic gastric cancer. PLAN: As mentioned above, Dilaudid dose will be increased to 11 mg an hour and it will be titrated up as needed. Continue methadone 2 mg every 6 hours as long as she is able to swallow. Continue Ati van for her anxiety. Patient remains appropriate for hospice care at [facility] level. Dictated By: VIANCA TERRY/CAROL Conf#: [id number] DID#: [id number]
[2016-07-02 21:38] VITALS: BP 126/74; RESP 19
[2016-07-03] MEDS: METHADONE (1 MG/1 ML PO SYG) PO SCH ×3 (00:02→12:14)
[2016-07-03] MEDS: HYDROmorphONE 50 MG in DEXTROSE 5% 45 ML IV SCH ×5 (02:11→23:40)
[2016-07-03 07:50] VITALS: BP 126/89; RESP 18
--- NOTE | 2016-07-03 15:34 | PN ---
DATE: 07/03/2016 LEVEL OF CARE: GIP SUBJECTIVE AND INTERVAL HISTORY: The patient, since yesterday, continues to have increasing pain an d Dilaudid dose has been increased to 11.5 mg an hour. The patient is also short of breath. The toni lion is able to take p.o. liquids. Therefore, we will increase her methadone dose to 5 mg t.i.d. Will continue to optimize IV Dilaudid drip in case the patient continues to remain symptomatic. Lauryn mims does look weaker and pale. No reported vomiting. No reported bleeding from any site. PHYSICAL EXAMINATION: GENERAL: The patient is awake, follows simple commands. VITAL SIGNS: Temperature 99, pulse 145, respirations 18, blood pressure 126/89, O2 saturation 96% o n 5 liters nasal cannula. HEENT: No eye discharge or redness. Oropharynx clear. NECK: Supple. No JVD, no mass. CHEST: Fairly clear. CARDIOVASCULAR: Sinus tachycardia. No murmur. ABDOMEN: Soft. Upper abdominal tenderness present. No guarding or rigidity. Bowel sounds plus. EXTREMITIES: No leg edema. NEUROLOGIC: The patient is lethargic but arousable and follows simple commands. IMPRESSION: Metastatic gastric carcinoma. PLAN: As mentioned above, will increase methadone to 5 mg t.i.d. and optimize IV Dilaudid. Will tit rate 0.5 mg every hour with a maximum dose of 50 mg an hour, and will continue atropine drops for se cretion. Plan of care discussed with nursing staff who were present, and also with social wor ker who also happened to be in the room. Dictated By: VIANCA TERRY/CAROL Conf#: [id number] DID#: [id number]
[2016-07-03 20:00] VITALS: BP 124/77; RESP 18
[2016-07-03] MEDS: METHADONE (1 MG/ML 5 ML PO UD SYG) PO SCH (20:38)
[2016-07-04] MEDS: HYDROmorphONE 50 MG in DEXTROSE 5% 45 ML IV SCH ×5 (04:00→21:44)
[2016-07-04 08:12] VITALS: BP 125/91; RESP 20
[2016-07-04] MEDS: ONDANSETRON 4 MG INJ IV PRN (10:28)
[2016-07-04] MEDS: METHADONE (1 MG/ML 5 ML PO UD SYG) PO SCH ×3 (10:28→20:59)
--- NOTE | 2016-07-04 15:51 | PN ---
DATE: 07/04/2016 SUBJECTIVE: Follow up on metastatic gastric cancer. The patient has continued to decline and has p oor p.o. intake. The patient's Dilaudid dose has been increased to 40 mg an hour. The patient was also started on methadone 5 mg t.i.d. No reported vomiting, no reported fever or chills. The patie nt continues to remain tachycardic with heart rate between 130s and 140s. No reported bleeding from any site. The patient remains responsive. The patient does have slightly labored respirations. PHYSICAL EXAMINATION: GENERAL: The patient is awake and responsive. VITAL SIGNS: Blood pressure 125/91, pulse 138, respirations 20, temperature 98.5, O2 saturation 100 % on 5 liters nasal cannula. HEENT: No eye discharge or redness. Nose and ears normal. Oropharynx revealed dry oral mucosa. NECK: Supple, no mass. CHEST: Revealed diminished air entry at bases. CARDIOVASCULAR: S1, S2 normal. Sinus tachycardia. ABDOMEN: Soft, mildly distended, upper abdominal tenderness has improved. EXTREMITIES: Trace edema. No clubbing, cyanosis. NEUROLOGIC: The patient is responsive, but does have increasingly generalized weakness and is spend ing her time in the bed. IMPRESSION: Metastatic gastric cancer. PLAN: Continue IV Dilaudid drip at current rate of 40 mg an hour and continue methadone, supplement al oxygen and also continue Ativan for anxiety. The patient remains appropriate for [facility] level of [facility]. Dictated By: VIANCA TERRY/CAROL Conf#: [id number] DID#: [id number]
[2016-07-04 20:36] VITALS: BP 120/82; RESP 19
[2016-07-05] MEDS: HYDROmorphONE 50 MG in DEXTROSE 5% 45 ML IV SCH ×2 (02:06→05:47)
[2016-07-05 07:30] VITALS: BP 140/64; RESP 18
[2016-07-05] MEDS: METHADONE (1 MG/ML 5 ML PO UD SYG) PO SCH ×3 (08:35→20:42)
[2016-07-05] MEDS: HYDROMORPHONE IV SCH ×3 (09:46→22:14)
[2016-07-05] MEDS: DEXTROSE 5% IV SCH ×3 (09:46→22:14)
[2016-07-05] MEDS: BISACODYL 10 MG SUPP PR PRN (11:13)
[2016-07-05 20:35] VITALS: BP 122/81; RESP 18
--- NOTE | 2016-07-06 00:19 | PN ---
DATE: 07/05/2016 SUBJECTIVE: Follow up on metastatic cancer of the stomach, pulmonary embolism. The patient is comp laining of generalized pain. No reported vomiting, also appears short of breath. Patient is alread y on 15 mg of Dilaudid per hour and also 5 mg of methadone 3 times a day. The patient remains awake and responsive, continues to have significant tachycardia. No reported bleeding from any site. PHYSICAL EXAMINATION: GENERAL: The patient is awake, alert. VITAL SIGNS: Temperature 98.6, pulse 114, respiration 18, blood pressure 140/64, O2 saturation 98% on 5 liters nasal cannula. HEENT: No eye discharge or redness. Dry oral mucosa. NECK: Supple. No mass, no thyromegaly. CHEST: Revealed occasional coarse breath sounds anteriorly. CARDIOVASCULAR: Sinus tachycardia. ABDOMEN: Soft. Upper abdominal tenderness present. Mildly distended. EXTREMITIES: Trace edema. NEUROLOGIC: The patient is awake, alert, and follows simple commands. IMPRESSION: Metastatic gastric cancer. Remains symptomatic with pain and shortness of breath. Will increase methadone to 10 mg t.i.d. Continue Dilaudid at 15 mg an hour and will optimize comfort ca re. Continue atropine drops for secretion, Ativan IV for anxiety. Patient was complaining of consti pation and was given Dulcolax suppository this morning. We will continue to follow. The patient re bryan appropriate for [facility] level of care. Dictated By: VIANCA TERRY/CAROL Conf#: [id number] DID#: [id number]
[2016-07-06] MEDS: HYDROMORPHONE IV SCH ×3 (03:46→17:12)
[2016-07-06] MEDS: DEXTROSE 5% IV SCH ×3 (03:46→17:12)
[2016-07-06] MEDS: BISACODYL 10 MG SUPP PR PRN (03:54)
[2016-07-06] MEDS: METOCLOPRAMIDE 10 MG INJ IV PRN (04:12)
[2016-07-06 07:25] VITALS: BP 118/72; RESP 18
[2016-07-06] MEDS: METHADONE (1 MG/ML 5 ML PO UD SYG) PO SCH ×3 (09:17→21:00)
--- NOTE | 2016-07-06 17:22 | PN ---
DATE: 07/06/2016 SUBJECTIVE: Follow up on metastatic gastric CA and pulmonary embolism. The patient continues to re port pain 11/12. The patient also appears short of breath. No reported bleeding from any site, no r eported vomiting, no reported seizures. PHYSICAL EXAMINATION: GENERAL: The patient is awake. VITAL SIGNS: Temperature 96.8, pulse 140, respirations 18, blood pressure 122/81, O2 saturation 100 % on 5 liters nasal cannula. HEENT: No eye discharge or redness. Oropharynx revealed dry oral mucosa. NECK: No JVD. CHEST: Occasional coarse breath sounds. Equal air entry. CARDIOVASCULAR: S1, S2 normal. No murmur. ABDOMEN: Soft, mildly distended, and had upper abdominal tenderness. EXTREMITIES: No edema, no cyanosis. NEUROLOGIC: The patient is awake, follows simple commands, and has generalized weakness. IMPRESSION: 1. Metastatic gastric cancer. 2. Pulmonary embolism. PLAN: Will increase methadone to 10 mg t.i.d. and will also increase Dilaudid to 20 mg hour and gita l titrate up by 1 mg every hour for comfort care. The patient remains appropriate for [facility] level of care. [facility] care [facility]. Dictated By: VIANCA TERRY/CAROL Conf#: [id number] DID#: [id number]
[2016-07-06 20:15] VITALS: BP 134/98; RESP 20
[2016-07-07] MEDS: DEXTROSE 5% IV SCH ×3 (00:39→20:59)
[2016-07-07] MEDS: HYDROMORPHONE IV SCH ×3 (00:39→20:59)
[2016-07-07] MEDS: ONDANSETRON 4 MG INJ IV PRN ×2 (03:56→13:40)
[2016-07-07 07:57] VITALS: BP 119/83; RESP 21
[2016-07-07] MEDS: METHADONE (1 MG/ML 5 ML PO UD SYG) PO SCH ×3 (09:00→20:32)
--- NOTE | 2016-07-07 11:41 | PN ---
Date/Time of Note Date/Time of Note DATE: 07/07/16 TIME: 11:40 Assessment/Plan VTE Prophylaxis VTE Prophylaxis Intervention: other Lines/Catheters IV Catheter Type (from Nrsg): Peripheral IV Urinary Cath still in place: Yes Reason Cath still needed: skin wounds contaminated by urine Assessment/Plan Chief Complaint/Hosp Course 1. Metastatic gastric cancer. 2. Pulmonary embolism. - hospice care, pain management Problems: Subjective 24 Hr Interval Summary Free Text/Dictation Patient complain of pain Exam/Review of Systems Vital Signs Vitals Vital Signs Date Time Temp Pulse Resp B/P Pulse Ox O2 Delivery O2 Flow Rate FiO2 07/07/16 07:57 98.7 133 21 119/83 100 07/07/16 05:29 4.0 07/06/16 13:35 Nasal Cannula Intake and Output 07/06/16 07/06/16 07/07/16 15:00 23:00 07:00 Intake Total 136 ml 600 ml 510 ml Output Total 400 ml 600 ml Balance 136 ml 200 ml -90 ml Exam Constitutional: well developed Head: atraumatic, normocephalic Neck: supple Respiratory: clear to auscultation Cardiovascular: regular rate and rhythm Gastrointestinal: non-tender, soft Medications Medications Current Medications Acetaminophen (Tylenol Supp) 650 mg Q4H PRN [place] FEVER; TEMP ABOVE 100 F; Start 06/27/16 at 15:00 Lorazepam (Ativan) 0.5 mg Q4H PRN IV ANXIETY Last administered on 06/30/16 21: 42; Admin Dose 0.5 MG; Start 06/27/16 at 15:00 Ondansetron HCl (Zofran Inj) 4 mg Q4H PRN IV NAUSEA AND/OR VOMITING Last administered on 07/07/16 03:56; Admin Dose 4 MG; Start 06/27/16 at 15:00 Bisacodyl (Dulcolax Supp) 10 mg DAILY PRN [place] CONSTIPATION Last administered on 07/06/16 03:54; Admin Dose 10 MG; Start 06/27/16 at 15:30 Atropine Sulfate (Atropine 1% Oph) 2 drop Q2H PRN SL SECRETIONS; Start at 15:30 Metoclopramide HCl 10 mg 10 mg Q6H PRN IV NAUSEA Last administered on 07/06/16 04:12; Admin Dose 10 MG; Start 06/28/16 at 00:00 Hydromorphone HCl/ Dextrose/Water (Dilaudid/D5W) 150 ml @ 2.5 mls/hr TITRATE IV Last administered on 07/07/16t 11:02; Admin Dose 20 MLS/HR; Start 07/05/16 at 08:30 Methadone HCl (Methadone Liq) 15 mg TID PO ; Start 07/06/16 at 21:00 BENI MARSHALL Jul 07, 2016 11:41
[2016-07-07] MEDS: LORAZEPAM 2 MG INJ IV PRN (13:42)
[2016-07-07 20:16] VITALS: BP 134/78; RESP 20
[2016-07-08] MEDS: HYDROMORPHONE IV SCH ×3 (04:13→19:59)
[2016-07-08] MEDS: DEXTROSE 5% IV SCH ×3 (04:13→19:59)
[2016-07-08 08:10] VITALS: BP 111/79; RESP 24
[2016-07-08] MEDS: METHADONE (1 MG/ML 5 ML PO UD SYG) PO SCH ×3 (08:52→20:01)
--- NOTE | 2016-07-08 13:05 | PN ---
Date/Time of Note Date/Time of Note DATE: 07/08/16 TIME: 13:05 Assessment/Plan VTE Prophylaxis VTE Prophylaxis Intervention: other Lines/Catheters IV Catheter Type (from Nrs): Peripheral IV Urinary Cath still in place: Yes Reason Cath still needed: skin wounds contaminated by urine Assessment/Plan Chief Complaint/Hosp Course 1. Metastatic gastric cancer. 2. Pulmonary embolism. - hospice care, pain management Problems: Subjective 24 Hr Interval Summary Free Text/Dictation Patient appears comfortable, not responsive to voice Exam/Review of Systems Vital Signs Vitals Vital Signs Date Time Temp Pulse Resp B/P Pulse Ox O2 Delivery O2 Flow Rate FiO2 07/08/16 08:10 97.5 134 24 111/79 100 07/08/16 07:53 Nasal Cannula 5.0 Intake and Output 07/07/16 07/07/16 07/08/16 14:59 22:59 06:59 Intake Total 50 ml 310 ml 190 ml Output Total 800 ml 1800 ml Balance 50 ml -490 ml -1610 ml Exam Constitutional: well developed Head: atraumatic, normocephalic Neck: supple Respiratory: diminished breath sounds Cardiovascular: regular rate and rhythm Gastrointestinal: non-tender, soft Medications Medications Current Medications Acetaminophen (Tylenol Supp) 650 mg Q4H PRN [place] FEVER; TEMP ABOVE 100 F; Start 06/27/16 at 15:00 Lorazepam (Ativan) 0.5 mg Q4H PRN IV ANXIETY Last administered on 07/07/16 13: 42; Admin Dose 0.5 MG; Start 06/27/16 at 15:00 Ondansetron HCl (Zofran Inj) 4 mg Q4H PRN IV NAUSEA AND/OR VOMITING Last administered on 07/07/16 13:40; Admin Dose 4 MG; Start 06/27/16 at 15:00 Bisacodyl (Dulcolax Supp) 10 mg DAILY PRN MD CONSTIPATION Last administered on 07/06/16 03:54; Admin Dose 10 MG; Start 06/27/16 at 15:30 Atropine Sulfate (Atropine 1% Oph) 2 drop Q2H PRN SL SECRETIONS; Start at 15:30 Metoclopramide HCl 10 mg 10 mg Q6H PRN IV NAUSEA Last administered on 07/06/16 04:12; Admin Dose 10 MG; Start 06/28/16 at 00:00 Hydromorphone HCl/ Dextrose/Water (Dilaudid/D5W) 150 ml @ 2.5 mls/hr TITRATE IV Last administered on 07/08/16 04:13; Admin Dose 20 MLS/HR; Start 07/05/16 at 08:30 Methadone HCl (Methadone Liq) 15 mg TID PO ; Start 07/06/16 at 21:00 BENI MARSHALL Jul 08, 2016 13:05
[2016-07-08 20:06] VITALS: BP 83/51; RESP 18
[2016-07-09] MEDS: HYDROMORPHONE IV SCH ×3 (02:45→18:18)
[2016-07-09] MEDS: DEXTROSE 5% IV SCH ×3 (02:45→18:18)
[2016-07-09] MEDS: METHADONE (1 MG/ML 5 ML PO UD SYG) PO SCH ×3 (08:23→20:36)
[2016-07-09] MEDS: LORAZEPAM 2 MG INJ IV PRN ×3 (08:55→22:28)
[2016-07-09 08:56] VITALS: BP 199/95; RESP 42
[2016-07-09 09:30] VITALS: BP 87/65
[2016-07-09 20:05] VITALS: BP 55/31; RESP 22
--- NOTE | 2016-07-10 00:05 | PN ---
DATE: 07/09/2016 SUBJECTIVE: Follow up on metastatic gastric cancer, pulmonary embolism. The patient, over the week end, declined further and is unable to take anything p.o. The patient could not take even methadone liquid and Dilaudid dose has been increased to 23 mg an hour. The patient does have occasional epi sodes of irregular breathing and chest congestion. No reported fever. The patient has dropped her blood pressure into 80s. No reported vomiting. PHYSICAL EXAMINATION: GENERAL: The patient is lethargic. VITAL SIGNS: Temperature 98.4, pulse 138, blood pressure 87/65, respirations 42, O2 saturation 100% on 5 liters. NECK: No mass. CHEST: Revealed coarse breath sounds. CARDIOVASCULAR: S1, S2 normal. No murmur. Sinus tachycardia. ABDOMEN: Upper abdominal tenderness present. EXTREMITIES: No edema. NEUROLOGIC: The patient is lethargic and no useful communication was possible. IMPRESSION: 1. Metastatic gastric cancer. 2. Pulmonary embolism. PLAN: Will increase Dilaudid to 24 mg hour and we will titrate up by 1 mg an hour to optimize comfo rt. The patient remains terminally ill and continues to decline. The patient remains appropriate f or [facility] level of care. Dictated By: VIANCA COELLO MD AB/NTS Conf#: [id number] DID#: [id number] CC: TEREZA NEGRETE MD;*EndCC*
[2016-07-10] MEDS: DEXTROSE 5% IV SCH (00:30)
[2016-07-10] MEDS: HYDROMORPHONE IV SCH (00:30)
[2016-07-10] MEDS: LORAZEPAM 2 MG INJ IV PRN (02:11)
--- NOTE | 2016-07-10 22:21 | DES ---
DATE OF ADMISSION: 06/10/2016 DATE OF : 07/10/2016 CAUSE, OF : Metastatic gastric cancer, comorbid deep vein thrombosis, and pulmonary embolism. REASON FOR ADMISSION: The patient was a 36-year-old female with metastatic gastric cancer, was admi tted at [facility] on 06/10/2016. The patient was seen by Dr. Leung. The patient has failed multiple lines of chemotherapy and was recommended hospice. The patient's and f [facility] agreed. The patient was seen by Dr. Meyer from palliative care standpoint. The pat prasanna was admitted under [facility] level of care on 06/25/2016. The patient prior to that was on Dilaudid WATER QUALITY TESTER. She was switched to Dilaudid drip. Prior to admission, the patient was getting 9 mg of Dilaud id IV every 4 hours. She was switched to IV Dilaudid 2.5 mg an hour. Over the course of next few d ays, patient continued to decline and has increasing need for Dilaudid for pain and shortness of mikal ath. The patient's p.o. intake also declined. The patient's Dilaudid dose was slowly optimized sin ce her admission under [facility] level of care. The patient was also given atropine drops for secretions . The patient was also initially started on methadone to optimize pain control, which was subsequen tly increased to 50 mg t.i.d. however, the patient quit taking that, as she was unable to take anyth ing p.o. The patient, at 6:00, was found to be unresponsive. Charge nurse was called and the patie nt had no pulse or blood pressure. She was pronounced at 6:16 a.m. I was informed by the [facility] ent's nurse and Liv was informed. The patient's was also informed by nursing staff. Dictated By: VIANCA COELLO MD AB/NTS Conf#: [id number] DID#: [id number] CC: TEREZA NEGRETE MD;*EndCC*
== END 2016-07-10 11:00 | disposition expired | DRG 175 ==
LOC: E/R 22:33 → MS4 06-10 01:43 → TEL 06-16 19:00 → PP2 06-27 15:14
PROVIDERS: ADMIT Internal Medicine; ATTEND Internal Medicine
PROC: 0W9G3ZZ Drainage of Peritoneal Cavity, Percutaneous Approach (ICD-10-PCS; principal; 2016-06-11)
DX: I26.99 Other pulmonary embolism without acute cor pulmonale (principal); J96.01 Acute respiratory failure with hypoxia; R18.0 Malignant ascites; D68.69 Other thrombophilia; C79.9 Secondary malignant neoplasm of unspecified site; J90 Pleural effusion, not elsewhere classified; C16.9 Malignant neoplasm of stomach, unspecified; E87.1 Hypo-osmolality and hyponatremia; I82.412 Acute embolism and thrombosis of left femoral vein; J98.11 Atelectasis; D50.9 Iron deficiency anemia, unspecified; E66.9 Obesity, unspecified; I10 Essential (primary) hypertension; R07.9 Chest pain, unspecified; G89.3 Neoplasm related pain (acute) (chronic); Z51.5 Encounter for palliative care; K59.00 Constipation, unspecified; Z68.33 Body mass index [BMI] 33.0-33.9, adult; Z66 Do not resuscitate
CPT/HCPCS: 36415; 71010; 71275; 74010; 76705; 76801; 80048; 80053; 82378; 82728; 82962; 83540; 83605; 83690; 83735; 84100; 84484; 84702; 84703; 85025; 85610; 85730; 87081; 93005; 93308; 93923; 94640; 94664; 96374; 96375; 96376; J1170; J1644; J1650; J1940; J2060; J2250; J2270; J2405; J2765; J2920; J3010; J3475; J3480; J7030; Q9967